=== PATIENT | male | born 1960 | race Caucasian/White ===

== ENCOUNTER → 2017-07-19 | Day surgery (SDC) | payer MEDICARE ==
--- NOTE | 2017-07-19 16:19 | RADIOLOGY REPORT (SQ) ---
EXAM DESCRIPTION: ARTHRO SHOULDER; FLUORO/NEEDLE PLACEMENT COMPLETED DATE/TIME: 07/19/2017 2:23 pm REASON FOR STUDY: SUPERIOR GLENOID LABRUM LESION OF RIGHT SHOULDER, S43.431A SUPERIOR GLENOID LABRU M LESION OF RIGHT SHOULDER, I COMPARISON: None. FLUOROSCOPY TIME: 6 seconds 1 digital radiographic image saved to PACS. LIMITATIONS: None. PROCEDURE: Procedure, risks, benefits and alternatives explained to patient who then gave written co nsent. The posterior right shoulder was marked and a time out was called for correct procedure verifi cation. Posterior entry site marked using fluoroscopic guidance. Shoulder prepped and draped using sterile technique. Local anesthesia achieved using 6 mL 1% lidocaine injection. 22 gauge spinal nee dle introduced into the joint space under direct fluoroscopic visualization. Non-ionic contrast insti lled to confirm intra-articular position. Dilute gadolinium solution then injected. Needle removed a nd entry site covered with sterile bandage. No immediate complications noted. TECHNIQUE: Digital images acquired during fluoroscopy and stored on PACS. Patient immediately take n to the MR suite for additional imaging. INJECTION LOCATION: Posterior right shoulder. CONTRAST TYPE AND AMOUNT: 0.5 mL of Isovue 300 injected to confirm intra-articular needle placement, followed by 15 mL of Prohance/Saline mixture for MR arthrogram. IMPRESSION: SUCCESSFUL NEEDLE PLACEMENT AND INJECTION FOR RIGHT SHOULDER MR ARTHROGRAM USING POSTERI OR APPROACH. COMMENT: Quality ID 145: Final reports for procedures using fluoroscopy that document radiation exp osure indices, or exposure time and number of fluorographic images (if radiation exposure indices are not available) TECHNICAL DOCUMENTATION: JOB ID: [id number] [employer]- All Rights Reserved Reading location - IP/workstation name: [facility]
--- NOTE | 2017-07-19 16:27 | RADIOLOGY REPORT (SQ) ---
EXAM DESCRIPTION: MRI RT UPPER JOINT WITH COMPLETED DATE/TIME: 07/19/2017 2:53 pm REASON FOR STUDY: SUPERIOR GLENOID LABRUM LESION OF RIGHT SHOULDER, S43.431A SUPERIOR GLENOID LABRU M LESION OF RIGHT SHOULDER, I COMPARISON: None. TECHNIQUE: Right shoulder images acquired and stored on PACS. Oblique coronal, oblique sagittal, and axial imaging to include fat sensitive sequences as T1, water sensitive sequences as FST2/STIR, and contrast sensitive sequences as FST1. LIMITATIONS: None. FINDINGS: JOINT DISTENTION: Intra-articular gadolinium. No extension into the subacromial/ subdelto id bursa. There is some extravasation along the subcoracoid recess. BONE MARROW AND CORTEX: Small subcortical cysts along the posterior aspect right humeral head greater tuberosity. There is bone marrow edema just deep to the superior labrum, along the bony glenoid AC JOINT: Type 1 acromion. Moderate AC hypertrophy with bony spurring and synovial thickening best sh own on sagittal image 9 GLENOHUMERAL JOINT: No subluxation or dislocation. No focal chondral defects or reactive bone changes . ROTATOR CUFF: Intact without significant tendinopathy, partial or full-thickness tears. No peritendin itis. LABRUM AND BICEPS LABRAL COMPLEX: Intra-articular long head biceps tendon is high in signal from tend inopathy. There is a superior labral tear at its attachment extending anteriorly and posteriorly wit hout paralabral cyst. This best shown on axial images 7-10 and sagittal images 6 through 9. INFERIOR LABRAL COMPLEX: Bony glenoid and labrum intact. IGHL intact without thickening or tear. No p aralabral cysts. ADJACENT SOFT TISSUES: No masses or nodes. OTHER: Trace fluid without gadolinium in the subacromial/subdeltoid bursa indicating mild bursitis. IMPRESSION: Intra-articular long head biceps tendinopathy with superior labral tear. Reactive bony glenoid marrow edema TECHNICAL DOCUMENTATION: JOB ID: [id number] [employer]- All Rights Reserved Reading location - IP/workstation name: [email or web address]
== END ==
LOC: RAD 13:30
PROVIDERS: ATTEND Orthopaedic Surgery
PROC: BP09ZZZ Plain Radiography of Left Shoulder (ICD-10-PCS; principal; 2017-07-19)
DX: S43.431A Superior glenoid labrum lesion of right shoulder, initial encounter (principal); X58.XXXA Exposure to other specified factors, initial encounter
CPT/HCPCS: 73222; 73040; 77002; A9576

== ENCOUNTER → 2017-07-20 | Day surgery (SDC) | payer MEDICARE ==
[~2017-07-20] MED LIST: LIDOCAINE 1% INJ-PF (10 MG/ML) 30 ML SDV ONE
--- NOTE | 2017-07-20 15:04 | RADIOLOGY REPORT (SQ) ---
EXAM DESCRIPTION: ARTHRO SHOULDER; FLUORO/NEEDLE PLACEMENT COMPLETED DATE/TIME: 07/20/2017 1:13 pm REASON FOR STUDY: UNSPECIFIED INJURY OF LEFT SHOULDER S49.92XA UNSP INJURY OF LEFT SHOULDER AND UPP ER ARM, INIT EN COMPARISON: None. FLUOROSCOPY TIME: 9 seconds 2 digital radiographic images saved to PACS. LIMITATIONS: None. PROCEDURE: Procedure, risks, benefits and alternatives explained to patient who then gave written co nsent. The posterior left shoulder was marked and a time out was called for correct procedure verific ation. Posterior entry site marked using fluoroscopic guidance. Shoulder prepped and draped using s terile technique. Local anesthesia achieved using 8 mL of 1% lidocaine injection. 22 gauge spinal n eedle introduced into the joint space under direct fluoroscopic visualization. Non-ionic contrast ins tilled to confirm intra-articular position. Dilute gadolinium solution then injected. Needle removed and entry site covered with sterile bandage. No immediate complications noted. TECHNIQUE: Digital images acquired during fluoroscopy and stored on PACS. Patient immediately take n to the MR suite for additional imaging. INJECTION LOCATION: Posterior left shoulder. CONTRAST TYPE AND AMOUNT: 1 mL of Isovue-300 was injected to confirm intra-articular needle placement followed by 10 mL of dilute ProHance saline mixture for MR arthrogram IMPRESSION: SUCCESSFUL NEEDLE PLACEMENT AND INJECTION FOR LEFT SHOULDER MR ARTHROGRAM USING POSTERIO R APPROACH. COMMENT: Quality ID 145: Final reports for procedures using fluoroscopy that document radiation exp osure indices, or exposure time and number of fluorographic images (if radiation exposure indices are not available) TECHNICAL DOCUMENTATION: JOB ID: [id number] [employer]- All Rights Reserved Reading location - IP/workstation name: [email or web address]
--- NOTE | 2017-07-20 15:04 | RADIOLOGY REPORT (SQ) ---
EXAM DESCRIPTION: ARTHRO SHOULDER; FLUORO/NEEDLE PLACEMENT COMPLETED DATE/TIME: 07/20/2017 1:13 pm REASON FOR STUDY: UNSPECIFIED INJURY OF LEFT SHOULDER S49.92XA UNSP INJURY OF LEFT SHOULDER AND UPP ER ARM, INIT EN COMPARISON: None. FLUOROSCOPY TIME: 9 seconds 2 digital radiographic images saved to PACS. LIMITATIONS: None. PROCEDURE: Procedure, risks, benefits and alternatives explained to patient who then gave written co nsent. The posterior left shoulder was marked and a time out was called for correct procedure verific ation. Posterior entry site marked using fluoroscopic guidance. Shoulder prepped and draped using s terile technique. Local anesthesia achieved using 8 mL of 1% lidocaine injection. 22 gauge spinal n eedle introduced into the joint space under direct fluoroscopic visualization. Non-ionic contrast ins tilled to confirm intra-articular position. Dilute gadolinium solution then injected. Needle removed and entry site covered with sterile bandage. No immediate complications noted. TECHNIQUE: Digital images acquired during fluoroscopy and stored on PACS. Patient immediately take n to the MR suite for additional imaging. INJECTION LOCATION: Posterior left shoulder. CONTRAST TYPE AND AMOUNT: 1 mL of Isovue-300 was injected to confirm intra-articular needle placement followed by 10 mL of dilute ProHance saline mixture for MR arthrogram IMPRESSION: SUCCESSFUL NEEDLE PLACEMENT AND INJECTION FOR LEFT SHOULDER MR ARTHROGRAM USING POSTERIO R APPROACH. COMMENT: Quality ID 145: Final reports for procedures using fluoroscopy that document radiation exp osure indices, or exposure time and number of fluorographic images (if radiation exposure indices are not available) TECHNICAL DOCUMENTATION: JOB ID: [id number] [employer]- All Rights Reserved Reading location - IP/workstation name: [facility]-[email or web address]
--- NOTE | 2017-07-20 15:17 | RADIOLOGY REPORT (SQ) ---
EXAM DESCRIPTION: MRI LT UPPER JOINT WITH COMPLETED DATE/TIME: 07/20/2017 1:45 pm REASON FOR STUDY: UNSPECIFIED INJURY OF LEFT SHOULDER S49.92XA UNSP INJURY OF LEFT SHOULDER AND UPP ER ARM, INIT EN COMPARISON: None. TECHNIQUE: Left shoulder images acquired and stored on PACS. Oblique coronal, oblique sagittal, and axial imaging to include fat sensitive sequences as T1, water sensitive sequences as FST2/STIR, and c ontrast sensitive sequences as FST1. LIMITATIONS: None. FINDINGS: JOINT DISTENTION: Adequate distention for interpretation. No leakage of intra-articular c ontrast into the subacromial/subdeltoid bursa. BONE MARROW AND CORTEX: No aggressive marrow replacement process worrisome for metastatic disease. S mall subcortical cyst posterior left humeral head at the greater tuberosity. AC JOINT: Type 1 acromion. Moderate AC joint hypertrophy with bony spurring and edema in the distal c lavicle/acromion. This best shown on coronal image 8, with mild narrowing of the subacromial space GLENOHUMERAL JOINT: No subluxation or dislocation. No focal chondral defects or reactive bone changes . ROTATOR CUFF: Intact without significant tendinopathy, partial or full-thickness tears. No peritendin itis. LABRUM AND BICEPS LABRAL COMPLEX: Intra-articular long head biceps tendon is high signal from tendino priya. There is a small superior labral tear on axial images 5-7. INFERIOR LABRAL COMPLEX: Bony glenoid and labrum intact. IGHL intact without thickening or tear. No p aralabral cysts. ADJACENT SOFT TISSUES: No masses or nodes. OTHER: No other significant finding. IMPRESSION: Small superior labral tear at the long head biceps tendon attachment. Long head biceps tendinopathy Acromioclavicular joint bony spurring with narrowing of the subacromial space. No rotator cuff tendon tear identified TECHNICAL DOCUMENTATION: JOB ID: [id number] [employer]- All Rights Reserved Reading location - IP/workstation name: [email or web address]
== END ==
LOC: RAD 12:38
PROVIDERS: ATTEND Orthopaedic Surgery
PROC: BP09ZZZ Plain Radiography of Left Shoulder (ICD-10-PCS; principal; 2017-07-20)
DX: S49.92XA Unspecified injury of left shoulder and upper arm, initial encounter (principal); S43.431A Superior glenoid labrum lesion of right shoulder, initial encounter; X58.XXXA Exposure to other specified factors, initial encounter
CPT/HCPCS: 73222; 73040; 77002; A9576; J3490

== ENCOUNTER 2017-11-12 15:13 | Inpatient (IN) | payer MEDICARE ==
[2017-11-12] MEDS ORDERED: PROMETHAZINE HCL INJ 25 MG/1 ML VIAL IM ONE (15:38)
[2017-11-12] MEDS ORDERED: MORPHINE SULFATE 10 MG/ML INJ IV ONE (15:48)
--- NOTE | 2017-11-12 15:53 | ER Document Report ---
ED General - General TRAVEL OUTSIDE OF THE [place] IN LAST 30 DAYS: No <DELL BRISCOE - Last Filed: 11/12/17 19:14> <VALERIE QUIGLEY - Last Filed: 11/12/17 22:42> - General Chief Complaint: Abdominal Pain Stated Complaint: ABDOMINAL PAIN Time Seen by Provider: 11/12/17 15:37 - HPI Notes: Patient is a 56-year-old male with a history of peptic ulcer disease, chronic back pain, and hypertension who presents to the ED complaining of severe epigastric pain with associated nausea and vomiting over the last 2 days. Patient states that he has not had a bowel movement in 2 days and has not urinated in 2 days as well. Patient states that his last bowel movement he believed was dark colored stool. Patient states that he does have a history of bleeding ulcers. Patient states that he has been having nausea and vomiting with just a scant amount of red blood noted. Patient states that he has vomited relatively nonstop over the last 2 days. He has not been able to eat or drink anything. Patient states that he feels like he has to urinate, but cannot. Patient states that he is on morphine tablets, but that has not helped with his pain at all. He otherwise has not had any other recent illness. Denies any surgical history to his abdomen. Denies any IV drug use or alcohol intake. His last endoscopy was about 5 years ago. Denies any headache, fever, neck pain, URI, sore throat, chest pain, palpitations, syncope, cough, shortness of breath, wheeze, dyspnea, diarrhea, acute back pain, numbness/ tingling, saddle anesthesia, muscle paralysis/weakness, or rash. Surgical hx of cholecystectomy. (DELL BRISCOE) - Related Data Allergies/Adverse Reactions: No Known Allergies Allergy (Verified 11/12/17 17:28) Past Medical History - Social History Smoking Status: Current Every Day Smoker Family History: Reviewed & Not Pertinent <DELL BRISCOE - Last Filed: 11/12/17 19:14> Review of Systems - Review of Systems -: Yes All other systems reviewed and negative <DELL BRISCOE - Last Filed: 11/12/17 19:14> Physical Exam <DELL BRISCOE - Last Filed: 08/05/18 19:14> <VALERIE QUIGLEY - Last Filed: 11/12/17 22:42> - Vital signs Vitals: Temp Pulse Resp BP Pulse Ox 98.9 F 77 18 166/101 H 99 11/12/17 15:13 11/12/17 15:13 11/12/17 15:13 11/12/17 15:13 11/12/17 15:13 - Notes Notes: PHYSICAL EXAMINATION: GENERAL: Well-appearing, well-nourished and in no acute distress. HEAD: Atraumatic, normocephalic. EYES: Pupils equal round and reactive to light, extraocular movements intact, sclera anicteric, conjunctiva are normal. ENT: Nares patent and without discharge. oropharynx clear without exudates. No tonsilar hypertrophy or erythema. Moist mucous membranes. NECK: Normal range of motion, supple without lymphadenopathy LUNGS: Breath sounds clear to auscultation bilaterally and equal. No wheezes rales or rhonchi. HEART: Regular rate and rhythm without murmurs, rubs, gallops. ABDOMEN: Soft abdomen. No guarding, no rebound. No masses appreciated. hypoactive bowel sounds present. No CVA tenderness bilaterally. + tenderness to the epigastrum and mid abdomen. Pt heard dry-heaving in his room. Rectal: stool was light brown and soft. No evidence of melena or hematochezia. No impaction. Musculoskeletal: FROM to passive/active. Strength 5+/5. Extremities: No cyanosis, clubbing, or edema b/l. Peripheral pulses 2+. Capillary refill less than 3 seconds. NEUROLOGICAL: Cranial nerves grossly intact. Normal speech, normal gait. PSYCH: Normal mood, normal affect. SKIN: Warm, Dry, normal turgor, no rashes or lesions noted. (DELL BRISCOE) Course - Laboratory Result Diagrams: 11/12/17 16:48 11/12/17 16:48 <DELL BRISCOE - Last Filed: 11/12/17 19:14> - Laboratory Result Diagrams: 11/12/17 16:48 11/12/17 16:48 <VALERIE QUIGLEY - Last Filed: 11/12/17 22:42> - Re-evaluation Re-evalutation: 11/12/17 19:14 CBC shows a 19.1 white blood cell count with a left shift, no bands. Venous blood gas shows slightly alkalotic blood. CMP shows slightly elevated carbon dioxide, potassium 3.4, CMP otherwise acceptable CK was unremarkable for acute pathology Lactic acid was elevated at 3.2 Stool occult negative. Lipase unremarkable. Rectal temp of 100.3 --toradol ordered Urinalysis was unremarkable and was obtained by Carrillo catheterization. Patient was unable to void and when a Carrillo was placed 300 cc was immediately obtained. Carrillo will remain in place at this time. Reviewed with Dr. Laughlin. Awaiting CT scan of abd/pelv with oral and IV. Plan is to admit planning CT result. Transfer of care to Valerie Pro NP. (DELL BRISCOE) 11/12/17 20:41 Spoke with hospitalist, Dr. Chapo Hurtado who would like a repeat lactic acid drawn. Will hold off on excepting patient for admission until this is resulted. 11/12/17 21:42 Dr. Hurtado requesting EKG and cardiac enzymes to be ran. If negative then he will admit the patient, orders placed. Patient updated on plan of care. 11/12/17 22:40 Cardiac enzymes negative, EKG sinus rhythm no ST elevations or depressions. Will replace KCL IV as patient cannot tolerate PO. Mag normal. Patient admitted to hospitalist. (VALERIE QUIGLEY) - Vital Signs Vital signs: Temp Pulse Resp BP Pulse Ox 100.3 F 78 16 166/79 H 98 11/12/17 19:09 11/12/17 18:43 11/12/17 18:43 11/12/17 18:43 11/12/17 18:43 - Laboratory Laboratory results interpreted by me: 11/12/17 11/12/17 11/12/17 16:48 16:48 16:48 WBC 19.1 H RDW 14.1 H Seg Neuts % (Manual) 96 H Lymphocytes % (Manual) 3 L Monocytes % (Manual) 1 L Abs Neuts (Manual) 18.3 H VBG pH VBG HCO3 Sodium 145.3 H Potassium 3.4 L Chloride 94 L Carbon Dioxide 33 H Glucose 118 H Lactic Acid 3.2 H Calcium 10.4 H Magnesium Direct Bilirubin 0.5 H Creatine Kinase Total Protein 8.3 H Urine Protein Urine Ketones Urine Urobilinogen 11/12/17 11/12/17 11/12/17 16:48 16:48 17:12 WBC RDW Seg Neuts % (Manual) Lymphocytes % (Manual) Monocytes % (Manual) Abs Neuts (Manual) VBG pH 7.47 H VBG HCO3 33.2 H Sodium Potassium Chloride Carbon Dioxide Glucose Lactic Acid Calcium Magnesium Direct Bilirubin Creatine Kinase 49 L Total Protein Urine Protein 30 H Urine Ketones TRACE H Urine Urobilinogen 2.0 H 11/12/17 21:25 WBC RDW Seg Neuts % (Manual) Lymphocytes % (Manual) Monocytes % (Manual) Abs Neuts (Manual) VBG pH VBG HCO3 Sodium Potassium Chloride Carbon Dioxide Glucose Lactic Acid Calcium Magnesium 2.5 H Direct Bilirubin Creatine Kinase Total Protein Urine Protein Urine Ketones Urine Urobilinogen Discharge <DELL BRISCOE - Last Filed: 11/12/17 19:14> - Discharge Admitting Provider: Hospitalist <VALERIE QUIGLEY - Last Filed: 11/12/17 22:42> - Discharge Clinical Impression: Abdominal pain Qualifiers: Abdominal location: epigastric Qualified Code(s): R10.13 - Epigastric pain Vomiting Qualifiers: Vomiting Intractability: unspecified Nausea presence: with nausea Condition: Stable Disposition: ADMITTED OBSERVATION Referrals: TRUDY DAIGLE [Primary Care Provider] - Follow up as needed
[2017-11-12] MEDS: NORMAL SALINE 1000 ML 1,000 ML IV PRN ×3 (16:22→23:04)
[2017-11-12 17:07] LABS: VENOUS BLOOD BASE EXCESS 8.1 mmol/L; VENOUS BLOOD HCO3 33.2 mmol/L (20-32); VENOUS BLOOD PCO2 47.2 mmHg (35-63); VENOUS BLOOD PH 7.47 (7.30-7.42)
[2017-11-12 17:24] LABS: ALANINE AMINOTRANSFERASE 35 U/L (21-72); ALBUMIN 4.8 g/dL (3.5-5.0); ALKALINE PHOSPHATASE 110 U/L (38-126); ANION GAP 18 (5-19); ASPARTATE AMINO TRANSFERASE 29 U/L (17-59); BILIRUBIN,DIRECT 0.5 mg/dL (0.0-0.4); BILIRUBIN,TOTAL 0.9 mg/dL (0.2-1.3); BLOOD UREA NITROGEN 15 mg/dL (7-20); CALCIUM 10.4 mg/dL (8.4-10.2); CARBON DIOXIDE 33 mmol/L (22-30); CHLORIDE 94 mmol/L (98-107); GLUCOSE 118 mg/dL (75-110); LIPASE 44.2 U/L (23-300); POTASSIUM 3.4 mmol/L (3.6-5.0); SODIUM 145.3 mmol/L (137-145); TOTAL PROTEIN 8.3 g/dL (6.3-8.2)
[2017-11-12 17:25] LABS: ALCOHOL < 10 mg/dL (NONE DETECTED)
[2017-11-12 17:26] LABS: HEMATOCRIT 45.1 % (37.9-51.0); HEMOGLOBIN 15.8 g/dL (13.5-17.0); MEAN CORPUSCULAR HEMOGLOBIN 31.2 pg (27.0-33.4); MEAN CORPUSCULAR VOLUME 89 fl (80-97); PLATELET COUNT 367 10^3/uL (150-450); RED BLOOD COUNT 5.06 10^6/uL (4.35-5.55); RED CELL DISTRIBUTION WIDTH 14.1 % (11.5-14.0); WHITE BLOOD COUNT 19.1 10^3/uL (4.0-10.5)
[2017-11-12] MEDS ORDERED: HYDROMORPHONE HCL INJ/PF 2 MG/ML AMPULE IV ONE ×3 (17:27→21:17)
[2017-11-12 17:29] LABS: APPEARANCE,URINE SLIGHTLY-CLOUDY; BILIRUBIN,URINE NEGATIVE (NEGATIVE); COLOR,URINE YELLOW; GLUCOSE, URINE NEGATIVE (NEGATIVE); KETONES,URINE TRACE mg/dL (NEGATIVE); LEUKOCYTE ESTERASE,URINE NEGATIVE (NEGATIVE); NITRITE,URINE NEGATIVE (NEGATIVE); PROTEIN,URINE 30 mg/dL (NEGATIVE); URINE SPECIFIC GRAVITY 1.021
[2017-11-12 17:45] LABS: URINE AMPHETAMINES SCREEN NEGATIVE; URINE BARBITURATES SCREEN NEGATIVE; URINE BENZODIAZEPINES SCREEN NEGATIVE; URINE COCAINE SCREEN NEGATIVE; URINE MARIJUANA (THC) SCREEN UNCONFIRMED POSITIVE; URINE METHADONE SCREEN NEGATIVE; URINE PHENCYCLIDINE SCREEN NEGATIVE
[2017-11-12 17:46] LABS: ABSOLUTE LYMPHOCYTES# (MANUAL) 0.6 10^3/uL (0.5-4.7); ABSOLUTE MONOCYTES # (MANUAL) 0.2 10^3/uL (0.1-1.4); ABSOLUTE NEUTROPHILS# (MANUAL) 18.3 10^3/uL (1.7-8.2); BASOPHILS % (MANUAL) 0 % (0-2); EOSINOPHILS % (MANUAL) 0 % (0-6); LYMPHOCYTES % (MANUAL) 3 % (13-45); MONOCYTES % (MANUAL) 1 % (3-13); SEGMENTED NEUTROPHILS % (MAN) 96 % (42-78); TOTAL CELLS COUNTED 100
[2017-11-12 17:47] LABS: PLATELET COMMENT ADEQUATE; POIKILOCYTOSIS SLIGHT; STOMATOCYTES SLIGHT
[2017-11-12 17:49] LABS: ANISOCYTOSIS SLIGHT; CREATINE KINASE 49 U/L (55-170)
--- NOTE | 2017-11-12 18:19 | RADIOLOGY REPORT (SQ) ---
EXAM DESCRIPTION: CHEST SINGLE VIEW COMPLETED DATE/TIME: 11/12/2017 6:03 pm REASON FOR STUDY: epigastric pain COMPARISON: None. EXAM PARAMETERS: NUMBER OF VIEWS: One view. TECHNIQUE: Single frontal radiographic view of the chest acquired. RADIATION DOSE: NA LIMITATIONS: None. FINDINGS: LUNGS AND PLEURA: No opacities, masses or pneumothorax. No pleural effusion. MEDIASTINUM AND HILAR STRUCTURES: No masses. Contour normal. HEART AND VASCULAR STRUCTURES: Heart normal in size. Normal vasculature. BONES: No acute findings. HARDWARE: None in the chest. OTHER: No other significant finding. IMPRESSION: NO ACUTE RADIOGRAPHIC FINDING IN THE CHEST. TECHNICAL DOCUMENTATION: JOB ID: [id number] [employer]- All Rights Reserved Reading location - IP/workstation name: [email or web address]
[2017-11-12] MEDS ORDERED: NORMAL SALINE 1000 ML 1,000 ML IV ONE (18:54)
[2017-11-12] MEDS ORDERED: KETOROLAC TROMETHAMINE INJ/PF 30 MG/1 ML SDV IV ONE (19:13)
--- NOTE | 2017-11-12 19:59 | RADIOLOGY REPORT (SQ) ---
EXAM DESCRIPTION: CT ABD/PELVIS WITH IV ORAL COMPLETED DATE/TIME: 11/12/2017 7:43 pm REASON FOR STUDY: abd pain, n/v COMPARISON: 12/08/2011 TECHNIQUE: CT scan of the abdomen and pelvis performed using helical scanning technique with dynamic intravenous contrast injection. No oral contrast. Images reviewed with lung, soft tissue, and bone windows. Reconstructed coronal and sagittal MPR images reviewed. Delayed images for evaluation of the urinary system also acquired. All images stored on PACS. All CT scanners at this facility use dose modulation, iterative reconstruction, and/or weight based d osing when appropriate to reduce radiation dose to as low as reasonably achievable (ALARA). [facility]: Dose Right [facility]: CareDose [facility]: Dose Right [facility]: Teradose 4D [facility]: [employer] CONTRAST TYPE AND DOSE: contrast/concentration: Isovue 350.00 mg/ml; Total Contrast Delivered: 79.0 ml; Total Saline Delivered: 68.0 ml RENAL FUNCTION: GFR > 60. RADIATION DOSE: CT Rad equipment meets quality standard of care and radiation dose reduction techniq ues were employed. CTDIvol: 9.9 - 14.3 mGy. DLP: 1283 mGy-cm.. LIMITATIONS: None. FINDINGS: LOWER CHEST: No significant findings. No nodules or infiltrates. LIVER: Normal size. No masses. No dilated ducts. SPLEEN: Normal size. No focal lesions. PANCREAS: No masses. No significant calcifications. No adjacent inflammation or peripancreatic fluid collections. Pancreatic duct not dilated. GALLBLADDER: Surgically absent. ADRENAL GLANDS: No significant masses or asymmetry. RIGHT KIDNEY AND URETER: No solid masses. Lower pole scarring and calcifications. No hydronephros is or hydroureter. LEFT KIDNEY AND URETER: No solid masses. No significant calcifications. No hydronephrosis or hydr oureter. AORTA AND VESSELS: 3.5 cm infrarenal abdominal aortic aneurysm. No dissection. Renal arteries, SMA, c eliac without stenosis. RETROPERITONEUM: No retroperitoneal adenopathy, hemorrhage or masses. BOWEL AND PERITONEAL CAVITY: No masses or inflammatory changes. No obstruction. No free fluid or pe ritoneal masses. APPENDIX: Normal. PELVIS: No free fluid. Carrillo catheter decompresses the bladder. ABDOMINAL WALL: No masses. No hernias. BONES: No acute findings. OTHER: No other significant finding. IMPRESSION: No acute inflammatory changes or evidence for obstruction. TECHNICAL DOCUMENTATION: JOB ID: [id number] Quality ID # [id number]: Final reports with documentation of one or more dose reduction techniques (e.g., Au tomated exposure control, adjustment of the mA and/or kV according to patient size, use of iterative reconstruction technique) 2010 [employer]- All Rights Reserved Reading location - IP/workstation name: [facility]
[2017-11-12] MEDS ORDERED: ONDANSETRON HCL INJ/PF 4 MG/2 ML SDV IV ONE (22:19)
[2017-11-12 22:34] LABS: CREATINE KINASE MB 0.8 ng/mL (<4.55); TROPONIN I 0.015 ng/mL
[2017-11-12] MEDS ORDERED: ONDANSETRON 4 MG TAB.RAPDIS PO PRN (22:39)
[2017-11-12] MEDS ORDERED: ZOLPIDEM TARTRATE 5 MG TABLET PO PRN (22:39)
[2017-11-12] MEDS ORDERED: ACETAMINOPHEN 325 MG TABLET PO PRN (22:39)
[2017-11-12] MEDS ORDERED: MAGNESIUM HYDROXIDE SUSP 30 ML UDCUP PO PRN (22:39)
[2017-11-12] MEDS ORDERED: ONDANSETRON HCL INJ/PF 4 MG/2 ML SDV IV PRN (22:39)
[2017-11-12] MEDS: POTASSI CL 20 MEQ/50 ML RIDER 20 MEQ/50 ML RTUPB IV SCH (23:03)
[2017-11-12] MEDS: OXYCODONE-ACETAMINOPHEN 5-325 MG TABLET PO PRN (23:18)
--- NOTE | 2017-11-12 23:39 | EKG REPORT ---
SEVERITY:- NORMAL ECG - SINUS RHYTHM : Confirmed by: Stevenson Lewis 12-Nov-2017 23:38:54
[2017-11-13] MEDS ORDERED: CEFTRIAXONE INJ 1000 MG VIAL IV ONE (00:18)
--- NOTE | 2017-11-13 00:25 | PDOC H&P ---
History of Present Illness Admission Date/PCP: 11/12/17 23:01 TRUDY DAIGLE MD Patient complains of: Abdominal pain History of Present Illness: LIZ PAGE JR is a 56 year old male with history of multiple medical problems that will be mentioned below who presented to the emergency room with acute onset of epigastric abdominal pain over the last couple of days with associated intractable nausea and vomiting today. He has been having low- grade fever and stated that at home he has been feeling cold and hot. He has noted occasional bright red blood in his stools but denies any melena. He has a history of peptic ulcer disease. He denied any hematuria or other bleeding diathesis. He admits to occasional dysuria with slightly diminished urine output. No chest pain or palpitations. No cough or wheezing or hemoptysis. When he came to the emergency room, his blood pressure was elevated 166/101 with a pulse of 77 respiratory rate of 18 temperature 98.9 and pulse oximetry 99 % on room air. His labs revealed significant leukocytosis of 19.1 with neutrophilia with hemoglobin of 15.8 hematocrit 45.1 and platelets 367. His sodium was 145.3 and potassium 3.4, chloride 94, CO2 33, BUN 15, creatinine 0.81 glucose 118. Initial lactic acid was 3.2 and later on came down to 1.3. Initial set of cardi. Stool Hemoccult came back negative. Cardiac enzymes came back negative with troponin I of 0.015 and CK of 49. The urinalysis came back with 30 protein and trace bacteria was 2 WBCs. The patient was given hydration with IV normal saline as well as 25 mg of IM Phenergan, 4 mg of IV morphine sulfate and 1 mg of IV Dilaudid and later on a total of 1-1/2 mg in addition to 30 mg of IV Toradol and 4 mg of IV Zofran. His abdominal pelvic CT scan revealed no acute abnormalities except for 3.2 cm abdominal aortic aneurysm. The patient believes that he could have been told that he had such aneurysm in the past. He will be admitted to a telemetry bed for further evaluation and management. Past Medical History Past Medical History: Positive for ongoing tobacco abuse, peptic ulcer disease, hypertension, chronic back pain and right rotator cuff tear. Cardiac Medical History: Reports: Hypertension Past Surgical History Past Surgical History: Positive for cholecystectomy, back surgery and right ankle reconstruction. Social History Smoking Status: Current Every Day Smoker - He smokes 1-1-1/2 pack of cigarettes per day. Family History Family History: CAD, DM Parental Family History Reviewed: Yes Children Family History Reviewed: Yes Sibling(s) Family History Reviewed.: Yes Medication/Allergy Allergies/Adverse Reactions: No Known Allergies Allergy (Verified 11/12/17 17:28) Physical Exam Vital Signs: Temp Pulse Resp BP Pulse Ox 98 F 78 15 164/93 H 96 11/12/17 23:14 11/12/17 18:43 11/12/17 23:15 11/12/17 23:14 11/12/17 23:15 Results Impressions: Abdomen/Pelvis CT 11/12/17 00:00 IMPRESSION: No acute inflammatory changes or evidence for obstruction. Chest X-Ray 11/12/17 15:39 IMPRESSION: NO ACUTE RADIOGRAPHIC FINDING IN THE CHEST. Assessment & Plan - Diagnosis (1) Acute gastroenteritis Is this a current diagnosis for this admission?: Yes Plan: The patient will be admitted to an observation medically monitored bed. Will place him on hydration with IV normal saline and keep him n.p.o. overnight. We will obtain stool studies. Given initially elevated lactic acid level will place him on IV Rocephin especially given his low-grade fever. He may need outpatient GI evaluation given his bright red bleeding per rectum. We will follow his hemoglobin and hematocrit with CBC in a.m. His stool Hemoccult came back negative and he will be placed on IV PPI therapy. (2) Epigastric pain Plan: We will place the patient on IV PPI therapy for the possibility of underlying acute gastritis. (3) Intractable nausea and vomiting Is this a current diagnosis for this admission?: Yes Plan: We will place the patient on as needed antiemetics. Will obtain serial cardiac enzymes. Initial set came back negative. (4) Hypertension Qualifiers: Hypertension type: essential hypertension Qualified Code(s): I10 - Essential (primary) hypertension Is this a current diagnosis for this admission?: Yes Plan: The patient will be placed on as needed IV labetalol (5) Tobacco abuse Plan: I counseled the patient for smoking cessation and the patient will receive further counseling here. (6) Chronic back pain Is this a current diagnosis for this admission?: Yes Plan: Pain management will be provided (7) DVT prophylaxis Plan: Subcutaneous Lovenox - Plan Summary Plan Summary: The plan of care was discussed in details with the patient. I answered all questions. The patient agreed to proceed with the above-mentioned plan. The patient is presumably full code. This note was created by [employer] software and may contain typo errors that may have not been proofread.
[2017-11-13] MEDS ORDERED: LABETALOL HCL INJ 20 MG/4 ML DISP.SYRIN IV PRN ×2 (00:39→01:30)
[2017-11-13] MEDS: POTASSI CL 20 MEQ/50 ML RIDER 20 MEQ/50 ML RTUPB IV SCH (01:01)
[2017-11-13] MEDS: OXYCODONE-ACETAMINOPHEN 5-325 MG TABLET PO PRN (04:01)
[2017-11-13] MEDS ORDERED: LIDOCAINE 0.5% INJ-PF (5 MG/ML) 50 ML SDV ONE (06:42)
--- NOTE | 2017-11-13 06:53 | EKG REPORT ---
SEVERITY:- BORDERLINE ECG - SINUS RHYTHM VENTRICULAR PREMATURE COMPLEX BORDERLINE PROLONGED QT INTERVAL : Confirmed by: Stevenson Lewis 13-Nov-2017 06:52:53
[2017-11-13] MEDS ORDERED: HYDROMORPHONE HCL INJ/PF 2 MG/ML AMPULE ONE (06:59)
--- NOTE | 2017-11-13 07:42 | RADIOLOGY REPORT (SQ) ---
EXAM DESCRIPTION: CHEST SINGLE VIEW COMPLETED DATE/TIME: 11/13/2017 7:25 am REASON FOR STUDY: verification of central line placement. COMPARISON: AP chest 11/12/2017 EXAM PARAMETERS: NUMBER OF VIEWS: One view. TECHNIQUE: Single frontal radiographic view of the chest acquired. RADIATION DOSE: NA LIMITATIONS: None. FINDINGS: Left subclavian central venous catheter tip in the superior vena cava. No pneumothorax. LUNGS AND PLEURA: No opacities, masses or pneumothorax. No pleural effusion. MEDIASTINUM AND HILAR STRUCTURES: No masses. Contour normal. HEART AND VASCULAR STRUCTURES: Heart normal in size. Normal vasculature. BONES: No acute findings. HARDWARE: Left subclavian central line tip superior vena cava. No pneumothorax OTHER: No other significant finding. IMPRESSION: Left subclavian central line tip superior vena cava. No pneumothorax TECHNICAL DOCUMENTATION: JOB ID: [id number] [employer]- All Rights Reserved Reading location - IP/workstation name: [email or web address]
[2017-11-13] MEDS ORDERED: ONDANSETRON 4 MG TAB.RAPDIS PO PRN (08:00)
[2017-11-13] MEDS ORDERED: CEFTRIAXONE 1 GM/D5W RTU 1 GM/50 ML RTUPB IV SCH (10:00)
[2017-11-13] MEDS ORDERED: METOCLOPRAMIDE HCL ORAL SOLN 10 MG/10 ML UDCUP PO ONE (10:37)
[2017-11-13] MEDS ORDERED: LIDOCAINE 2% VISCOUS SOLN 20 ML UDCUP PO ONE (10:37)
[2017-11-13] MEDS ORDERED: LORAZEPAM INJ 2 MG/1 ML VIAL IV ONE ×2 (10:37→16:30)
[2017-11-13] MEDS ORDERED: MAG HYDROX/AL HYDROX/SIMETH SUSP 30 ML UDCUP PO ONE (10:37)
[2017-11-13] MEDS: ENOXAPARIN SODIUM INJ 40 MG/0.4 ML DISP.SYRIN SUBCUT SCH (11:06)
[2017-11-13] MEDS: PANTOPRAZOLE SODIUM 40 MG VIAL IV SCH ×2 (11:14→23:37)
[2017-11-13] MEDS: CEFTRIAXONE SODIUM 1,000 MG in NORMAL SALINE 50 ML IV SCH (11:25)
[2017-11-13] MEDS: MORPHINE SULFATE 10 MG/ML INJ IV PRN ×2 (11:32→15:54)
[2017-11-13 11:50] LABS: ABSOLUTE BASOPHILS # (AUTO) 0.1 10^3/uL (0.0-0.2); ABSOLUTE LYMPHOCYTES (AUTO) 1.5 10^3/uL (0.5-4.7); ABSOLUTE MONOCYTES (AUTO) 1.2 10^3/uL (0.1-1.4); BASOPHILS % (AUTO) 0.6 % (0-2); HEMATOCRIT 42.3 % (37.9-51.0); HEMOGLOBIN 14.2 g/dL (13.5-17.0); LYMPHOCYTES % (AUTO) 8.1 % (13-45); MEAN CORPUSCULAR HEMOGLOBIN 30.5 pg (27.0-33.4); MEAN CORPUSCULAR HGB CONC 33.6 g/dL (32.0-36.0); MEAN CORPUSCULAR VOLUME 91 fl (80-97); MONOCYTES % (AUTO) 6.1 % (3-13); PLATELET COUNT 307 10^3/uL (150-450); RED BLOOD COUNT 4.66 10^6/uL (4.35-5.55); RED CELL DISTRIBUTION WIDTH 14.1 % (11.5-14.0); SEGMENTED NEUTROPHILS % (AUTO) 85.2 % (42-78); TOTAL CELLS COUNTED % (AUTO) 100 %; WHITE BLOOD COUNT 18.8 10^3/uL (4.0-10.5)
[2017-11-13 12:20] LABS: ALANINE AMINOTRANSFERASE 37 U/L (21-72); ALBUMIN 4.1 g/dL (3.5-5.0); ALKALINE PHOSPHATASE 93 U/L (38-126); ANION GAP 15 (5-19); ASPARTATE AMINO TRANSFERASE 27 U/L (17-59); BILIRUBIN,DIRECT 0.4 mg/dL (0.0-0.4); BLOOD UREA NITROGEN 8 mg/dL (7-20); CALCIUM 8.7 mg/dL (8.4-10.2); CARBON DIOXIDE 26 mmol/L (22-30); CHLORIDE 99 mmol/L (98-107); CREATINE KINASE 123 U/L (55-170); GLUCOSE 82 mg/dL (75-110); POTASSIUM 3.4 mmol/L (3.6-5.0); SODIUM 139.9 mmol/L (137-145); TOTAL PROTEIN 6.5 g/dL (6.3-8.2)
--- NOTE | 2017-11-13 12:45 | OPERATIVE REPORT E ---
Operative Report NAME: LIZ PAGE : 1960 AGE: 56Y DATE OF SURGERY: 11/13/2017 ROOM: 407 PREOPERATIVE DIAGNOSIS: Poor veins for IV access. POSTOPERATIVE DIAGNOSIS: Poor veins for IV access. OPERATION: Placement of left subclavian triple lumen catheter. SURGEON: RICK KIRKLAND M.D. ANESTHESIA: Local. INDICATIONS: This 56-year-old male was admitted for gastritis. Patient's IV in the veins unable to be obtained by the nurse after attempted several times. DESCRIPTION OF PROCEDURE: Patient was placed in Trendelenburg position. The left clavicular area and neck were then prepped and draped in the usual sterile fashion. Local anesthesia was infiltrated at the left infraclavicular area and the left subclavian vein punctured and guidewire passed through the needle towards the area of the superior vena cava. The needle was removed, the puncture site dilated, and a triple-lumen catheter inserted through the guidewire to a distance of about 18 cm. All the 3 ports of the catheter then aspirated blood easily and instilled saline easily. The catheter was then anchored to the skin with 3-0 silk and a Biopatch placed at the insertion site. A sterile dressing was placed over the catheter. A chest x-ray will be placed for placement. The patient tolerated the procedure well. DICTATING PHYSICIAN: RICK KRIKLAND M.D. [id number] PHY#: [id number] ID: [id number] JOB#: [id number] ACCT: [id number] cc:RICK KIRKLAND M.D. >
[2017-11-13] MEDS: MORPHINE SULFATE 10 MG/ML INJ IV SCH ×3 (14:47→23:38)
[2017-11-13] MEDS: NORMAL SALINE 1000 ML 1,000 ML IV PRN (14:50)
[2017-11-13] MEDS: HYDRALAZINE HCL INJ/PF 20 MG/1 ML SDV IV PRN (15:45)
[2017-11-13] MEDS: PROMETHAZINE HCL INJ 25 MG/1 ML VIAL IV PRN (15:58)
[2017-11-13] MEDS ORDERED: MORPHINE SULFATE 10 MG/ML INJ IV PRN (16:27)
[2017-11-13] MEDS ORDERED: MORPHINE SULFATE 10 MG/ML INJ IV ONE (17:00)
[2017-11-13] MEDS ORDERED: NICOTINE 21 MG/24 HR PATCH.TD24 TD PRN (18:57)
--- NOTE | 2017-11-13 19:22 | PDOC PROGRESS REPORT ---
Subjective Progress Note for:: 11/13/17 Subjective:: The patient is a 56-year-old male with a past medical history significant for hypertension, chronic pain, PUD, tobacco and opiate dependence who was admitted on 11/12/17 for gastritis with intractable nausea and vomiting. The patient was seen on morning rounds with his daughter present. He was found resting in bed comfortably on room air. He reports continued epigastric pain radiating to his left chest, not especially worsened by position changes or p.o. intake, described as burning. The patient reports continued episodes of nausea and vomiting. He denies further episodes of diarrhea and reports that the diarrhea last night was related to the oral contrast. He states that he did not have any loose bowel movements prior to coming to the emergency department. He denies fever, chills, headache, dizziness, palpitations, dyspnea, orthopnea. He has no other questions or concerns. Nursing called later in the day to report that the patient is experiencing severe pain not relieved by his currently dosed morphine. Home medications were reviewed, schedule IV morphine was initiated in lieu of the patient's home MS Contin 30 mg twice daily dose with as needed dosing available. Reason For Visit: ACUTE GASTROENTERITIS, INTRACTABLE NAUSEA AND Physical Exam Vital Signs: Temp Pulse Resp BP Pulse Ox 99.0 F 86 18 172/112 H 98 11/13/17 15:36 11/13/17 15:36 11/13/17 15:36 11/13/17 15:36 11/13/17 15:36 Intake & Output 11/12/17 11/13/17 11/14/17 06:59 06:59 06:59 Intake Total 479 751 Output Total 1175 825 Balance -696 -74 Weight 67.5 kg General appearance: PRESENT: no acute distress, cooperative, well-developed, well-nourished Head exam: PRESENT: atraumatic, normocephalic Eye exam: PRESENT: conjunctiva pink, EOMI, PERRLA. ABSENT: scleral icterus Ear exam: PRESENT: normal external ear exam Mouth exam: PRESENT: moist, tongue midline Neck exam: ABSENT: carotid bruit, JVD, lymphadenopathy, thyromegaly Respiratory exam: PRESENT: clear to auscultation pedro, symmetrical, unlabored. ABSENT: rales, rhonchi, wheezes Cardiovascular exam: PRESENT: RRR, tachycardia. ABSENT: diastolic murmur, rubs , systolic murmur Pulses: PRESENT: normal dorsalis pedis pul Vascular exam: PRESENT: normal capillary refill GI/Abdominal exam: PRESENT: hyperactive bowel sounds, soft, tenderness. ABSENT : distended, guarding, mass, organolmegaly, rebound Rectal exam: PRESENT: deferred Extremities exam: PRESENT: full ROM. ABSENT: calf tenderness, clubbing, pedal edema Neurological exam: PRESENT: alert, awake, oriented to person, oriented to place , oriented to time, oriented to situation, CN II-XII grossly intact. ABSENT: motor sensory deficit Psychiatric exam: PRESENT: appropriate affect, normal mood. ABSENT: homicidal ideation, suicidal ideation Skin exam: PRESENT: dry, intact, warm. ABSENT: cyanosis, rash Results Laboratory Results: 11/13/17 10:42 11/13/17 10:42 11/13/17 11/13/17 10:42 10:42 WBC 18.8 H RBC 4.66 Hgb 14.2 Hct 42.3 MCV 91 MCH 30.5 MCHC 33.6 RDW 14.1 H Plt Count 307 Seg Neutrophils % 85.2 H Lymphocytes % 8.1 L Monocytes % 6.1 Eosinophils % 0.0 Basophils % 0.6 Absolute Neutrophils 16.0 H Absolute Lymphocytes 1.5 Absolute Monocytes 1.2 Absolute Eosinophils 0.0 Absolute Basophils 0.1 Sodium 139.9 Potassium 3.4 L Chloride 99 Carbon Dioxide 26 Anion Gap 15 BUN 8 Creatinine 0.71 Est GFR ( Amer) > 60 Est GFR (Non-Af Amer) > 60 Glucose 82 Calcium 8.7 Total Bilirubin 1.0 AST 27 ALT 37 Alkaline Phosphatase 93 Total Protein 6.5 Albumin 4.1 11/13/17 10:42 Creatine Kinase 123 Impressions: Abdomen/Pelvis CT 11/12/17 00:00 IMPRESSION: No acute inflammatory changes or evidence for obstruction. Chest X-Ray 11/13/17 06:51 IMPRESSION: Left subclavian central line tip superior vena cava. No pneumothorax Assessment & Plan - Diagnosis (1) Acute gastroenteritis Is this a current diagnosis for this admission?: Yes Plan: The patient was admitted for abdominal pain with intractable nausea and vomiting. Chest x-ray and contrasted CT of the abdomen and pelvis were benign. Lipase is normal. He is noted to have leukocytosis. The patient is admitted to the medical floor on continuous cardiac telemetry. He is provided IV fluids and placed in n.p.o. status with the exception of ice chips. Antiemetics and analgesics as needed. (2) Epigastric pain Is this a current diagnosis for this admission?: Yes Plan: Likely gastritis/esophagitis related to nausea and vomiting. CT of the abdomen and pelvis is benign. CTA of the chest is pending. He is placed on Protonix 40 mg IV twice daily. There was no relief with GI cocktail today. IV morphine as outlined elsewhere. (3) Hypertension Qualifiers: Hypertension type: essential hypertension Qualified Code(s): I10 - Essential (primary) hypertension Is this a current diagnosis for this admission?: Yes Plan: The patient is unable to tolerate p.o. antihypertensives at this time; continues to have nausea and vomiting. Unfortunately, the hospital is on back order for IV labetalol. He is placed on a clonidine patch with IV hydralazine as needed for blood pressure control. (4) Intractable nausea and vomiting Is this a current diagnosis for this admission?: Yes Plan: Secondary to gastroenteritis and likely opiate withdrawal secondary to inability to tolerate p.o. medications for the last 3-4 days. He is placed on scheduled and as needed IV morphine. Antiemetics as needed. (5) Leukocytosis Is this a current diagnosis for this admission?: Yes Plan: Elevated to 19.1; slight downward trend today to 18.8. T-max in last 24 hours 100.3. Urinalysis is negative for UTI. Chest x-ray is benign. Blood and urine cultures are pending. Stool studies pending. He was empirically placed on Rocephin, will adjust as cultures result or more definitive evidence of infection presents itself. (6) Chronic back pain Is this a current diagnosis for this admission?: Yes Plan: The patient has chronic pain treated as an outpatient with MS Contin 30 mg twice daily with morphine IR 15 mg daily as needed. While n.p.o. and actively vomiting, the patient is provided scheduled morphine 4 mg IV q6 hours to prevent opiate withdrawal with 2 mg every 2 hours as needed for breakthrough pain. (7) Opiate dependence, continuous Is this a current diagnosis for this admission?: Yes Plan: As above. (8) Tobacco abuse Is this a current diagnosis for this admission?: Yes Plan: Smoking cessation is encouraged, nicotine replacement therapies are provided. (9) DVT prophylaxis Is this a current diagnosis for this admission?: Yes Plan: Lovenox. - Time Time Spent with patient: 15-24 minutes Medications reviewed and adjusted accordingly: Yes Anticipated discharge: Home
--- NOTE | 2017-11-14 02:01 | RADIOLOGY REPORT (SQ) ---
EXAM DESCRIPTION: CT CHEST ANGIOGRAPHY WITHOUT THEN WITH IV CONTRAST COMPLETED DATE/TME: 11/14/2017 00:00 CLINICAL HISTORY: 56 years, Male, Chest pain COMPARISON: None. TECHNIQUE: 636 Images stored on PACS. All CT scanners at this facility use dose modulation, iterative reconstruction, and/or weight based dosing when appropriate to reduce radiation dose to as low as reasonably achievable (ALARA). [facility]: Dose Right [facility]: CareDose [facility]: Dose Right [facility]: Teradose 4D [facility]: [employer] LIMITATIONS: None. FINDINGS: Aorta is normal in caliber without dissection or rupture. Scattered foci of calcification in aorta and in the coronary arteries. There is no evidence of filling defect in the main pulmonary arteries or the proximal branches to suggest embolus. There is an area of diminished attenuation in a segmental right upper lobe. I suspect that this is related to volume averaging as there is no evidence to suggest embolus on the reformatted images. This is seen on the axial sequence three image 43. The possibility of embolus is thought less likely although not entirely excluded. No additional evidence of embolus is noted. No acute infiltrate or consolidation. IMPRESSION: No convincing evidence for pulmonary embolus . Diminished attenuation in a proximal segmental right upper lobe branch on the axial sequences only which appears to represent volume averaging. The possibility of pulmonary embolus is thought less likely. TECHNICAL DOCUMENTATION: Quality ID # 436: Final reports with documentation of one or more dose reduction techniques (e.g., Automated exposure control, adjustment of the mA and/or kV according to patient size, use of iterative reconstruction technique) 2010 [employer]- All Rights Reserved
[2017-11-14] MEDS: HYDRALAZINE HCL INJ/PF 20 MG/1 ML SDV IV PRN ×2 (02:02→20:36)
[2017-11-14] MEDS: PROMETHAZINE HCL INJ 25 MG/1 ML VIAL IV PRN ×3 (02:02→16:47)
[2017-11-14] MEDS: MORPHINE SULFATE 10 MG/ML INJ IV SCH ×6 (02:03→23:21)
[2017-11-14] MEDS: NORMAL SALINE 1000 ML 1,000 ML IV PRN ×2 (02:04→11:20)
[2017-11-14] MEDS ORDERED: DILTIAZEM HCL INJ 25 MG/5 ML VIAL IV ONE (03:15)
[2017-11-14] MEDS ORDERED: NITROGLYCERIN 2% OINTMENT 1 GM PACKET TP ONE (04:45)
[2017-11-14] MEDS: MORPHINE SULFATE 10 MG/ML INJ IV PRN ×3 (04:56→20:29)
[2017-11-14 06:49] LABS: HEMATOCRIT 42.7 % (37.9-51.0); HEMOGLOBIN 14.9 g/dL (13.5-17.0); MEAN CORPUSCULAR HEMOGLOBIN 31.3 pg (27.0-33.4); MEAN CORPUSCULAR HGB CONC 34.9 g/dL (32.0-36.0); MEAN CORPUSCULAR VOLUME 90 fl (80-97); PLATELET COUNT 304 10^3/uL (150-450); RED BLOOD COUNT 4.75 10^6/uL (4.35-5.55); RED CELL DISTRIBUTION WIDTH 13.9 % (11.5-14.0); WHITE BLOOD COUNT 20.5 10^3/uL (4.0-10.5)
[2017-11-14 07:13] LABS: ANION GAP 17 (5-19); BLOOD UREA NITROGEN 7 mg/dL (7-20); CARBON DIOXIDE 23 mmol/L (22-30); CHLORIDE 99 mmol/L (98-107); GLUCOSE 91 mg/dL (75-110); SODIUM 138.6 mmol/L (137-145)
[2017-11-14] MEDS ORDERED: CLONIDINE 0.1 MG/24 HR PATCH.TDWK TD SCH (10:00)
[2017-11-14] MEDS: ENOXAPARIN SODIUM INJ 40 MG/0.4 ML DISP.SYRIN SUBCUT SCH (11:08)
[2017-11-14] MEDS: CEFTRIAXONE SODIUM 1,000 MG in NORMAL SALINE 50 ML IV SCH (11:22)
[2017-11-14] MEDS: PANTOPRAZOLE SODIUM 40 MG VIAL IV SCH ×2 (11:25→23:22)
[2017-11-14] MEDS: POTASSI CL 20 MEQ/50 ML RIDER 20 MEQ/50 ML RTUPB IV SCH ×3 (12:50→16:50)
[2017-11-14] MEDS: ONDANSETRON HCL INJ/PF 4 MG/2 ML SDV IV PRN (14:01)
[2017-11-14] MEDS: MAG HYDROX/AL HYDROX/SIMETH SUSP 30 ML UDCUP PO PRN (16:46)
[2017-11-14] MEDS: LIDOCAINE 2% VISCOUS SOLN 20 ML UDCUP PO PRN (16:49)
[2017-11-15] MEDS: MORPHINE SULFATE 10 MG/ML INJ IV SCH ×3 (03:30→10:18)
[2017-11-15] MEDS: MAG HYDROX/AL HYDROX/SIMETH SUSP 30 ML UDCUP PO PRN ×4 (03:31→20:36)
[2017-11-15 07:57] LABS: HEMATOCRIT 44.5 % (37.9-51.0); HEMOGLOBIN 15.3 g/dL (13.5-17.0); MEAN CORPUSCULAR HEMOGLOBIN 30.9 pg (27.0-33.4); MEAN CORPUSCULAR HGB CONC 34.4 g/dL (32.0-36.0); MEAN CORPUSCULAR VOLUME 90 fl (80-97); PLATELET COUNT 265 10^3/uL (150-450); RED BLOOD COUNT 4.95 10^6/uL (4.35-5.55); RED CELL DISTRIBUTION WIDTH 13.4 % (11.5-14.0); WHITE BLOOD COUNT 14.4 10^3/uL (4.0-10.5)
--- NOTE | 2017-11-15 07:58 | PDOC PROGRESS REPORT ---
Subjective Progress Note for:: 11/14/17 Subjective:: The patient is a 56-year-old male with a past medical history significant for hypertension, chronic pain, PUD, tobacco and opiate dependence who was admitted on 11/12/17 for gastritis with intractable nausea and vomiting. The patient was seen this morning on rounds. He is resting comfortably in bed on room air. He endorses a headache but denies chest pain at the time of assessment. Nursing staff reports the patient c/o epigastric pain radiating to the L chest earlier that morning and he was treated with IV morphine. CTA Chest results normal. No evidence of esophageal pathology. Plan to advance diet to clear liquids today. Reason For Visit: GASTROENTERITIS,CHEST PAIN,INTRACTABLE NAUSEA Physical Exam Vital Signs: Temp Pulse Resp BP Pulse Ox 98.5 F 115 H 18 155/111 H 97 11/15/17 03:17 11/15/17 03:17 11/15/17 03:17 11/15/17 03:17 11/15/17 03:17 Intake & Output 11/13/17 11/14/17 11/15/17 06:59 06:59 06:59 Intake Total 1000 1477 Output Total 1400 1600 Balance -400 -123 Weight 67.2 kg 66.4 kg General appearance: PRESENT: no acute distress, well-developed, well-nourished Head exam: PRESENT: atraumatic, normocephalic Eye exam: PRESENT: conjunctiva pink, EOMI, PERRLA. ABSENT: scleral icterus Ear exam: PRESENT: normal external ear exam Mouth exam: PRESENT: moist, tongue midline Neck exam: ABSENT: carotid bruit, JVD, lymphadenopathy, thyromegaly Respiratory exam: PRESENT: clear to auscultation pedro. ABSENT: rales, rhonchi, wheezes Cardiovascular exam: PRESENT: RRR. ABSENT: diastolic murmur, rubs, systolic murmur Pulses: PRESENT: normal dorsalis pedis pul Vascular exam: PRESENT: normal capillary refill GI/Abdominal exam: PRESENT: normal bowel sounds, soft. ABSENT: distended, guarding, mass, organolmegaly, rebound, tenderness Rectal exam: PRESENT: deferred Extremities exam: PRESENT: full ROM. ABSENT: calf tenderness, clubbing, pedal edema Neurological exam: PRESENT: alert, awake, oriented to person, oriented to place , oriented to time, oriented to situation Psychiatric exam: PRESENT: appropriate affect, normal mood Skin exam: PRESENT: dry, intact, warm. ABSENT: cyanosis, rash Results Laboratory Results: 11/14/17 06:30 11/14/17 06:30 11/14/17 11/14/17 06:30 06:30 WBC 20.5 H RBC 4.75 Hgb 14.9 Hct 42.7 MCV 90 MCH 31.3 MCHC 34.9 RDW 13.9 Plt Count 304 Sodium 138.6 Potassium 3.0 L* Chloride 99 Carbon Dioxide 23 Anion Gap 17 BUN 7 Creatinine 0.64 Est GFR ( Amer) > 60 Est GFR (Non-Af Amer) > 60 Glucose 91 Calcium 9.0 11/14/17 11/14/17 11/14/17 07:00 13:05 19:48 Troponin I 0.026 0.016 0.015 Impressions: Abdomen/Pelvis CT 11/12/17 00:00 IMPRESSION: No acute inflammatory changes or evidence for obstruction. Chest X-Ray 11/13/17 06:51 IMPRESSION: Left subclavian central line tip superior vena cava. No pneumothorax Chest/Abdomen CTA 11/14/17 00:00 IMPRESSION: No convincing evidence for pulmonary embolus . Diminished attenuation in a proximal segmental right upper lobe branch on the axial sequences only which appears to represent volume averaging. The possibility of pulmonary embolus is thought less likely. TECHNICAL DOCUMENTATION: Quality ID # 436: Final reports with documentation of one or more dose reduction techniques (e.g., Automated exposure control, adjustment of the mA and/or kV according to patient size, use of iterative reconstruction technique) 2010 [employer]- All Rights Reserved Status: Imported from PACS Assessment & Plan - Diagnosis (1) Acute gastroenteritis Is this a current diagnosis for this admission?: Yes Plan: The patient was admitted for abdominal pain with intractable nausea and vomiting. Chest x-ray and contrasted CT of the abdomen and pelvis were benign. Lipase is normal. He is noted to have leukocytosis. The patient is admitted to the medical floor on continuous cardiac telemetry. He is provided IV fluids. Plan to advance to clear liquid diet today Antiemetics and analgesics as needed. (2) Epigastric pain Is this a current diagnosis for this admission?: Yes Plan: Likely gastritis/esophagitis related to nausea and vomiting. CT of the abdomen and pelvis is benign. CTA of the chest also benign He is placed on Protonix 40 mg IV twice daily. PRN GI cocktail (3) Hypertension Qualifiers: Hypertension type: essential hypertension Qualified Code(s): I10 - Essential (primary) hypertension Is this a current diagnosis for this admission?: Yes Plan: The patient is unable to tolerate p.o. antihypertensives at this time; continues to have nausea and vomiting. Unfortunately, the hospital is on back order for IV labetalol. He is placed on a clonidine patch with IV hydralazine as needed for blood pressure control. (4) Intractable nausea and vomiting Is this a current diagnosis for this admission?: Yes Plan: Secondary to gastroenteritis and likely opiate withdrawal secondary to inability to tolerate p.o. medications for the last 3-4 days. He is placed on scheduled and as needed IV morphine. Antiemetics as needed. (5) DVT prophylaxis Is this a current diagnosis for this admission?: Yes Plan: SC Lovenox. (6) Leukocytosis Is this a current diagnosis for this admission?: Yes Plan: Elevated to 20. Afebrile Urinalysis is negative for UTI. Chest x-ray is benign. Blood cultures are pending. Stool studies pending. He was empirically placed on Rocephin, will adjust as cultures result or more definitive evidence of infection presents itself. (7) Chronic back pain Is this a current diagnosis for this admission?: Yes Plan: The patient has chronic pain treated as an outpatient with MS Contin 30 mg twice daily with morphine IR 15 mg daily as needed. While n.p.o. and actively vomiting, the patient is provided scheduled morphine 4 mg IV q6 hours to prevent opiate withdrawal with 2 mg every 2 hours as needed for breakthrough pain. - Time Time Spent with patient: 15-24 minutes Medications reviewed and adjusted accordingly: Yes Anticipated discharge: Home Within: within 48 hours - Inpatient Certification Based on my medical assessment, after consideration of the patient's comorbidities, presenting symptoms, or acuity I expect that the services needed warrant INPATIENT care.: Yes I certify that my determination is in accordance with my understanding of Medicare's requirements for reasonable and necessary INPATIENT services [42 CFR 412.3e].: Yes Medical Necessity: Risk of Complication if Not Cared For in Hospital - Plan Summary Plan Summary: INITIATE CLEAR LIQUID DIET
[2017-11-15] MEDS: MORPHINE SULFATE 10 MG/ML INJ IV PRN (08:08)
[2017-11-15] MEDS: ONDANSETRON HCL INJ/PF 4 MG/2 ML SDV IV PRN (08:09)
[2017-11-15 08:20] LABS: ANION GAP 16 (5-19); BLOOD UREA NITROGEN 9 mg/dL (7-20); CALCIUM 9.1 mg/dL (8.4-10.2); CARBON DIOXIDE 22 mmol/L (22-30); CHLORIDE 99 mmol/L (98-107); GLUCOSE 81 mg/dL (75-110); PHOSPHORUS 2.4 mg/dL (2.5-4.5); POTASSIUM 3.3 mmol/L (3.6-5.0); SODIUM 136.8 mmol/L (137-145)
[2017-11-15] MEDS: ENOXAPARIN SODIUM INJ 40 MG/0.4 ML DISP.SYRIN SUBCUT SCH (10:18)
[2017-11-15] MEDS: PANTOPRAZOLE SODIUM 40 MG VIAL IV SCH (10:18)
[2017-11-15] MEDS: HYDRALAZINE HCL INJ/PF 20 MG/1 ML SDV IV PRN ×2 (10:18→15:54)
[2017-11-15] MEDS: CEFTRIAXONE SODIUM 1,000 MG in NORMAL SALINE 50 ML IV SCH (10:19)
[2017-11-15] MEDS: POTASSI CL 20 MEQ/50 ML RIDER 20 MEQ/50 ML RTUPB IV SCH ×2 (11:17→13:19)
[2017-11-15] MEDS: LIDOCAINE 2% VISCOUS SOLN 20 ML UDCUP PO PRN (13:59)
[2017-11-15] MEDS: PROMETHAZINE HCL INJ 25 MG/1 ML VIAL IV PRN ×2 (13:59→20:19)
[2017-11-15] MEDS: NORMAL SALINE 1000 ML 1,000 ML IV PRN (14:32)
[2017-11-15] MEDS ORDERED: PROMETHAZINE HCL INJ 25 MG/1 ML VIAL IV ONE (15:30)
[2017-11-15] MEDS ORDERED: MORPHINE SULFATE 10 MG/ML INJ IV PRN (16:16)
--- NOTE | 2017-11-15 16:37 | PDOC PROGRESS REPORT ---
Subjective Progress Note for:: 11/15/17 Subjective:: The patient is a 56-year-old male with a past medical history significant for hypertension, chronic pain, PUD, tobacco and opiate dependence who was admitted on 11/12/17 for gastritis with intractable nausea and vomiting. The patient was seen this morning on rounds. He is resting comfortably in bed on room air. Nursing staff reports the patient c/o epigastric pain that morning and he was treated with IV morphine. The patient was able to tolerate his clear liquid diet, he was advanced to a regular diet today but unfortunately, he vomited shortly after eating lunch. Additionally, the patient complained of burning epigastric pain. Plan to scale back diet to clear liquids, continue PPI. May need to consider EGD. Reason For Visit: GASTROENTERITIS,CHEST PAIN,INTRACTABLE NAUSEA Physical Exam Vital Signs: Temp Pulse Resp BP Pulse Ox 99.0 F 116 H 21 H 183/105 H 98 11/15/17 15:27 11/15/17 15:27 11/15/17 15:27 11/15/17 15:27 11/15/17 15:27 Intake & Output 11/14/17 11/15/17 11/16/17 06:59 06:59 06:59 Intake Total 1000 2477 100 Output Total 1400 1600 Balance -400 877 100 Weight 67.2 kg 66.4 kg General appearance: PRESENT: no acute distress, well-developed, well-nourished Head exam: PRESENT: atraumatic, normocephalic Eye exam: PRESENT: conjunctiva pink, EOMI, PERRLA. ABSENT: scleral icterus Ear exam: PRESENT: normal external ear exam Mouth exam: PRESENT: moist, tongue midline Neck exam: ABSENT: carotid bruit, JVD, lymphadenopathy, thyromegaly Respiratory exam: PRESENT: clear to auscultation pedro. ABSENT: rales, rhonchi, wheezes Cardiovascular exam: PRESENT: RRR, +S1, +S2. ABSENT: diastolic murmur, rubs, systolic murmur Pulses: PRESENT: normal dorsalis pedis pul Vascular exam: PRESENT: normal capillary refill GI/Abdominal exam: PRESENT: normal bowel sounds, soft, tenderness - EPIGASTRIC. ABSENT: distended, guarding, mass, organolmegaly, rebound Rectal exam: PRESENT: deferred Extremities exam: PRESENT: full ROM. ABSENT: calf tenderness, clubbing, pedal edema Neurological exam: PRESENT: alert, awake, oriented to person, oriented to place , oriented to time, oriented to situation Psychiatric exam: PRESENT: appropriate affect, normal mood Skin exam: PRESENT: dry, intact, warm. ABSENT: cyanosis, rash Results Laboratory Results: 11/15/17 07:30 11/15/17 07:30 11/15/17 11/15/17 07:30 07:30 WBC 14.4 H RBC 4.95 Hgb 15.3 Hct 44.5 MCV 90 MCH 30.9 MCHC 34.4 RDW 13.4 Plt Count 265 Sodium 136.8 L Potassium 3.3 L Chloride 99 Carbon Dioxide 22 Anion Gap 16 BUN 9 Creatinine 0.64 Est GFR ( Amer) > 60 Est GFR (Non-Af Amer) > 60 Glucose 81 Calcium 9.1 Phosphorus 2.4 L Magnesium 2.2 11/14/17 11/14/17 11/14/17 07:00 13:05 19:48 Troponin I 0.026 0.016 0.015 Impressions: Abdomen/Pelvis CT 11/12/17 00:00 IMPRESSION: No acute inflammatory changes or evidence for obstruction. Chest X-Ray 11/13/17 06:51 IMPRESSION: Left subclavian central line tip superior vena cava. No pneumothorax Chest/Abdomen CTA 11/14/17 00:00 IMPRESSION: No convincing evidence for pulmonary embolus . Diminished attenuation in a proximal segmental right upper lobe branch on the axial sequences only which appears to represent volume averaging. The possibility of pulmonary embolus is thought less likely. TECHNICAL DOCUMENTATION: Quality ID # 436: Final reports with documentation of one or more dose reduction techniques (e.g., Automated exposure control, adjustment of the mA and/or kV according to patient size, use of iterative reconstruction technique) 2010 [employer]- All Rights Reserved Status: Imported from PACS Assessment & Plan - Diagnosis (1) Acute gastroenteritis Is this a current diagnosis for this admission?: Yes Plan: The patient was admitted for abdominal pain with intractable nausea and vomiting. Chest x-ray and contrasted CT of the abdomen and pelvis were benign. Lipase is normal. He is noted to have leukocytosis. The patient is admitted to the medical floor on continuous cardiac telemetry. He is provided IV fluids. Clear liquid diet Antiemetics and analgesics as needed. (2) Epigastric pain Is this a current diagnosis for this admission?: Yes Plan: Likely gastritis/esophagitis related to nausea and vomiting. CT of the abdomen and pelvis is benign. CTA of the chest also benign He is placed on Protonix 40 mg IV twice daily. PRN GI cocktail Zofran and phenergan PRN for nausea Plan to consult surgery for EGD (3) Hypertension Qualifiers: Hypertension type: essential hypertension Qualified Code(s): I10 - Essential (primary) hypertension Is this a current diagnosis for this admission?: Yes Plan: Resumed home PO anti-hypertensives (4) Intractable nausea and vomiting Is this a current diagnosis for this admission?: Yes Plan: Secondary to gastroenteritis and possibly opiate withdrawal due to inability to tolerate PO diet for 3-4 days He is placed on scheduled PO morphine and as needed IV morphine. Antiemetics as needed. (5) DVT prophylaxis Is this a current diagnosis for this admission?: Yes Plan: SC Lovenox. (6) Leukocytosis Is this a current diagnosis for this admission?: Yes Plan: Improving from 20->14.4. Afebrile Urinalysis is negative for UTI. Chest x-ray is benign. Blood cultures are no growth at 48 hrs. Stool studies pending. He was empirically placed on Rocephin, will adjust as cultures result or more definitive evidence of infection presents itself. (7) Chronic back pain Is this a current diagnosis for this admission?: Yes Plan: The patient has chronic pain treated as an outpatient with MS Contin 30 mg twice daily with morphine IR 15 mg daily as needed. Patient placed back on MS Contin 30mg BID. Morphine 4mg IV ordered PRN for breakthrough pain - Time Time Spent with patient: 15-24 minutes Medications reviewed and adjusted accordingly: Yes Anticipated discharge: Home - Inpatient Certification Based on my medical assessment, after consideration of the patient's comorbidities, presenting symptoms, or acuity I expect that the services needed warrant INPATIENT care.: Yes I certify that my determination is in accordance with my understanding of Medicare's requirements for reasonable and necessary INPATIENT services [42 CFR 412.3e].: Yes Medical Necessity: Risk of Complication if Not Cared For in Hospital - Plan Summary Plan Summary: D/C REGULAR DIET, PLACE BACK ON CLEAR LIQUID DIET. CONSULT SURGERY FOR EGD
[2017-11-15] MEDS: MORPHINE SULFATE SR 30 MG TABLET PO SCH (17:54)
[2017-11-15] MEDS: LANSOPRAZOLE 30 MG TAB.RAP.DR PO SCH (17:54)
[2017-11-15] MEDS ORDERED: PROCHLORPERAZINE EDISYLATE INJ 10 MG/2 ML VIAL IV ONE (18:00)
[2017-11-15] MEDS ORDERED: DILTIAZEM HCL INJ 25 MG/5 ML VIAL ONE (21:13)
[2017-11-15] MEDS ORDERED: ATORVASTATIN CALCIUM 10 MG TABLET PO SCH (22:00)
[2017-11-15] MEDS ORDERED: (PENDING PHARMACY ID) (Clonidine Hcl [Catapres 0.3 Mg Tablet] 0.3 MG) PO SCH (22:00)
[2017-11-15] MEDS ORDERED: HYDROMORPHONE HCL INJ/PF 2 MG/ML AMPULE IV ONE (22:45)
[2017-11-15] MEDS: CLONIDINE HCL 0.2 MG TABLET PO SCH (22:50)
[2017-11-16] MEDS: LANSOPRAZOLE 30 MG TAB.RAP.DR PO SCH (05:32)
[2017-11-16] MEDS: MORPHINE SULFATE SR 30 MG TABLET PO SCH (05:32)
[2017-11-16 08:43] LABS: HEMATOCRIT 39.1 % (37.9-51.0); HEMOGLOBIN 13.6 g/dL (13.5-17.0); MEAN CORPUSCULAR HEMOGLOBIN 31.3 pg (27.0-33.4); MEAN CORPUSCULAR HGB CONC 34.7 g/dL (32.0-36.0); MEAN CORPUSCULAR VOLUME 90 fl (80-97); PLATELET COUNT 215 10^3/uL (150-450); RED BLOOD COUNT 4.33 10^6/uL (4.35-5.55); RED CELL DISTRIBUTION WIDTH 14.1 % (11.5-14.0); WHITE BLOOD COUNT 9.9 10^3/uL (4.0-10.5)
[2017-11-16 09:01] LABS: ALANINE AMINOTRANSFERASE 47 U/L (21-72); ALBUMIN 2.9 g/dL (3.5-5.0); ALKALINE PHOSPHATASE 67 U/L (38-126); ANION GAP 8 (5-19); ASPARTATE AMINO TRANSFERASE 27 U/L (17-59); BILIRUBIN,DIRECT 0.3 mg/dL (0.0-0.4); BILIRUBIN,TOTAL 1.1 mg/dL (0.2-1.3); BLOOD UREA NITROGEN 9 mg/dL (7-20); CARBON DIOXIDE 25 mmol/L (22-30); CHLORIDE 104 mmol/L (98-107); GLUCOSE 85 mg/dL (75-110); POTASSIUM 3.2 mmol/L (3.6-5.0); SODIUM 136.9 mmol/L (137-145); TOTAL PROTEIN 5.5 g/dL (6.3-8.2)
[2017-11-16] MEDS ORDERED: MAGNESIUM SULFATE/D5W 1 GM/100 ML RTUPB IV ONE (10:00)
[2017-11-16] MEDS ORDERED: (PENDING PHARMACY ID) (Lisinopril/Hydrochlorothiazide [Lisinopril-Hctz 20-25 Mg Tab] 1 EAC PO SCH (10:00)
[2017-11-16] MEDS ORDERED: HYDROCHLOROTHIAZIDE 25 MG TABLET PO SCH (10:00)
[2017-11-16] MEDS ORDERED: LISINOPRIL 10 MG TABLET PO SCH (10:00)
[2017-11-16] MEDS: CLONIDINE HCL 0.2 MG TABLET PO SCH (10:13)
[2017-11-16] MEDS: ENOXAPARIN SODIUM INJ 40 MG/0.4 ML DISP.SYRIN SUBCUT SCH (10:19)
[2017-11-16] MEDS ORDERED: POTASSI CL 20 MEQ/50 ML RIDER 20 MEQ/50 ML RTUPB IV SCH (10:30)
[2017-11-16] MEDS: CEFTRIAXONE SODIUM 1,000 MG in NORMAL SALINE 50 ML IV SCH (11:40)
[2017-11-16] MEDS ORDERED: POTASSIUM CHLORIDE 10 MEQ CAPSULE.ER PO ONE (12:00)
[2017-11-16 12:08] VITALS: BP 115/89
--- NOTE | 2017-11-20 08:27 | PDOC DISCHARGE SUMMARY ---
General - Admit/Disc Date/PCP Admission Date/Primary Care Provider: 11/13/17 18:52 TRUDY DAIGLE MD Discharge Date: 11/16/17 - Discharge Diagnosis (1) Acute gastroenteritis Is this a current diagnosis for this admission?: Yes Summary: The patient was admitted for abdominal pain with intractable nausea and vomiting. Patient states he has been experiencing these symptoms on and off for the last 3 months. He states that he had a similar constellation of symptoms approximately 10 years ago (APR 2017) and was evaluated by Dr. Pedro as an outpatient. At that time, he had an EGD which only revealed gastritis. Laboratory testing confirmed the diagnosis of H pylori and the patient was treated with antibiotics for approximately 1 month. Follow-up breath test was negative. The patient has not been seen by Dr. Pedro since then. Chest x-ray and contrasted CT of the abdomen and pelvis were negative for any abnormal pathology. Lipase was normal. The patient was admitted to the medical floor on continuous cardiac telemetry. He was initially n.p.o. but was able to advance to a full liquid diet. He was given a daily PPI, which was continued post-discharge (2) Epigastric pain Is this a current diagnosis for this admission?: Yes Summary: Treated with IV narcotic pain medication and PRN maalox/viscous lidocaine (3) Hypertension Is this a current diagnosis for this admission?: Yes Summary: The patient reported a history of hypertension, which was treated with his home dose medication. The patient remained normotensive while at [facility]. (4) Intractable nausea and vomiting Is this a current diagnosis for this admission?: Yes Summary: The patient initially presented with intractable nausea and vomiting. He was treated with IV Phenergan, as needed Zofran and IV Protonix. His symptoms subsided while in the emergency department. Attempted to advance to regular diet on day 2 of admission, but the patient experienced nausea and vomiting within 1 hour of eating. He reports that he likely consumed his food too quickly because he was so hungry. By day 3 of admission, the patient was able to tolerate a full liquid diet and bland solid food (toast and crackers) (5) DVT prophylaxis Is this a current diagnosis for this admission?: Yes (6) Leukocytosis Is this a current diagnosis for this admission?: Yes (7) Chronic back pain Is this a current diagnosis for this admission?: Yes (8) Tobacco abuse Is this a current diagnosis for this admission?: Yes Summary: Daily smoking cessation counseling Patient offered nicotine patch, states he is ready to quit smoking Sent home with prescription for nicotine patch - Additional Information Discharge Diet: Other (Comments) - LOW FAT. NO SPICY FOODS. Discharge Activity: Activity As Tolerated Prescriptions: Nicotine [Nicoderm 21 mg/24 Hr Transderm Patch] 1 each TD DAILYP PRN #30 patch.td24 PRN Reason: Ondansetron [Zofran Odt 4 mg Tablet] 4 mg PO Q4HP PRN #20 tab.rapdis PRN Reason: Pantoprazole Sodium [Protonix] 40 mg PO BID 14 Days #28 tablet. Home Medications: Atorvastatin Calcium [Lipitor 10 mg Tablet] 10 mg PO QHS 11/13/17 Clonidine HCl [Catapres 0.3 mg Tablet] 0.3 mg PO Q12 11/13/17 Cyclobenzaprine HCl [Flexeril 10 mg Tablet] 10 mg PO QHS 11/13/17 Gabapentin [Neurontin] 800 mg PO BID 11/13/17 Lisinopril/Hydrochlorothiazide [Lisinopril-Hctz 20-25 mg Tab] 1 each PO DAILY Morphine Sulfate [Morphine Ir 15 mg Tablet] 15 mg PO DAILYP PRN 11/13/17 Morphine Sulfate [Morphine Sulfate ER] 30 mg PO Q12A 11/13/17 Nicotine [Nicoderm 21 mg/24 Hr Transderm Patch] 1 each TD DAILYP PRN #30 patch.td24 11/16/17 Ondansetron [Zofran Odt 4 mg Tablet] 4 mg PO Q4HP PRN #20 tab.rapdis 11/16/17 Pantoprazole Sodium [Protonix] 40 mg PO BID 14 Days #28 tablet. 11/16/17 History of Present Illness History of Present Illness: LIZ PAGE JR is a 56 year old male with history of multiple medical problems that will be mentioned below who presented to the emergency room with acute onset of epigastric abdominal pain over the last couple of days with associated intractable nausea and vomiting today. He has been having low- grade fever and stated that at home he has been feeling cold and hot. He has noted occasional bright red blood in his stools but denies any melena. He has a history of peptic ulcer disease. He denied any hematuria or other bleeding diathesis. He admits to occasional dysuria with slightly diminished urine output. No chest pain or palpitations. No cough or wheezing or hemoptysis. When he came to the emergency room, his blood pressure was elevated 166/101 with a pulse of 77 respiratory rate of 18 temperature 98.9 and pulse oximetry 99 % on room air. His labs revealed significant leukocytosis of 19.1 with neutrophilia with hemoglobin of 15.8 hematocrit 45.1 and platelets 367. His sodium was 145.3 and potassium 3.4, chloride 94, CO2 33, BUN 15, creatinine 0.81 glucose 118. Initial lactic acid was 3.2 and later on came down to 1.3. Initial set of cardi. Stool Hemoccult came back negative. Cardiac enzymes came back negative with troponin I of 0.015 and CK of 49. The urinalysis came back with 30 protein and trace bacteria was 2 WBCs. The patient was given hydration with IV normal saline as well as 25 mg of IM Phenergan, 4 mg of IV morphine sulfate and 1 mg of IV Dilaudid and later on a total of 1-1/2 mg in addition to 30 mg of IV Toradol and 4 mg of IV Zofran. His abdominal pelvic CT scan revealed no acute abnormalities except for 3.2 cm abdominal aortic aneurysm. The patient believes that he could have been told that he had such aneurysm in the past. He will be admitted to a telemetry bed for further evaluation and management. Hospital Course Hospital Course: 56 y.o. M admitted to [facility] for chest pain and gastroenteritis. Detailed account listed above. On hospital day #3 the patient reported feeling much better. He was able to tolerate solid food the patient requested to be discharged home. He was deemed safe for discharge, instructed to follow-up closely with Dr. Pedro. The patient was sent home with prescriptions for Zofran, Protonix, and a nicotine patch. Extensive smoking cessation counseling was given to the patient each day while he was at [facility] and again during discharge teaching. Patient stated full understanding of his discharge instructions. For further information regarding the patient's hospitalization, please refer to the EMR. Physical Exam Vital Signs: Temp Pulse Resp BP Pulse Ox 98.3 F 82 16 186/109 H 95 11/16/17 11:52 11/16/17 11:52 11/16/17 11:52 11/16/17 11:52 11/16/17 11:52 Results Laboratory Results: 11/16/17 08:32 11/16/17 08:32 11/14/17 11/14/17 11/14/17 07:00 13:05 19:48 Troponin I 0.026 0.016 0.015 Impressions: Abdomen/Pelvis CT 11/12/17 00:00 IMPRESSION: No acute inflammatory changes or evidence for obstruction. Chest X-Ray 11/13/17 06:51 IMPRESSION: Left subclavian central line tip superior vena cava. No pneumothorax Chest/Abdomen CTA 11/14/17 00:00 IMPRESSION: No convincing evidence for pulmonary embolus . Diminished attenuation in a proximal segmental right upper lobe branch on the axial sequences only which appears to represent volume averaging. The possibility of pulmonary embolus is thought less likely. TECHNICAL DOCUMENTATION: Quality ID # 436: Final reports with documentation of one or more dose reduction techniques (e.g., Automated exposure control, adjustment of the mA and/or kV according to patient size, use of iterative reconstruction technique) 2010 [employer]- All Rights Reserved Qualifiers - * PATIENT BEING DISCHARGED WITH ANY OF THE FOLLOWING DIAGNOSIS: No Plan Time Spent: Greater than 30 Minutes
== END 2017-11-16 13:00 | disposition home or self-care (01) | DRG 392 ==
LOC: ER 15:13 → EH 23:01 → 4N 11-13 00:25 → OBSVTOIN 11-13 18:52
PROVIDERS: ADMIT Family Medicine; ATTEND Family Medicine
PROC: 02HV33Z Insertion of Infusion Device into Superior Vena Cava, Percutaneous Approach (ICD-10-PCS; principal; 2017-11-13)
DX: K52.9 Noninfective gastroenteritis and colitis, unspecified (principal); F11.20 Opioid dependence, uncomplicated; I10 Essential (primary) hypertension; G89.29 Other chronic pain; M54.9 Dorsalgia, unspecified; I71.4 Abdominal aortic aneurysm, without rupture; F17.210 Nicotine dependence, cigarettes, uncomplicated; Z79.899 Other long term (current) drug therapy; Z87.11 Personal history of peptic ulcer disease; Z90.49 Acquired absence of other specified parts of digestive tract; Z83.3 Family history of diabetes mellitus; Z82.49 Family history of ischemic heart disease and other diseases of the circulatory system
CPT/HCPCS: 36415; 51702; 71045; 71275; 74177; 80048; 80053; 80307; 81001; 82272; 82550; 82553; 82803; 83605; 83690; 83735; 84100; 84484; 85025; 85027; 86850; 86900; 86901; 87040; 87045; 87205; 87493; 89055; 93005; 93010; 96361; 96372; 96374; 96375; 96376; 99285; C1751; G0378; J0360; J0696; J0780; J1170; J1650; J1885; J2060; J2270; J2405; J2550; J3475; J3480; J3490; J7030; S0119; S0164

== ENCOUNTER → 2018-11-01 | Outpatient (CLI) | payer MEDICARE | LOC: OD 07:31 | PROVIDERS: ATTEND Physician Assistant | DX: Z79.891 Long term (current) use of opiate analgesic (principal) | CPT/HCPCS: 36415; G0480; 80361 ==

== ENCOUNTER → 2019-02-13 | Outpatient (CLI) | payer MEDICARE ==
[2019-02-13 08:29] LABS: URINE AMPHETAMINES SCREEN NEGATIVE; URINE BARBITURATES SCREEN NEGATIVE; URINE BENZODIAZEPINES SCREEN NEGATIVE; URINE COCAINE SCREEN NEGATIVE; URINE MARIJUANA (THC) SCREEN NEGATIVE; URINE METHADONE SCREEN NEGATIVE; URINE PHENCYCLIDINE SCREEN NEGATIVE
== END ==
LOC: OD 07:29
PROVIDERS: ATTEND Physician Assistant
DX: Z79.891 Long term (current) use of opiate analgesic (principal)
CPT/HCPCS: 36415; 80307; G0480; 80361

== ENCOUNTER 2019-05-26 19:52 | Inpatient (IN) | payer MEDICARE ==
[2019-05-26] MEDS ORDERED: FENTANYL CITRATE INJ/PF 100 MCG/2 ML AMPUL IV ONE ×2 (20:38→22:14)
[2019-05-26] MEDS ORDERED: ONDANSETRON HCL INJ/PF 4 MG/2 ML SDV IV ONE (20:38)
[2019-05-26] MEDS ORDERED: FAMOTIDINE INJ/PF 20 MG/2 ML SDV IV ONE (20:39)
--- NOTE | 2019-05-26 20:45 | ER Document Report ---
ED General - General Chief Complaint: Abdominal Pain Stated Complaint: ABDOMINAL PAIN Time Seen by Provider: 05/26/19 20:14 TRAVEL OUTSIDE OF THE [place] IN LAST 30 DAYS: No - HPI Notes: Mr. Mora is a 58-year-old male with a chief complaint of epigastric pain and vomiting. This gentleman is followed with Dr. Aba Montague. He has a past history of peptic ulcer disease but is not currently on any treatment for this. He denies hematemesis, melena or hematochezia. His weight is stable. He smokes 1-1/2 packs of cigarettes per day. He denies alcohol consumption. He also notes that he has a prior history of a 3.5 cm abdominal aortic aneurysm which they have been "following". He has had a previous cholecystectomy. Patient says he has had multiple prior episodes of epigastric burning and vomiting and usually takes oral antacids at home with relief but this was more severe tonight. - Related Data Allergies/Adverse Reactions: No Known Allergies Allergy (Verified 11/13/17 09:21) Home Medications: Clonidine 0.3mg x2 Daily Past Medical History - General Information source: Patient, Relative - Social History Smoking Status: Current Every Day Smoker Frequency of alcohol use: None Drug Abuse: None Family History: CAD, DM Patient has suicidal ideation: No Patient has homicidal ideation: No - Past Medical History Cardiac Medical History: Reports: Hx Hypertension Renal/ Medical History: Denies: Hx Peritoneal Dialysis Psychiatric Medical History: Denies: Hx Depression Past Surgical History: Reports: Hx Cholecystectomy Review of Systems - Review of Systems Notes: Constitutional: Negative for fever. HENT: Negative for sore throat. Eyes: Negative for visual changes. Cardiovascular: Negative for chest pain. Respiratory: Negative for shortness of breath. Gastrointestinal: As per HPI. Genitourinary: Negative for dysuria. Musculoskeletal: Negative for back pain. Skin: Negative for rash. Neurological: Negative for headaches, weakness or numbness. 10 point ROS negative except as marked above and in HPI. Physical Exam - Vital signs Vitals: Resp Pulse Ox 18 94 05/26/19 19:59 05/26/19 19:59 - Notes Notes: GENERAL: Well-developed well-nourished appearing in moderate pain. SKIN: Good turgor no rashes. HEAD: Normocephalic atraumatic. EYES: PERRLA. EOMI. Conjunctivae and sclerae clear. EARS: CANALS AND TMS CLEAR. NOSE: CLEAR. MOUTH: Moist mucosa. Very poor dentition. No stridor or edema. No drooling. NECK: Supple. No masses or thyromegaly. No adenopathy. Carotids 2+ without bruits. No JVD. BACK: Symmetrical without tenderness. CHEST: Respirations unlabored. Scattered rhonchi and faint wheezes bilaterally. HEART: Regular rhythm. No murmur gallop or rub. ABDOMEN: Mild epigastric tenderness. No palpable masses or abnormal pulsations. Soft without masses, organomegaly or rebound. Bowel sounds normally active. No bruits. GENITALIA: Deferred. EXTREMITIES: No edema. No calf tenderness. Cap refill less than 1.5 seconds. Dorsalis pedis and posterior tibial pulses 3+ and symmetrical. NEUROLOGICAL: GCS 15. Alert and oriented x3. Fluent speech. Cranial nerves II through XII intact. Sensorimotor and cerebellar normal. Normal tone. PSYCHIATRIC: Appropriate affect. Course - Re-evaluation Re-evalutation: 05/26/19 20:45 Patient will remain n.p.o. and receive normal saline and IV medications to include fentanyl, Zofran and Pepcid. CT abdomen/pelvis with IV and oral contrast requested. Pending labs include blood alcohol, urine drug screen, urinalysis, comprehensive metabolic profile, CBC and serum lipase. I have also requested EKG and troponin. We are going to x-ray the chest because the wheezes and given nebulizer treatment. 05/26/19 20:45 05/27/19 03:01 This man had relatively intractable nausea and vomiting and was given multiple antiemetics. He was initially given some IV Pepcid and subsequently some IV Protonix. His EKG did not show any acute ST changes and his discomfort was all burning epigastric area with associated tenderness. Initially patient had denied taking narcotic medications at home but subsequently informed me that he had been on Percocet long-term for low back pain but because of his vomiting and gastritis symptoms have not been able to take this for several days. We note that his symptoms really did not get much better when he received IV fentanyl. We did subsequently give him 1 dose of Dilaudid and this relieved his discomfort. His blood pressure spiked several times while he was in the department. We gave him 1 dose of hydralazine. He had a CT of abdomen and pelvis with IV contrast. We were not able to get him to keep oral contrast down. We placed an NG tube for him to try to give contrast through the NG. He had return of bile from the tube. He immediately jerked this out however and said he could not tolerate this. Went back and read his records from a prior hospitalization here about 3 years ago and a clinical presentation is almost identical. He apparently was seen by GI at that time and underwent an EGD with findings positive for a gastritis and studies indicating the presence of Helicobacter pylori. The patient had done the same thing several years prior to this as well. Each time after he was treated for H. pylori his symptoms improved for an extended period of time. Case was discussed with on-call hospitalist, Dr. Fran Norman who has agreed to admit to telemetry at this time. We do not have GI circulation worker but the surgical is here can be consulted for EGD and I think this will be planned for this gentleman. - Vital Signs Vital signs: Temp Pulse Resp BP Pulse Ox 98.7 F 19 167/85 H 97 05/27/19 00:31 05/27/19 02:46 05/27/19 02:46 05/27/19 01:46 - Laboratory Result Diagrams: 05/26/19 20:12 05/26/19 21:10 Laboratory results interpreted by me: 05/26/19 05/26/19 05/27/19 20:12 21:10 00:34 WBC 15.8 H RDW 14.2 H Seg Neuts % (Manual) 92 H Band Neutrophils % 1 L Lymphocytes % (Manual) 4 L Abs Neuts (Manual) 14.7 H Chloride 97 L Carbon Dioxide 31 H Glucose 128 H Calcium 10.6 H Total Protein 8.4 H Urine Protein 30 H Urine Ketones 20 H - EKG Interpretation by Me Additional EKG results interpreted by me: 05/26/19 20:47 Twelve-lead EKG from 2013 hrs. is reviewed contemporaneously by me demonstrating sinus tachycardia rate 106 left atrial abnormality normal QRS axis of 47 degrees [address] no acute ST or T wave changes. Discharge - Discharge Clinical Impression: Abdominal pain Qualifiers: Abdominal location: epigastric Qualified Code(s): R10.13 - Epigastric pain Vomiting Qualifiers: Vomiting type: unspecified Vomiting Intractability: intractable Nausea presence: with nausea Qualified Code(s): R11.2 - Nausea with vomiting, unspecified Condition: Fair Disposition: ADMITTED INPATIENT Admitting Provider: Emerson (Hospitalist) Unit Admitted: Telemetry
[2019-05-26 20:59] LABS: HEMATOCRIT 48.6 % (37.9-51.0); HEMOGLOBIN 16.5 g/dL (13.5-17.0); MEAN CORPUSCULAR HEMOGLOBIN 30.2 pg (27.0-33.4); MEAN CORPUSCULAR VOLUME 89 fl (80-97); PLATELET COUNT 343 10^3/uL (150-450); RED BLOOD COUNT 5.48 10^6/uL (4.35-5.55); RED CELL DISTRIBUTION WIDTH 14.2 % (11.5-14.0); WHITE BLOOD COUNT 15.8 10^3/uL (4.0-10.5)
--- NOTE | 2019-05-26 21:12 | RADIOLOGY REPORT (SQ) ---
EXAM DESCRIPTION: [facility]: XR CHEST 1 VIEW CLINICAL HISTORY: 58 years Male; epigastric pain; COMPARISON: 11/13/2017 FINDINGS: Lungs are clear, with no focal infiltrate, pneumothorax, or pleural effusion. Mediastinum is within normal limits for this positioning. Bony structures are unremarkable. IMPRESSION: 1. No acute pulmonary findings.
--- NOTE | 2019-05-26 21:15 | EKG REPORT ---
SEVERITY:- BORDERLINE ECG - SINUS TACHYCARDIA PROBABLE LEFT ATRIAL ABNORMALITY : Confirmed by: Fausto Guerra MD 26-May-2019 21:14:21
[2019-05-26 21:21] LABS: ABSOLUTE LYMPHOCYTES# (MANUAL) 0.6 10^3/uL (0.5-4.7); ABSOLUTE MONOCYTES # (MANUAL) 0.5 10^3/uL (0.1-1.4); BAND NEUTROPHILS % (MANUAL) 1 % (3-5); BASOPHILS % (MANUAL) 0 % (0-2); EOSINOPHILS % (MANUAL) 0 % (0-6); LYMPHOCYTES % (MANUAL) 4 % (13-45); MONOCYTES % (MANUAL) 3 % (3-13); SEGMENTED NEUTROPHILS % (MAN) 92 % (42-78); TOTAL CELLS COUNTED 100
[2019-05-26 21:22] LABS: ANISOCYTOSIS SLIGHT; PLATELET COMMENT ADEQUATE
[2019-05-26 21:42] LABS: ALBUMIN 4.8 g/dL (3.5-5.0); ALKALINE PHOSPHATASE 118 U/L (38-126); ANION GAP 12 (5-19); ASPARTATE AMINO TRANSFERASE 24 U/L (17-59); BILIRUBIN,DIRECT 0.3 mg/dL (0.0-0.4); BILIRUBIN,TOTAL 0.9 mg/dL (0.2-1.3); BLOOD UREA NITROGEN 10 mg/dL (7-20); CALCIUM 10.6 mg/dL (8.4-10.2); CARBON DIOXIDE 31 mmol/L (22-30); CHLORIDE 97 mmol/L (98-107); GLUCOSE 128 mg/dL (75-110); POTASSIUM 3.7 mmol/L (3.6-5.0); TOTAL PROTEIN 8.4 g/dL (6.3-8.2)
[2019-05-26 21:43] LABS: ALCOHOL < 10 mg/dL (NONE DETECTED)
[2019-05-26] MEDS ORDERED: NORMAL SALINE 1000 ML 1,000 ML IV ONE (22:16)
[2019-05-26] MEDS ORDERED: METOCLOPRAMIDE HCL INJ/PF 10 MG/2 ML SDV ONE (22:24)
[2019-05-26] MEDS ORDERED: METOCLOPRAMIDE HCL INJ/PF 10 MG/2 ML SDV IV ONE (22:25)
[2019-05-26] MEDS ORDERED: PROCHLORPERAZINE EDISYLATE INJ 10 MG/2 ML VIAL IV ONE (22:53)
[2019-05-26] MEDS ORDERED: LIDOCAINE 2% JELLY 5 ML TUBE NASL ONE (23:07)
--- NOTE | 2019-05-27 00:19 | RADIOLOGY REPORT (SQ) ---
CT ABDOMEN PELVIS WITH IV CONTRAST EXAM DATE: 05/26/2019 12:00 AM [employer] HISTORY: Epigastric pain. COMPARISON: 11/12/2017 TECHNIQUE: CT scan of the abdomen and pelvis was performed with IV contrast. This exam was performed according to our departmental dose-optimization program, which includes automated exposure control, adjustment of the mA and/or kV according to patient size and/or use of iterative reconstruction technique. FINDINGS: The lung bases are clear. No pleural or pericardial effusions. There has been a prior cholecystectomy. Liver, spleen, pancreas, adrenal glands, left kidney, and pelvic organs are unremarkable. There is nonspecific calcification in the lower pole right kidney. No hydronephrosis. Mild wall thickening of the descending and sigmoid colon. The appendix is normal. There are a few terminal ileal bowel loops with mild wall thickening. No free fluid, free air, or abscess is seen. The aorta contains diffuse atherosclerotic calcifications and intraluminal fibrofatty plaque with a maximum diameter of 3.2 cm. The IVC is grossly unremarkable. No acute bony findings are seen. No abnormal body wall hernia. IMPRESSION: Findings which may represent enterocolitis.
[2019-05-27] MEDS ORDERED: HYDRALAZINE HCL INJ/PF 20 MG/1 ML SDV IV ONE (01:06)
[2019-05-27] MEDS ORDERED: HYDROMORPHONE HCL INJ/PF 2 MG/ML AMPULE IV ONE (01:06)
[2019-05-27 01:18] LABS: APPEARANCE,URINE SLIGHTLY-CLOUDY; BILIRUBIN,URINE NEGATIVE (NEGATIVE); COLOR,URINE YELLOW; GLUCOSE, URINE NEGATIVE (NEGATIVE); KETONES,URINE 20 mg/dL (NEGATIVE); PROTEIN,URINE 30 mg/dL (NEGATIVE); URINE SPECIFIC GRAVITY 1.033; UROBILINOGEN,URINE NEGATIVE mg/dL (<2.0)
[2019-05-27 01:33] LABS: URINE AMPHETAMINES SCREEN NEGATIVE; URINE BARBITURATES SCREEN NEGATIVE; URINE BENZODIAZEPINES SCREEN NEGATIVE; URINE COCAINE SCREEN NEGATIVE; URINE METHADONE SCREEN NEGATIVE; URINE PHENCYCLIDINE SCREEN NEGATIVE
[2019-05-27 01:34] LABS: URINE MARIJUANA (THC) SCREEN UNCONFIRMED POSITIVE
[2019-05-27] MEDS ORDERED: PANTOPRAZOLE SODIUM 40 MG VIAL IV ONE (01:39)
[2019-05-27] MEDS ORDERED: HYDROMORPHONE HCL INJ/PF 2 MG/ML AMPULE SUBCUT PRN (02:21)
[2019-05-27] MEDS ORDERED: MAG HYDROX/AL HYDROX/SIMETH SUSP 30 ML UDCUP PO PRN (02:22)
[2019-05-27] MEDS ORDERED: IPRATROPIUM/ALBUTEROL 0.5-2.5 MG/3 ML AMPUL NEB PRN (02:22)
[2019-05-27] MEDS ORDERED: HYDRALAZINE HCL INJ/PF 20 MG/1 ML SDV IV PRN (02:22)
[2019-05-27] MEDS ORDERED: NORMAL SALINE 1000 ML 1,000 ML IV PRN (02:30)
[2019-05-27] MEDS: ACETAMINOPHEN 325 MG TABLET PO PRN (04:17)
[2019-05-27] MEDS ORDERED: PROMETHAZINE HCL 25 MG SUPP.RECT PR PRN (04:33)
[2019-05-27] MEDS ORDERED: LORAZEPAM INJ 2 MG/1 ML VIAL IV ONE (04:34)
--- NOTE | 2019-05-27 04:57 | PDOC H&P ---
History of Present Illness Admission Date/PCP: 05/27/19 02:45 KASEY ANDRES PA-C Patient complains of: Nausea vomiting History of Present Illness: LIZ PAGE JR is a 58 year old male with a past medical history of opiate dependent chronic pain, H. pylori gastritis, chronic bronchitis, tobacco and cannabis abuse. He presents with 4 days of intractable abdominal pain, nausea and vomiting. He denies running out of his narcotics he denies excessive canna bis. Denying blood, fever, suspect meal or infectious contacts. In the emergency department he is found to have leukocytosis intractable abdominal pain nausea and vomiting of gastric content with a CT showing enteritis. He is referred to the hospitalist for admission he requires IV Dilaudid for symptom control. He admits previous episode but was unclear of the final diagnosis. He has not provided a current prescription list or bottles for evaluation. Past Medical History Cardiac Medical History: Reports: Hypertension Psychiatric Medical History: Denies: Depression Past Surgical History Past Surgical History: Reports: Cholecystectomy Social History Information Source: Patient Smoking Status: Current Every Day Smoker Frequency of Alcohol Use: None Hx Recreational Drug Use: No - denies Drugs: Marijuana - Advance Directive Resuscitation Status: Full Code Family History Family History: CAD, DM Parental Family History Reviewed: Yes Children Family History Reviewed: Yes Sibling(s) Family History Reviewed.: Yes Medication/Allergy Home Medications: Atorvastatin Calcium [Lipitor 10 mg Tablet] 10 mg PO QHS 11/13/17 Clonidine HCl [Catapres 0.3 mg Tablet] 0.3 mg PO Q12 11/13/17 Cyclobenzaprine HCl [Flexeril 10 mg Tablet] 10 mg PO QHS 11/13/17 Gabapentin [Neurontin] 800 mg PO BID 11/13/17 Lisinopril/Hydrochlorothiazide [Lisinopril-Hctz 20-25 mg Tab] 1 each PO DAILY 11/13/17 Morphine Sulfate [Morphine Ir 15 mg Tablet] 15 mg PO DAILYP PRN 11/13/17 Morphine Sulfate [Morphine Sulfate ER] 30 mg PO Q12A 11/13/17 Nicotine [Nicoderm 21 mg/24 Hr Transderm Patch] 1 each TD DAILYP PRN #30 patch.td24 11/16/17 Ondansetron [Zofran Odt 4 mg Tablet] 4 mg PO Q4HP PRN #20 tab.rapdis 11/16/17 Pantoprazole Sodium [Protonix] 40 mg PO BID 14 Days #28 tablet. 11/16/17 Allergies/Adverse Reactions: No Known Allergies Allergy (Verified 11/13/17 09:21) Review of Systems Constitutional: PRESENT: as per HPI. ABSENT: fatigue, fever(s), weakness Eyes: ABSENT: visual disturbances Ears: ABSENT: hearing changes Cardiovascular: ABSENT: chest pain, dyspnea on exertion, edema, orthropnea, palpitations Respiratory: PRESENT: as per HPI, cough, dyspnea. ABSENT: hemoptysis Gastrointestinal: PRESENT: as per HPI, abdominal pain, bloating, nausea, vomitin g. ABSENT: coffee ground emesis, diarrhea, dysphagia, heartburn, hematemesis, melena Genitourinary: ABSENT: dysuria, hematuria Musculoskeletal: ABSENT: joint swelling Integumentary: ABSENT: rash, wounds Neurological: ABSENT: abnormal gait, abnormal speech, confusion, dizziness, focal weakness, syncope Psychiatric: ABSENT: depression, homidical ideation, suicidal ideation Endocrine: ABSENT: cold intolerance, heat intolerance, polydipsia, polyuria Hematologic/Lymphatic: ABSENT: easy bleeding, easy bruising Physical Exam Vital Signs: Temp Pulse Resp BP Pulse Ox 98.1 F 11 L 186/89 H 98 05/27/19 04:16 05/27/19 04:16 05/27/19 04:16 05/27/19 04:16 Intake & Output 05/25/19 05/26/19 05/27/19 11:59 11:59 11:59 Intake Total 1000 Balance 1000 Weight 84.368 kg General appearance: PRESENT: cooperative, disheveled, mild distress, well- developed, well-nourished Head exam: PRESENT: atraumatic, normocephalic Eye exam: PRESENT: conjunctiva pink, EOMI, PERRLA. ABSENT: scleral icterus Ear exam: PRESENT: normal external ear exam Mouth exam: PRESENT: moist, tongue midline Neck exam: ABSENT: carotid bruit, JVD, lymphadenopathy, thyromegaly Respiratory exam: PRESENT: clear to auscultation pedro, prolonged expiratory phas, tachypnea. ABSENT: rales, rhonchi, wheezes Cardiovascular exam: PRESENT: +S1, +S2, tachycardia Pulses: PRESENT: normal dorsalis pedis pul Vascular exam: PRESENT: normal capillary refill GI/Abdominal exam: PRESENT: hyperactive bowel sounds, normal bowel sounds, soft, tenderness. ABSENT: distended, guarding, mass, organolmegaly, rebound Rectal exam: PRESENT: deferred Extremities exam: PRESENT: full ROM. ABSENT: calf tenderness, clubbing, pedal edema Neurological exam: PRESENT: alert, awake, oriented to person, oriented to place, oriented to time, oriented to situation, CN II-XII grossly intact. ABSENT: motor sensory deficit Psychiatric exam: PRESENT: appropriate affect, normal mood. ABSENT: homicidal ideation, suicidal ideation Skin exam: PRESENT: dry, intact, warm. ABSENT: cyanosis, rash Results Laboratory Results: 05/26/19 20:12 05/26/19 21:10 05/26/19 05/26/19 05/26/19 20:12 20:12 21:10 WBC 15.8 H RBC 5.48 Hgb 16.5 Hct 48.6 MCV 89 MCH 30.2 MCHC 34.0 RDW 14.2 H Plt Count 343 Seg Neutrophils % Not Reportable Sodium Cancelled 140.0 Potassium Cancelled 3.7 Chloride Cancelled 97 L Carbon Dioxide Cancelled 31 H Anion Gap Cancelled 12 BUN Cancelled 10 Creatinine Cancelled 0.66 Est GFR ( Amer) Cancelled > 60 Est GFR (Non-Af Amer) Cancelled Glucose Cancelled 128 H Calcium Cancelled 10.6 H Magnesium Cancelled 2.3 Total Bilirubin Cancelled 0.9 AST Cancelled 24 Alkaline Phosphatase Cancelled 118 Total Protein Cancelled 8.4 H Albumin Cancelled 4.8 Lipase Cancelled 39.7 Urine Color Urine Appearance Urine pH Ur Specific [place] Urine Protein Urine Glucose (UA) Urine Ketones Urine Blood 05/27/19 00:34 WBC RBC Hgb Hct MCV MCH MCHC RDW Plt Count Seg Neutrophils % Sodium Potassium Chloride Carbon Dioxide Anion Gap BUN Creatinine Est GFR ( Amer) Est GFR (Non-Af Amer) Glucose Calcium Magnesium Total Bilirubin AST Alkaline Phosphatase Total Protein Albumin Lipase Urine Color YELLOW Urine Appearance SLIGHTLY-CLOUDY Urine pH 9.0 Ur Specific [place] 1.033 Urine Protein 30 H Urine Glucose (UA) NEGATIVE Urine Ketones 20 H Urine Blood NEGATIVE 05/27/19 02:10 Troponin I 0.019 Impressions: Abdomen/Pelvis CT 05/26/19 00:00 IMPRESSION: Findings which may represent enterocolitis. Chest X-Ray 05/26/19 20:36 IMPRESSION: 1. No acute pulmonary findings. Assessment and Plan - Diagnosis (1) Enteritis Is this a current diagnosis for this admission?: Yes Plan: Afebrile, symptomatic management, clear liquid diet (2) Chronic back pain Is this a current diagnosis for this admission?: Yes Plan: Verify outpatient regiment given concerning primary complaint may be related (3) Hypertension Qualifiers: Hypertension type: essential hypertension Qualified Code(s): I10 - Essenti al (primary) hypertension Is this a current diagnosis for this admission?: Yes Plan: Clonidine, hydralazine as needed (4) Intractable nausea and vomiting Is this a current diagnosis for this admission?: Yes Plan: History of H. pylori, follow-up stool antigen assay, empiric Protonix ordered,, Phenergan p.o. and RI - Time Time Spent with patient: 25-34 minutes - Inpatient Certification Medical Necessity: Need Close Monitoring Due to Risk of Patient Decompensation
[2019-05-27] MEDS ORDERED: SUCRALFATE 1 GM TABLET PO ONE (05:15)
[2019-05-27] MEDS: PROMETHAZINE HCL 25 MG TABLET PO PRN ×2 (05:28→21:09)
[2019-05-27] MEDS: KETOROLAC TROMETHAMINE INJ/PF 30 MG/1 ML SDV IV PRN ×2 (05:28→21:09)
[2019-05-27] MEDS: HEPARIN SOD (PORCINE) 5,000 UNIT/ML 1 ML VIAL SUBCUT SCH ×3 (05:31→21:06)
[2019-05-27 06:40] LABS: HEMATOCRIT 45.4 % (37.9-51.0); HEMOGLOBIN 15.8 g/dL (13.5-17.0); MEAN CORPUSCULAR HEMOGLOBIN 30.4 pg (27.0-33.4); MEAN CORPUSCULAR HGB CONC 34.8 g/dL (32.0-36.0); MEAN CORPUSCULAR VOLUME 87 fl (80-97); PLATELET COUNT 304 10^3/uL (150-450); WHITE BLOOD COUNT 20.8 10^3/uL (4.0-10.5)
[2019-05-27 06:49] LABS: ALBUMIN 4.2 g/dL (3.5-5.0); ALKALINE PHOSPHATASE 101 U/L (38-126); ANION GAP 10 (5-19); ASPARTATE AMINO TRANSFERASE 22 U/L (17-59); BILIRUBIN,DIRECT 0.1 mg/dL (0.0-0.4); BILIRUBIN,TOTAL 0.9 mg/dL (0.2-1.3); BLOOD UREA NITROGEN 9 mg/dL (7-20); CALCIUM 9.4 mg/dL (8.4-10.2); CARBON DIOXIDE 26 mmol/L (22-30); CHLORIDE 100 mmol/L (98-107); GLUCOSE 120 mg/dL (75-110); POTASSIUM 3.4 mmol/L (3.6-5.0); TOTAL PROTEIN 7.2 g/dL (6.3-8.2)
[2019-05-27 07:04] LABS: ABSOLUTE LYMPHOCYTES# (MANUAL) 1.2 10^3/uL (0.5-4.7); ABSOLUTE MONOCYTES # (MANUAL) 1.5 10^3/uL (0.1-1.4); BASOPHILS % (MANUAL) 0 % (0-2); EOSINOPHILS % (MANUAL) 0 % (0-6); LYMPHOCYTES % (MANUAL) 6 % (13-45); MONOCYTES % (MANUAL) 7 % (3-13); SEGMENTED NEUTROPHILS % (MAN) 87 % (42-78); TOTAL CELLS COUNTED 100
[2019-05-27 07:05] LABS: ANISOCYTOSIS SLIGHT; PLATELET COMMENT ADEQUATE
[2019-05-27] MEDS: IPRATROPIUM/ALBUTEROL 0.5-2.5 MG/3 ML AMPUL NEB SCH ×2 (09:00→16:42)
[2019-05-27] MEDS: PANTOPRAZOLE SODIUM 40 MG VIAL IV SCH ×2 (09:48→21:06)
[2019-05-27] MEDS: HYDROMORPHONE HCL INJ/PF 2 MG/ML AMPULE SUBCUT SCH ×2 (14:19→21:05)
[2019-05-27] MEDS: SUCRALFATE 1 GM TABLET PO SCH ×2 (14:20→17:57)
[2019-05-27] MEDS: HYDROMORPHONE HCL INJ/PF 2 MG/ML AMPULE SUBCUT PRN (17:57)
--- NOTE | 2019-05-27 18:10 | Progress Note ---
Provider Note Provider Note: LIZ PAGE JR is a 58 year old male with a past medical history of opiate dependent chronic pain, H. pylori gastritis, chronic bronchitis, tobacco and cannabis abuse who was admitted early this morning by the food counter worker for enteritis with intractable nausea and vomiting. Overnight events, vital signs, laboratory results, imaging reports, and orders reviewed; agree with plan of care as established by the previous provider. The patient continues on clear liquid diet with maintenance IV fluids. He has antiemetics and analgesics ordered. He has been placed on twice daily Protonix and Carafate. Of note, the [place] controlled substance database report was reviewed. The patient is prescribed morphine ER 30 mg #60 monthly and morphine IR 15 mg #40 monthly. He has been on this regiment for the last several months. The patient subcutaneous Dilaudid was adjusted to closely resemble his home opiate usage. The patient was briefly seen this afternoon. I did discuss with him his current pain management orders; patient was advised that once he was tolerating clear liquids, we would resume his home medication regiment but that additional narcotics would not be recommended as they are typically not effective in treatment of gastritis/enteritis and may exacerbate his cyclic nausea vomiting. The patient did adamantly decline regular alcohol use. He reports that his last marijuana use was greater than a week ago; denies daily use.
[2019-05-27] MEDS: HYDRALAZINE HCL INJ/PF 20 MG/1 ML SDV IV PRN (22:06)
[2019-05-28] MEDS: CLONIDINE HCL 0.2 MG TABLET PO SCH ×4 (00:40→17:09)
[2019-05-28] MEDS: IPRATROPIUM/ALBUTEROL 0.5-2.5 MG/3 ML AMPUL NEB SCH ×3 (00:45→16:36)
[2019-05-28] MEDS: HYDRALAZINE HCL INJ/PF 20 MG/1 ML SDV IV PRN (04:35)
[2019-05-28] MEDS: ACETAMINOPHEN 325 MG TABLET PO PRN ×2 (04:42→21:26)
[2019-05-28] MEDS: KETOROLAC TROMETHAMINE INJ/PF 30 MG/1 ML SDV IV PRN ×2 (04:46→21:27)
[2019-05-28] MEDS: HYDROMORPHONE HCL INJ/PF 2 MG/ML AMPULE SUBCUT SCH (05:16)
[2019-05-28] MEDS: HEPARIN SOD (PORCINE) 5,000 UNIT/ML 1 ML VIAL SUBCUT SCH ×3 (05:17→23:00)
[2019-05-28 05:48] LABS: ABSOLUTE BASOPHILS # (AUTO) 0.1 10^3/uL (0.0-0.2); ABSOLUTE LYMPHOCYTES (AUTO) 0.8 10^3/uL (0.5-4.7); ABSOLUTE MONOCYTES (AUTO) 0.6 10^3/uL (0.1-1.4); ABSOLUTE NEUT (AUTO) 12.6 10^3/uL (1.7-8.2); BASOPHILS % (AUTO) 0.9 % (0-2); HEMATOCRIT 50.6 % (37.9-51.0); HEMOGLOBIN 17.3 g/dL (13.5-17.0); LYMPHOCYTES % (AUTO) 5.7 % (13-45); MEAN CORPUSCULAR HGB CONC 34.2 g/dL (32.0-36.0); MEAN CORPUSCULAR VOLUME 88 fl (80-97); MONOCYTES % (AUTO) 4.3 % (3-13); PLATELET COUNT 255 10^3/uL (150-450); RED BLOOD COUNT 5.78 10^6/uL (4.35-5.55); SEGMENTED NEUTROPHILS % (AUTO) 89.1 % (42-78); TOTAL CELLS COUNTED % (AUTO) 100 %; WHITE BLOOD COUNT 14.1 10^3/uL (4.0-10.5)
[2019-05-28 07:24] LABS: ALBUMIN 3.8 g/dL (3.5-5.0); ALKALINE PHOSPHATASE 83 U/L (38-126); ANION GAP 12 (5-19); ASPARTATE AMINO TRANSFERASE 20 U/L (17-59); BILIRUBIN,DIRECT 0.2 mg/dL (0.0-0.4); BILIRUBIN,TOTAL 1.6 mg/dL (0.2-1.3); BLOOD UREA NITROGEN 12 mg/dL (7-20); CALCIUM 8.7 mg/dL (8.4-10.2); CARBON DIOXIDE 23 mmol/L (22-30); CHLORIDE 100 mmol/L (98-107); GLUCOSE 101 mg/dL (75-110); POTASSIUM 3.5 mmol/L (3.6-5.0); TOTAL PROTEIN 6.5 g/dL (6.3-8.2)
[2019-05-28] MEDS: SUCRALFATE 1 GM TABLET PO SCH ×3 (09:04→17:09)
[2019-05-28] MEDS: PANTOPRAZOLE SODIUM 40 MG VIAL IV SCH ×2 (09:04→21:26)
[2019-05-28] MEDS: HYDROMORPHONE HCL INJ/PF 2 MG/ML AMPULE SUBCUT PRN (12:26)
[2019-05-28] MEDS ORDERED: MORPHINE SULFATE IR 15 MG TABLET PO PRN (14:46)
--- NOTE | 2019-05-28 14:46 | PDOC PROGRESS REPORT ---
Subjective Progress Note for:: 05/28/19 Reason For Visit: OPIATE WITHDRAW GASTRITIS 05/28/2019 Patient admitted with abdominal pain x4 days nausea vomiting. Patient comes in with narcotic abuse, enteritis, hypertension, intractable nausea vomiting Physical Exam Vital Signs: Temp Pulse Resp BP Pulse Ox 97.6 F 100 16 127/76 H 94 05/28/19 11:02 05/28/19 13:53 05/28/19 11:02 05/28/19 11:02 05/28/19 11:02 Intake & Output 05/27/19 05/28/19 05/29/19 06:59 06:59 06:59 Intake Total 1000 832 120 Output Total 425 Balance 1000 407 120 Weight 84.3 kg 72.2 kg General appearance: PRESENT: no acute distress, other - Asking to advance his diet to go home Respiratory exam: PRESENT: clear to auscultation pedro. ABSENT: rales, rhonchi, wheezes Cardiovascular exam: PRESENT: RRR. ABSENT: diastolic murmur, rubs, systolic murmur Neurological exam: PRESENT: alert, awake, oriented to person, oriented to place, oriented to time, oriented to situation, CN II-XII grossly intact. ABSENT: motor sensory deficit Psychiatric exam: PRESENT: appropriate affect, normal mood, other - No expression of suicidal or homicidal thoughts. ABSENT: homicidal ideation, suicidal ideation Results Laboratory Results: 05/28/19 05:05 05/28/19 06:43 05/28/19 05/28/19 05/28/19 05:05 05:05 06:43 WBC 14.1 H RBC 5.78 H Hgb 17.3 H Hct 50.6 MCV 88 MCH 30.0 MCHC 34.2 RDW 14.0 Plt Count 255 Seg Neutrophils % 89.1 H Sodium Cancelled 134.6 L Potassium Cancelled 3.5 L Chloride Cancelled 100 Carbon Dioxide Cancelled 23 Anion Gap Cancelled 12 BUN Cancelled 12 Creatinine Cancelled 0.56 Est GFR ( Amer) Cancelled > 60 Est GFR (Non-Af Amer) Cancelled Glucose Cancelled 101 Calcium Cancelled 8.7 Total Bilirubin Cancelled 1.6 H AST Cancelled 20 Alkaline Phosphatase Cancelled 83 Total Protein Cancelled 6.5 Albumin Cancelled 3.8 05/26/19 21:02 Throat Throat Culture - Final NORMAL LUIS 05/27/19 02:10 Troponin I 0.019 Impressions: Abdomen/Pelvis CT 05/26/19 00:00 IMPRESSION: Findings which may represent enterocolitis. Chest X-Ray 05/26/19 20:36 IMPRESSION: 1. No acute pulmonary findings. Assessment and Plan - Diagnosis (1) Abdominal pain Qualifiers: Abdominal location: epigastric Qualified Code(s): R10.13 - Epigastric pain Is this a current diagnosis for this admission?: Yes (2) Enteritis Is this a current diagnosis for this admission?: Yes (3) Vomiting Qualifiers: Vomiting type: unspecified Vomiting Intractability: intractable Nausea presence: with nausea Qualified Code(s): R11.2 - Nausea with vomiting, unspecified Is this a current diagnosis for this admission?: Yes (4) Chronic back pain Is this a current diagnosis for this admission?: Yes (5) Hypertension Qualifiers: Hypertension type: essential hypertension Qualified Code(s): I10 - Essential (primary) hypertension Is this a current diagnosis for this admission?: Yes (6) Opiate dependence, continuous Is this a current diagnosis for this admission?: Yes (7) Tobacco abuse Is this a current diagnosis for this admission?: Yes - Plan Summary Summary: 05/28/2019 Patient's diet will be advanced today and if he tolerates it well discharge to home tomorrow. Once patient is tolerating a clear liquid I will DC his IV Dilaudid, today. Patient 98 6 pulse between 110 and 140 blood pressure elevated 178/108, 193/105, O2 sat 97% on room air. White count is normal - Time Time Spent with patient: 25-34 minutes
[2019-05-28] MEDS: MORPHINE SULFATE SR 30 MG TABLET PO SCH ×2 (17:09→21:28)
[2019-05-28] MEDS: PROMETHAZINE HCL 25 MG TABLET PO PRN (21:28)
[2019-05-29] MEDS: IPRATROPIUM/ALBUTEROL 0.5-2.5 MG/3 ML AMPUL NEB SCH ×2 (00:04→08:18)
[2019-05-29] MEDS: CLONIDINE HCL 0.2 MG TABLET PO SCH ×2 (01:30→06:31)
[2019-05-29 04:24] VITALS: BP 119/73
[2019-05-29] MEDS: HEPARIN SOD (PORCINE) 5,000 UNIT/ML 1 ML VIAL SUBCUT SCH (06:32)
[2019-05-29] MEDS: ACETAMINOPHEN 325 MG TABLET PO PRN (06:32)
[2019-05-29] MEDS: KETOROLAC TROMETHAMINE INJ/PF 30 MG/1 ML SDV IV PRN (06:32)
--- NOTE | 2019-05-29 11:29 | PDOC DISCHARGE SUMMARY ---
Impression - Admit/DC Date/PCP Admission Date/Primary Care Provider: 05/27/19 02:45 KASEY ANDRES PA-C Discharge Date: 05/29/19 - Discharge Diagnosis (1) Abdominal pain Is this a current diagnosis for this admission?: Yes (2) Enteritis Is this a current diagnosis for this admission?: Yes (3) Vomiting Is this a current diagnosis for this admission?: Yes (4) Chronic back pain Is this a current diagnosis for this admission?: Yes (5) Hypertension Is this a current diagnosis for this admission?: Yes (6) Opiate dependence, continuous Is this a current diagnosis for this admission?: Yes (7) Tobacco abuse Is this a current diagnosis for this admission?: Yes - Assessment Summary: 05/28/2019 Patient's diet will be advanced today and if he tolerates it well discharge to home tomorrow. Once patient is tolerating a clear liquid I will DC his IV Dilaudid, today. Patient 98 6 pulse between 110 and 140 blood pressure elevated 178/108, 193/105, O2 sat 97% on room air. 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 No sign of infection. White blood cell count is trending down. Patient was not placed on any antibiotics. Patient was given IV Dilaudid while he was dealing with his abdominal pain. Patient is used to normally taking opiates on a daily basis for his chronic pain She has done well at home on Catapres 0.3 mg every 8 hours for his hypertension he was on twice daily dosing prior to admission Protonix daily and Carafate daily Patient was told to follow-up with his GI doctor as well as his primary care provider - Additional Information Resuscitation Status: Full Code Discharge Diet: As Tolerated, Cardiac Discharge Activity: Activity As Tolerated, Balance Activity w/Rest Referrals: KASEY ANDRES PA-C [Primary Care Provider] - 07/01/19 9:15 am Prescriptions: Sucralfate [Carafate 1 gm Tablet] 1 gm PO ACHS 30 Days #120 tablet Clonidine HCl [Catapres 0.2 mg Tablet] 0.3 mg PO Q8 30 Days #90 tab Clonidine HCl [Catapres 0.2 mg Tablet] 0.3 mg PO Q6 30 Days #90 tablet Pantoprazole Sodium [Protonix [address] Tablet] 20 mg PO BID 30 Days #60 tablet.dr Home Medications: Morphine Sulfate [Morphine Ir 15 mg Tablet] 15 mg PO DAILYP PRN 11/13/17 Morphine Sulfate [Morphine Sulfate ER] 30 mg PO Q12 11/13/17 Clonidine HCl [Catapres 0.2 mg Tablet] 0.3 mg PO Q6 30 Days #90 tablet 05/29/19 Clonidine HCl [Catapres 0.2 mg Tablet] 0.3 mg PO Q8 30 Days #90 tab 05/29/19 Pantoprazole Sodium [Protonix [address] Tablet] 20 mg PO BID 30 Days #60 tablet.dr 05/29/19 Sucralfate [Carafate 1 gm Tablet] 1 gm PO ACHS 30 Days #120 tablet 05/29/19 History of Present Illiness History of Present Illness: LIZ PAGE JR is a 58 year old male Physical Exam Vital Signs: Temp Pulse Resp BP Pulse Ox 98.1 F 87 17 119/73 95 05/29/19 08:50 05/29/19 08:50 05/29/19 08:50 05/29/19 08:50 05/29/19 08:50 Intake & Output 05/28/19 05/29/19 05/30/19 06:59 06:59 06:59 Intake Total 1832 1048 Output Total 425 Balance 1407 1048 Weight 72.2 kg 73 kg Results Laboratory Results: WBC 14.1 10^3/uL (4.0-10.5) H 05/28/19 05:05 RBC 5.78 10^6/uL (4.35-5.55) H 05/28/19 05:05 Hgb 17.3 g/dL (13.5-17.0) H 05/28/19 05:05 Hct 50.6 % (37.9-51.0) 05/28/19 05:05 MCV 88 fl (80-97) 05/28/19 05:05 MCH 30.0 pg (27.0-33.4) 05/28/19 05:05 MCHC 34.2 g/dL (32.0-36.0) 05/28/19 05:05 RDW 14.0 % (11.5-14.0) 05/28/19 05:05 Plt Count 255 10^3/uL (150-450) 05/28/19 05:05 Lymph % (Auto) 5.7 % (13-45) L 05/28/19 05:05 [place] % (Auto) 4.3 % (3-13) 05/28/19 05:05 Eos % (Auto) 0.0 % (0-6) 05/28/19 05:05 Baso % (Auto) 0.9 % (0-2) 05/28/19 05:05 Absolute Neuts (auto) 12.6 10^3/uL (1.7-8.2) H 05/28/19 05:05 Absolute Lymphs (auto) 0.8 10^3/uL (0.5-4.7) 05/28/19 05:05 Absolute Monos (auto) 0.6 10^3/uL (0.1-1.4) 05/28/19 05:05 Absolute Eos (auto) 0.0 10^3/uL (0.0-0.6) 05/28/19 05:05 Absolute Basos (auto) 0.1 10^3/uL (0.0-0.2) 05/28/19 05:05 Total Counted 100 05/27/19 05:59 Seg Neutrophils % 89.1 % (42-78) H 05/28/19 05:05 Seg Neuts % (Manual) 87 % (42-78) H 05/27/19 05:59 Band Neutrophils % 1 % (3-5) L 05/26/19 20:12 Lymphocytes % (Manual) 6 % (13-45) L 05/27/19 05:59 Monocytes % (Manual) 7 % (3-13) 05/27/19 05:59 Eosinophils % (Manual) 0 % (0-6) 05/27/19 05:59 Basophils % (Manual) 0 % (0-2) 05/27/19 05:59 Abs Neuts (Manual) 18.1 10^3/uL (1.7-8.2) H 05/27/19 05:59 Abs Lymphs (Manual) 1.2 10^3/uL (0.5-4.7) 05/27/19 05:59 Abs Monocytes (Manual) 1.5 10^3/uL (0.1-1.4) H 05/27/19 05:59 Absolute Eos (Manual) 0.0 10^3/uL (0.0-0.6) 05/27/19 05:59 Abs Basophils (Manual) 0.0 10^3/uL (0.0-0.2) 05/27/19 05:59 Platelet Comment ADEQUATE 05/27/19 05:59 Anisocytosis SLIGHT 05/27/19 05:59 Sodium 134.6 mmol/L (137-145) L 05/28/19 06:43 Potassium 3.5 mmol/L (3.6-5.0) L 05/28/19 06:43 Chloride 100 mmol/L (98-107) 05/28/19 06:43 Carbon Dioxide 23 mmol/L (22-30) 05/28/19 06:43 Anion Gap 12 (5-19) 05/28/19 06:43 BUN 12 mg/dL (7-20) 05/28/19 06:43 Creatinine 0.56 mg/dL (0.52-1.25) 05/28/19 06:43 Est GFR ( Amer) > 60 (>60) 05/28/19 06:43 Est GFR (Non-Af Amer) Cancelled 05/28/19 05:05 Est GFR (MDRD) Non-Af > 60 (>60) 05/28/19 06:43 Glucose 101 mg/dL (75-110) 05/28/19 06:43 Calcium 8.7 mg/dL (8.4-10.2) 05/28/19 06:43 Magnesium 2.3 mg/dL (1.6-2.3) 05/26/19 21:10 Total Bilirubin 1.6 mg/dL (0.2-1.3) H 05/28/19 06:43 Direct Bilirubin 0.2 mg/dL (0.0-0.4) 05/28/19 06:43 Neonat Total Bilirubin Not Reportable 05/28/19 06:43 Neonat Direct Bilirubin Not Reportable 05/28/19 06:43 Neonat Indirect Bili Not Reportable 05/28/19 06:43 AST 20 U/L (17-59) 05/28/19 06:43 ALT 19 U/L (<50) 05/28/19 06:43 Alkaline Phosphatase 83 U/L (38-126) 05/28/19 06:43 Troponin I 0.019 ng/mL 05/27/19 02:10 Total Protein 6.5 g/dL (6.3-8.2) 05/28/19 06:43 Albumin 3.8 g/dL (3.5-5.0) 05/28/19 06:43 Lipase 39.7 U/L (23-300) 05/26/19 21:10 EGFR Cancelled 05/28/19 05:05 Urine Color YELLOW 05/27/19 00:34 Urine Appearance SLIGHTLY-CLOUDY 05/27/19 00:34 Urine pH 9.0 (5.0-9.0) 05/27/19 00:34 Ur Specific [place] 1.033 05/27/19 00:34 Urine Protein 30 mg/dL (NEGATIVE) H 05/27/19 00:34 Urine Glucose (UA) NEGATIVE mg/dL (NEGATIVE) 05/27/19 00:34 Urine Ketones 20 mg/dL (NEGATIVE) H 05/27/19 00:34 Urine Blood NEGATIVE (NEGATIVE) 05/27/19 00:34 Urine Nitrite (Reflex) NEGATIVE (NEGATIVE) 05/27/19 00:34 Urine Bilirubin NEGATIVE (NEGATIVE) 05/27/19 00:34 Urine Urobilinogen NEGATIVE mg/dL (<2.0) 05/27/19 00:34 Leukocyte Esterase Rfl NEGATIVE (NEGATIVE) 05/27/19 00:34 Urine Mucus (Auto) RARE /LPF 05/27/19 00:34 Urine Ascorbic Acid NEGATIVE (NEGATIVE) 05/27/19 00:34 Urine Opiates Screen UNCONFIRMED POSITIVE 05/27/19 00:34 Urine Methadone Screen NEGATIVE 05/27/19 00:34 Ur Barbiturates Screen NEGATIVE 05/27/19 00:34 Ur Phencyclidine Scrn NEGATIVE 05/27/19 00:34 Ur Amphetamines Screen NEGATIVE 05/27/19 00:34 U Benzodiazepines Scrn NEGATIVE 05/27/19 00:34 Urine Cocaine Screen NEGATIVE 05/27/19 00:34 U Marijuana (THC) Screen UNCONFIRMED POSITIVE 05/27/19 00:34 Serum Alcohol < 10 mg/dL (NONE DETECTED) 05/26/19 21:10 05/27/19 02:10 Troponin I 0.019 Impressions: Abdomen/Pelvis CT 05/26/19 00:00 IMPRESSION: Findings which may represent enterocolitis. Chest X-Ray 05/26/19 20:36 IMPRESSION: 1. No acute pulmonary findings. Stroke Is this a Stroke Patient?: No Acute Heart Failure - Is this a Heart Failure Patient?: No
== END 2019-05-29 09:18 | disposition home or self-care (01) | DRG 392 ==
LOC: ER 19:52 → EH 05-27 02:45 → 3S 05-27 04:42
PROVIDERS: ADMIT Internal Medicine; ATTEND Internal Medicine
DX: K52.9 Noninfective gastroenteritis and colitis, unspecified (principal); I10 Essential (primary) hypertension; G89.29 Other chronic pain; F17.210 Nicotine dependence, cigarettes, uncomplicated; F12.10 Cannabis abuse, uncomplicated; M54.9 Dorsalgia, unspecified; Z79.891 Long term (current) use of opiate analgesic; Z90.49 Acquired absence of other specified parts of digestive tract; Z83.3 Family history of diabetes mellitus; Z82.49 Family history of ischemic heart disease and other diseases of the circulatory system; Z87.11 Personal history of peptic ulcer disease
CPT/HCPCS: 36415; 71045; 74177; 80053; 80307; 81001; 83690; 83735; 84484; 85025; 87070; 93005; 93010; 96361; 96374; 96375; 96376; 99285; C9113; J0360; J0780; J1170; J1644; J1885; J2060; J2405; J2765; J3010; J7030; J7620; S0028

== ENCOUNTER 2019-10-14 06:01 | Inpatient (IN) | payer MEDICARE ==
[2019-10-14 06:36] LABS: HEMATOCRIT 54.8 % (37.9-51.0); HEMOGLOBIN 18.9 g/dL (13.5-17.0); MEAN CORPUSCULAR HEMOGLOBIN 30.8 pg (27.0-33.4); MEAN CORPUSCULAR HGB CONC 34.5 g/dL (32.0-36.0); MEAN CORPUSCULAR VOLUME 89 fl (80-97); PLATELET COUNT 353 10^3/uL (150-450); RED BLOOD COUNT 6.15 10^6/uL (4.35-5.55); RED CELL DISTRIBUTION WIDTH 13.9 % (11.5-14.0)
[2019-10-14 06:55] LABS: ABSOLUTE LYMPHOCYTES# (MANUAL) 0.5 10^3/uL (0.5-4.7); ABSOLUTE MONOCYTES # (MANUAL) 0.8 10^3/uL (0.1-1.4); BAND NEUTROPHILS % (MANUAL) 1 % (3-5); BASOPHILS % (MANUAL) 0 % (0-2); EOSINOPHILS % (MANUAL) 0 % (0-6); LYMPHOCYTES % (MANUAL) 2 % (13-45); MONOCYTES % (MANUAL) 3 % (3-13); SEGMENTED NEUTROPHILS % (MAN) 94 % (42-78); TOTAL CELLS COUNTED 100
[2019-10-14 06:56] LABS: PLATELET COMMENT ADEQUATE; RBC MORPHOLOGY COMMENT NORMO-CYTIC/CHROMIC
[2019-10-14] MEDS ORDERED: ONDANSETRON HCL INJ/PF 4 MG/2 ML SDV IV ONE (07:17)
[2019-10-14] MEDS ORDERED: MORPHINE SULFATE 10 MG/ML INJ IV ONE (07:17)
[2019-10-14] MEDS ORDERED: NORMAL SALINE 1000 ML 1,000 ML IV ONE ×2 (07:17→12:53)
[2019-10-14 07:19] LABS: ALBUMIN 4.9 g/dL (3.5-5.0); ALKALINE PHOSPHATASE 132 U/L (38-126); ANION GAP 14 (5-19); ASPARTATE AMINO TRANSFERASE 39 U/L (17-59); BILIRUBIN,DIRECT 0.4 mg/dL (0.0-0.4); BILIRUBIN,TOTAL 1.4 mg/dL (0.2-1.3); BLOOD UREA NITROGEN 10 mg/dL (7-20); CALCIUM 11.1 mg/dL (8.4-10.2); CARBON DIOXIDE 27 mmol/L (22-30); CHLORIDE 98 mmol/L (98-107); GLUCOSE 190 mg/dL (75-110); POTASSIUM 3.5 mmol/L (3.6-5.0); TOTAL PROTEIN 9.2 g/dL (6.3-8.2)
--- NOTE | 2019-10-14 07:19 | ER Document Report ---
ED Medical Screen (RME) - General Chief Complaint: Abdominal Pain Stated Complaint: ABDOMINAL PAIN Time Seen by Provider: 10/14/19 07:13 Primary Care Provider: KASEY ANDRES PA-C [Primary Care Provider] - Follow up as needed Notes: Patient is a 58-year-old male with chief complaint of upper abdominal pain that is severe with multiple episodes of vomiting. He states pain goes up into his chest. He denies hematochezia or hematemesis. He states he is on morphine for chronic back pain, denies any recent alcohol but does report previous drinking, denies history of pancreatitis, he has had a cholecystectomy. He is also on Carafate and pantoprazole. He is unsure of PUD. He denies medical history otherwise. TRAVEL OUTSIDE OF THE [place] IN LAST 30 DAYS: No - Related Data Allergies/Adverse Reactions: No Known Allergies Allergy (Verified 10/14/19 06:11) Past Medical History - Social History Frequency of alcohol use: None Drug Abuse: None - Past Medical History Cardiac Medical History: Reports: Hx Hypertension Renal/ Medical History: Denies: Hx Peritoneal Dialysis Psychiatric Medical History: Denies: Hx Depression Past Surgical History: Reports: Hx Cholecystectomy Physical Exam - Vital signs Vitals: Temp 98.1 F 10/14/19 06:04 - General General appearance: Other - Patient appears uncomfortable but is cooperative and not in severe distress - Abdominal Tenderness: Tender - There is tenderness in the general mid to upper abdomen, nonspecific, no rigidity or obvious distention Course - Re-evaluation Re-evalutation: I have greeted and performed a rapid initial assessment of this patient. A comp rehensive ED assessment and evaluation of the patient, analysis of test results and completion of the medical decision making process will be conducted by additional ED providers. - Vital Signs Vital signs: Temp Pulse Resp BP Pulse Ox 98.1 F 13 192/124 H 99 10/14/19 06:14 10/14/19 06:14 10/14/19 06:14 10/14/19 06:14 - Laboratory Result Diagrams: 10/14/19 06:10 10/14/19 06:10 Laboratory results interpreted by me: 10/14/19 06:10 WBC 25.0 H RBC 6.15 H Hgb 18.9 H Hct 54.8 H Seg Neuts % (Manual) 94 H Band Neutrophils % 1 L Lymphocytes % (Manual) 2 L Abs Neuts (Manual) 23.8 H Doctor's Discharge - Discharge Referrals: KASEY ANDRES PA-C [Primary Care Provider] - Follow up as needed
[2019-10-14] MEDS ORDERED: HYDROMORPHONE HCL INJ/PF 2 MG/ML AMPULE IV ONE ×5 (08:23→15:30)
[2019-10-14] MEDS ORDERED: HYDRALAZINE HCL INJ/PF 20 MG/1 ML SDV IV ONE ×2 (08:23→09:32)
--- NOTE | 2019-10-14 08:23 | RADIOLOGY REPORT (SQ) ---
EXAM DESCRIPTION: CHEST SINGLE VIEW IMAGES COMPLETED DATE/TIME: 10/14/2019 7:43 am REASON FOR STUDY: chest pain COMPARISON: 05/26/2019 EXAM PARAMETERS: NUMBER OF VIEWS: One view. TECHNIQUE: Single frontal radiographic view of the chest acquired. RADIATION DOSE: NA LIMITATIONS: None. FINDINGS: LUNGS AND PLEURA: No opacities, masses or pneumothorax. No pleural effusion. MEDIASTINUM AND HILAR STRUCTURES: No masses. Contour normal. HEART AND VASCULAR STRUCTURES: Heart normal in size. Normal vasculature. BONES: No acute findings. HARDWARE: None in the chest. OTHER: No other significant finding. IMPRESSION: NO ACUTE RADIOGRAPHIC FINDING IN THE CHEST. TECHNICAL DOCUMENTATION: JOB ID: [id number] [employer]- All Rights Reserved Reading location - IP/workstation name: [email or web address]
[2019-10-14] MEDS ORDERED: PROCHLORPERAZINE EDISYLATE INJ 10 MG/2 ML VIAL IV ONE ×2 (08:24→11:46)
[2019-10-14] MEDS ORDERED: IPRATROPIUM/ALBUTEROL 0.5-2.5 MG/3 ML AMPUL NEB ONE (08:26)
--- NOTE | 2019-10-14 08:28 | ER Document Report ---
ED GI/ - General Chief Complaint: Abdominal Pain Stated Complaint: ABDOMINAL PAIN Time Seen by Provider: 10/14/19 08:13 Mode of Arrival: Ambulatory Information source: Patient Notes: Complaint of upper abdominal pain for the past 3 days with nausea and vomiting. Patient states he is vomited about 3 times today without any diarrhea. Patient reports subjective fever and chills. Patient reports cough that developed today. Patient denies any urinary symptoms. Patient states that during his stay here he has had abdominal pain that is radiating up into the chest. Patient reports a history of gastritis in the past with hypertension and chronic back pain. Patient has had a previous cholecystectomy. Patient is hypertensive today and states that he has had vomiting and unable to keep his medications down. TRAVEL OUTSIDE OF THE [place] IN LAST 30 DAYS: No - HPI Patient complains to provider of: Abdominal pain, Vomiting. No: Diarrhea Onset: Other - 3 days Timing/Duration: Persistent Quality of pain: Burning Pain Level: 5 Location: Epigastric Associated symptoms: Chest pain, Chills, Nausea, Vomiting. 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 denies: Short of breath Gastrointestinal: Abdominal pain, Nausea, Vomiting. denies: Diarrhea Genitourinary: No symptoms reported. denies: Dysuria Male Genitourinary: No symptoms reported Musculoskeletal: Back pain - Chronic back pain Skin: No symptoms reported Hematologic/Lymphatic: No symptoms reported Neurological/Psychological: No symptoms reported Physical Exam - Vital signs Vitals: Temp 98.1 F 10/14/19 06:04 - General General appearance: Alert In distress: Mild - HEENT Head: Normocephalic, Atraumatic Eyes: Normal Conjunctiva: Normal Nasal: Normal Mouth/Lips: Normal Neck: Normal, Supple - Respiratory Respiratory status: No respiratory distress Chest status: Tender Breath sounds: Nonproductive cough, Rhonchi Chest palpation: Normal - Cardiovascular Rhythm: Regular Heart sounds: S1 appreciated, S2 appreciated - Abdominal Inspection: Normal Distension: No distension Bowel sounds: Normal Tenderness: Tender - Diffuse abdominal tenderness Organomegaly: No organomegaly - Back Back: Normal - Extremities General upper extremity: Normal inspection, Normal strength General lower extremity: Normal inspection, Normal strength - Neurological Neuro grossly intact: Yes Cognition: Normal Helen Coma Scale Eye Opening: Spontaneous [place] Coma Scale Verbal: Oriented [place] Coma Scale Motor: Obeys Commands [place] Coma Scale Total: 15 - Psychological Associated symptoms: Normal affect, Normal mood - Skin Skin Temperature: Warm Skin Moisture: Dry Skin Color: Normal Course - Re-evaluation Re-evalutation: 10/14/19 09:33 Patient with no acute findings noted on CT scan, patient complains of continued abdominal pain worse to the epigastrium. Will add GI cocktail as well as additional blood pressure medicine at this time. Patient continues hypertensive. 10/14/19 10:[address] Webb regarding patient's persistent hypertension despite use of hydralazine, patient is tachycardic as well now. Patient continues to complain of epigastric tenderness. No acute findings noted on patient's CT scan. Dr. Webb advises giving IV Lopressor 5 mg every 5 minutes as needed for his hypertension at this time. 10/14/19 11:[address] Webb who advises giving a second GI cocktail at this time for patient's symptoms patient has a known history of gastritis. Also advises giving dose of IV Protonix. 10/14/19 11:46 Patient with additional vomiting episode, will order additional medication at this time. 10/14/19 12:54 Patient is requesting something to drink although reports nausea and is retching at bedside. Patient states that his last endoscopy procedure was about 5 years ago but is uncertain of the results. 10/14/19 13:15 Consulted with hospitalist Stephanie Johnston who had concerns that patient has required multiple doses of IV antihypertensive and is concerned that patient may need a drip which would require an ICU admission at this time recommends consultation with the sales attendant. Consulted with sales attendant Dr. Machado who agrees to evaluate patient although does not at this time suspect that patient requires an ICU admission. 10/14/19 13:36 Spoke with Stephanie Johnston who agrees to accept patient to IMCU under the service of Dr. Lindsey - Vital Signs Vital signs: Temp Pulse Resp BP Pulse Ox 98.1 F 91 16 170/104 H 98 10/14/19 06:14 10/14/19 17:04 10/14/19 17:04 10/14/19 15:30 10/14/19 17:04 - Laboratory Result Diagrams: 10/14/19 06:10 10/14/19 06:10 Laboratory results interpreted by me: 10/14/19 10/14/19 06:10 06:10 WBC 25.0 H RBC 6.15 H Hgb 18.9 H Hct 54.8 H Seg Neuts % (Manual) 94 H Band Neutrophils % 1 L Lymphocytes % (Manual) 2 L Abs Neuts (Manual) 23.8 H Potassium 3.5 L Glucose 190 H Calcium 11.1 H Total Bilirubin 1.4 H Alkaline Phosphatase 132 H Total Protein 9.2 H 10/14/19 18:13 Labs- All tests 24 hr 10/14/19 10/14/19 10/14/19 06:10 06:10 07:34 WBC 25.0 H RBC 6.15 H Hgb 18.9 H Hct 54.8 H MCV 89 MCH 30.8 MCHC 34.5 RDW 13.9 Plt Count 353 Lymph % (Auto) Not Reportable [place] % (Auto) Not Reportable Eos % (Auto) Not Reportable Baso % (Auto) Not Reportable Absolute Neuts (auto) Not Reportable Absolute Lymphs (auto) Not Reportable Absolute Monos (auto) Not Reportable Absolute Eos (auto) Not Reportable Absolute Basos (auto) Not Reportable Total Counted 100 Seg Neutrophils % Not Reportable Seg Neuts % (Manual) 94 H Band Neutrophils % 1 L Lymphocytes % (Manual) 2 L Monocytes % (Manual) 3 Eosinophils % (Manual) 0 Basophils % (Manual) 0 Abs Neuts (Manual) 23.8 H Abs Lymphs (Manual) 0.5 Abs Monocytes (Manual) 0.8 Absolute Eos (Manual) 0.0 Abs Basophils (Manual) 0.0 Platelet Comment ADEQUATE RBC Morph Comment NORMO-CYTIC/CHROMIC Sodium 139.3 Potassium 3.5 L Chloride 98 Carbon Dioxide 27 Anion Gap 14 BUN 10 Creatinine 0.80 Est GFR ( Amer) > 60 Est GFR (MDRD) Non-Af > 60 Glucose 190 H Calcium 11.1 H Total Bilirubin 1.4 H Direct Bilirubin 0.4 Neonat Total Bilirubin Not Reportable Neonat Direct Bilirubin Not Reportable Neonat Indirect Bili Not Reportable AST 39 ALT 22 Alkaline Phosphatase 132 H Troponin I 0.013 Total Protein 9.2 H Albumin 4.9 Lipase 37.9 Urine Color Urine Appearance Urine pH Ur Specific [place] Urine Protein Urine Glucose (UA) Urine Ketones Urine Blood Urine Nitrite Urine Bilirubin Urine Urobilinogen Ur Leukocyte Esterase Urine WBC (Auto) Urine RBC (Auto) U Hyaline Cast (Auto) Squamous Epi Cells Auto Urine Mucus (Auto) Urine Ascorbic Acid Urine Opiates Screen Urine Methadone Screen Ur Barbiturates Screen Ur Phencyclidine Scrn Ur Amphetamines Screen U Benzodiazepines Scrn Urine Cocaine Screen U Marijuana (THC) Screen 10/14/19 10/14/19 10/14/19 09:27 09:27 11:12 WBC RBC Hgb Hct MCV MCH MCHC RDW Plt Count Lymph % (Auto) [place] % (Auto) Eos % (Auto) Baso % (Auto) Absolute Neuts (auto) Absolute Lymphs (auto) Absolute Monos (auto) Absolute Eos (auto) Absolute Basos (auto) Total Counted Seg Neutrophils % Seg Neuts % (Manual) Band Neutrophils % Lymphocytes % (Manual) Monocytes % (Manual) Eosinophils % (Manual) Basophils % (Manual) Abs Neuts (Manual) Abs Lymphs (Manual) Abs Monocytes (Manual) Absolute Eos (Manual) Abs Basophils (Manual) Platelet Comment RBC Morph Comment Sodium Potassium Chloride Carbon Dioxide Anion Gap BUN Creatinine Est GFR ( Amer) Est GFR (MDRD) Non-Af Glucose Calcium Total Bilirubin Direct Bilirubin Neonat Total Bilirubin Neonat Direct Bilirubin Neonat Indirect Bili AST ALT Alkaline Phosphatase Troponin I Cancelled Total Protein Albumin Lipase Urine Color YELLOW Urine Appearance CLEAR Urine pH 8.0 Ur Specific [place] 1.033 Urine Protein NEGATIVE Urine Glucose (UA) NEGATIVE Urine Ketones NEGATIVE Urine Blood NEGATIVE Urine Nitrite NEGATIVE Urine Bilirubin NEGATIVE Urine Urobilinogen NEGATIVE Ur Leukocyte Esterase NEGATIVE Urine WBC (Auto) 0 Urine RBC (Auto) 1 U Hyaline Cast (Auto) 1 Squamous Epi Cells Auto <1 Urine Mucus (Auto) RARE Urine Ascorbic Acid NEGATIVE Urine Opiates Screen UNCONFIRMED POSITIVE Urine Methadone Screen NEGATIVE Ur Barbiturates Screen NEGATIVE Ur Phencyclidine Scrn NEGATIVE Ur Amphetamines Screen NEGATIVE U Benzodiazepines Scrn NEGATIVE Urine Cocaine Screen NEGATIVE U Marijuana (THC) Screen NEGATIVE 10/14/19 12:23 WBC RBC Hgb Hct MCV MCH MCHC RDW Plt Count Lymph % (Auto) [place] % (Auto) Eos % (Auto) Baso % (Auto) Absolute Neuts (auto) Absolute Lymphs (auto) Absolute Monos (auto) Absolute Eos (auto) Absolute Basos (auto) Total Counted Seg Neutrophils % Seg Neuts % (Manual) Band Neutrophils % Lymphocytes % (Manual) Monocytes % (Manual) Eosinophils % (Manual) Basophils % (Manual) Abs Neuts (Manual) Abs Lymphs (Manual) Abs Monocytes (Manual) Absolute Eos (Manual) Abs Basophils (Manual) Platelet Comment RBC Morph Comment Sodium Potassium Chloride Carbon Dioxide Anion Gap BUN Creatinine Est GFR ( Amer) Est GFR (MDRD) Non-Af Glucose Calcium Total Bilirubin Direct Bilirubin Neonat Total Bilirubin Neonat Direct Bilirubin Neonat Indirect Bili AST ALT Alkaline Phosphatase Troponin I 0.025 Total Protein Albumin Lipase Urine Color Urine Appearance Urine pH Ur Specific [place] Urine Protein Urine Glucose (UA) Urine Ketones Urine Blood Urine Nitrite Urine Bilirubin Urine Urobilinogen Ur Leukocyte Esterase Urine WBC (Auto) Urine RBC (Auto) U Hyaline Cast (Auto) Squamous Epi Cells Auto Urine Mucus (Auto) Urine Ascorbic Acid Urine Opiates Screen Urine Methadone Screen Ur Barbiturates Screen Ur Phencyclidine Scrn Ur Amphetamines Screen U Benzodiazepines Scrn Urine Cocaine Screen U Marijuana (THC) Screen - Diagnostic Test Radiology reviewed: Reports reviewed - EKG Interpretation by Me EKG shows normal: Sinus rhythm Rhythm: Arrthymia When compared to previous EKG there are: No significant change Additional EKG results interpreted by me: 10/14/19 13:55 QTc 462, DC interval 148, sinus arrhythmia, no acute ischemic changes Discharge - Discharge Clinical Impression: Opiate dependence, continuous, Intractable nausea and vomiting Abdominal pain Qualifiers: Abdominal location: epigastric Qualified Code(s): R10.13 - Epigastric pain Vomiting Qualifiers: Vomiting type: unspecified Vomiting Intractability: intractable Nausea pr esence: with nausea Qualified Code(s): R11.2 - Nausea with vomiting, unspecified Condition: Fair Disposition: ADMITTED INPATIENT Admitting Provider: César (Hospitalist) Unit Admitted: [facility]
--- NOTE | 2019-10-14 09:02 | RADIOLOGY REPORT (SQ) ---
EXAM DESCRIPTION: CT ABD/PELVIS WITH IV ONLY IMAGES COMPLETED DATE/TIME: 10/14/2019 8:43 am REASON FOR STUDY: mid/upper abd pain, leukocytosis COMPARISON: 05/26/2019 TECHNIQUE: CT scan of the abdomen and pelvis performed using helical scanning technique with dynamic intravenous contrast injection. No oral contrast. Images reviewed with lung, soft tissue, and bone windows. Reconstructed coronal and sagittal MPR images reviewed. Delayed images for evaluation of the urinary system also acquired. All images stored on PACS. All CT scanners at this facility use dose modulation, iterative reconstruction, and/or weight based d osing when appropriate to reduce radiation dose to as low as reasonably achievable (ALARA). [facility]: Dose Right [facility]: CareDose [facility]: Dose Right [facility]: Teradose 4D [facility]: [employer] CONTRAST TYPE AND DOSE: contrast/concentration: Isovue 350.00 mmol/ml; Total Contrast Delivered: 93. 0 ml; Total Saline Delivered: 52.1 ml RENAL FUNCTION: Creatinine 0.8 RADIATION DOSE: CT Rad equipment meets quality standard of care and radiation dose reduction techniq ues were employed. CTDIvol: 5.6 - 7.4 mGy. DLP: 723 mGy-cm.. LIMITATIONS: None. FINDINGS: LOWER CHEST: Coronary atherosclerosis. No other significant findings. No nodules or infil trates. LIVER: Hepatic steatosis. No focal lesions. No intrahepatic ductal dilation. SPLEEN: Normal size. No focal lesions. PANCREAS: No masses. No significant calcifications. No adjacent inflammation or peripancreatic fluid collections. Pancreatic duct not dilated. GALLBLADDER: Surgically absent. ADRENAL GLANDS: No significant masses or asymmetry. RIGHT KIDNEY AND URETER: No discrete solid masses. Fatty attenuation area along the posterior interp olar region possibly cortical scar with adjacent calcifications possibly nonobstructing stones versus cortical calcifications. Findings stable from prior exam. Stable additional subcentimeter hypoden se lesion, likely cyst but difficult to completely characterize. No hydronephrosis. LEFT KIDNEY AND URETER: No solid masses. No significant calcifications. No hydronephrosis or hydr oureter. AORTA AND VESSELS: Aortoiliac atherosclerosis. There is focal aneurysmal dilation of the infrarenal abdominal aorta measuring up to 3.9 x 3.0 cm (series 3, image 41), cyst stable. There is significant mural thrombus in the left lateral wall. Celiac, SMA, bilateral renals are patent. [id number] e narrowing at the celiac axis from the median arcuate ligament. SOMMER is opacified. RETROPERITONEUM: No retroperitoneal adenopathy, hemorrhage or masses. BOWEL AND PERITONEAL CAVITY: No masses or inflammatory changes. No free fluid or peritoneal masses. APPENDIX: Normal. PELVIS: No mass. No free fluid. Normal bladder. ABDOMINAL WALL: Small fat containing left inguinal hernia. Small fat containing umbilical hernia. N o discrete solid masses. BONES: No acute bony abnormality. No suspicious osseous lesions. Lower lumbar facet arthropathy and spondylosis. OTHER: No other significant finding. IMPRESSION: 1. Hepatic steatosis. 2. No other evidence of acute intra-abdominal/pelvic process. 3. Stable infrarenal abdominal aortic aneurysm measuring up to 3.9 cm. Follow-up as below. 4. Stable additional incidental findings as above. COMMENT: AAA Size: Follow-up Recommendation 3.5-3.9 cm Every 12 months *Based upon the Society for Vascular Surgery Guidelines: J Vasc Surg. 2009 Oct;50(4 Suppl):S2-49 *For aortas of maximum diameter of 2.6-2.9 cm meeting the criteria for AAA (?1.5 x proximal normal se gment) TECHNICAL DOCUMENTATION: JOB ID: [id number] Quality ID # [id number]: Final reports with documentation of one or more dose reduction techniques (e.g., Au tomated exposure control, adjustment of the mA and/or kV according to patient size, use of iterative reconstruction technique) 2010 [employer]- All Rights Reserved Reading location - IP/workstation name: [email or web address]
[2019-10-14] MEDS ORDERED: LIDOCAINE 2% VISCOUS SOLN 15 ML UDCUP PO ONE ×2 (09:33→11:25)
[2019-10-14] MEDS ORDERED: MAG HYDROX/AL HYDROX/SIMETH SUSP 30 ML UDCUP PO ONE ×2 (09:33→11:24)
[2019-10-14 10:02] LABS: APPEARANCE,URINE CLEAR; BILIRUBIN,URINE NEGATIVE (NEGATIVE); COLOR,URINE YELLOW; GLUCOSE, URINE NEGATIVE (NEGATIVE); KETONES,URINE NEGATIVE (NEGATIVE); LEUKOCYTE ESTERASE,URINE NEGATIVE (NEGATIVE); NITRITE,URINE NEGATIVE (NEGATIVE); PROTEIN,URINE NEGATIVE (NEGATIVE); URINE SPECIFIC GRAVITY 1.033; UROBILINOGEN,URINE NEGATIVE mg/dL (<2.0)
[2019-10-14 10:15] LABS: URINE AMPHETAMINES SCREEN NEGATIVE; URINE BARBITURATES SCREEN NEGATIVE; URINE BENZODIAZEPINES SCREEN NEGATIVE; URINE COCAINE SCREEN NEGATIVE; URINE MARIJUANA (THC) SCREEN NEGATIVE; URINE METHADONE SCREEN NEGATIVE; URINE PHENCYCLIDINE SCREEN NEGATIVE
--- NOTE | 2019-10-14 10:36 | EKG REPORT ---
SEVERITY:- ABNORMAL ECG - SINUS ARRHYTHMIA, RATE 63-93 LEFT ATRIAL ABNORMALITY U WAVES NOTED R/O HYPOKALEMIA. : Confirmed by: Fausto Guerra MD 14-Oct-2019 10:36:22
[2019-10-14] MEDS ORDERED: LISINOPRIL 10 MG TABLET PO ONE (10:37)
[2019-10-14] MEDS ORDERED: METOPROLOL TARTRATE PF/INJ 5 MG/5 ML SDV IV ONE ×3 (10:37→12:48)
[2019-10-14] MEDS ORDERED: HYDROCHLOROTHIAZIDE 25 MG TABLET PO ONE (10:37)
[2019-10-14] MEDS ORDERED: PANTOPRAZOLE SODIUM 40 MG VIAL IV ONE (11:26)
--- NOTE | 2019-10-14 13:56 | PDOC CRITICAL CARE PROG REPORT ---
General Date:: 10/14/19 Resuscitation Status: Full Code Events in the past 12 to 24 Hours:: Abdominal pain likely from gastritis. HTN Review of systems relevant to events:: GI, CV Reason for ICU Addmission:: Evaluation - Medications: Medications reviewed and adjusted accordingly: Yes Vasopressors:: None Sedation:: None Physical Exam Vital Signs: Temp Pulse Resp BP Pulse Ox 98.1 F 18 215/112 H 96 10/14/19 06:14 10/14/19 13:15 10/14/19 13:15 10/14/19 13:15 Intake & Output 10/13/19 10/14/19 10/15/19 06:59 06:59 06:59 Intake Total 1000 Balance 1000 Weight 81.6 kg Weight/Height Weight 81.6 kg Height 5 ft 4 in General appearance: PRESENT: mild distress, thin Head exam: PRESENT: atraumatic, normocephalic Eye exam: PRESENT: conjunctiva pink, EOMI, PERRLA. ABSENT: scleral icterus Ear exam: PRESENT: normal external ear exam Mouth exam: PRESENT: moist, tongue midline Respiratory exam: PRESENT: clear to auscultation pedro. ABSENT: rales, rhonchi, wheezes Cardiovascular exam: PRESENT: RRR. ABSENT: diastolic murmur, rubs, systolic murmur GI/Abdominal exam: PRESENT: normal bowel sounds, soft, tenderness - Pain in upper epigastric region even on light palpation. No peritoneal signs.. ABSENT: distended, guarding, mass, organolmegaly, rebound Rectal exam: PRESENT: deferred Extremities exam: PRESENT: full ROM. ABSENT: calf tenderness, clubbing, pedal edema Neurological exam: PRESENT: alert, awake, oriented to person, oriented to place, oriented to time, oriented to situation, CN II-XII grossly intact. ABSENT: motor sensory deficit Psychiatric exam: PRESENT: appropriate affect, normal mood. ABSENT: homicidal ideation, suicidal ideation Skin exam: PRESENT: dry, intact, warm. ABSENT: cyanosis, rash Laboratory/Radiographs Laboratory Results: 10/14/19 06:10 10/14/19 06:10 10/14/19 10/14/19 10/14/19 06:10 06:10 09:27 WBC 25.0 H RBC 6.15 H Hgb 18.9 H Hct 54.8 H MCV 89 MCH 30.8 MCHC 34.5 RDW 13.9 Plt Count 353 Seg Neutrophils % Not Reportable Sodium 139.3 Potassium 3.5 L Chloride 98 Carbon Dioxide 27 Anion Gap 14 BUN 10 Creatinine 0.80 Est GFR ( Amer) > 60 Glucose 190 H Calcium 11.1 H Total Bilirubin 1.4 H AST 39 Alkaline Phosphatase 132 H Total Protein 9.2 H Albumin 4.9 Lipase 37.9 Urine Color YELLOW Urine Appearance CLEAR Urine pH 8.0 Ur Specific [place] 1.033 Urine Protein NEGATIVE Urine Glucose (UA) NEGATIVE Urine Ketones NEGATIVE Urine Blood NEGATIVE Urine Nitrite NEGATIVE Ur Leukocyte Esterase NEGATIVE Urine WBC (Auto) 0 Urine RBC (Auto) 1 10/14/19 10/14/19 10/14/19 07:34 11:12 12:23 Troponin I 0.013 Cancelled 0.025 Impressions: Chest X-Ray 10/14/19 07:17 IMPRESSION: NO ACUTE RADIOGRAPHIC FINDING IN THE CHEST. Abdomen/Pelvis CT 10/14/19 07:50 IMPRESSION: 1. Hepatic steatosis. 2. No other evidence of acute intra-abdominal/pelvic process. 3. Stable infrarenal abdominal aortic aneurysm measuring up to 3.9 cm. Follow- up as below. 4. Stable additional incidental findings as above. All labs, radiographs, diagnostic studies and EKGs were personally reviewed: Yes In addition, reports of radiographic and diagnostic studies were read: Yes Assessment and Plan - Diagnosis (1) HTN (hypertension) with goal to be determined Is this a current diagnosis for this admission?: Yes Plan: This patient's BP has been over 200. However he has been in fairly constant pain in epigastrium. He has had this before with pain. When the pain is well controlled my opinion is that his BP will be better. Currently he has no symptoms. No confusion slight headache gaone, SOB form pain no chest pain. In short nothing to suggest HTN urgency or emergency just a high BP. He does not need either a drip or ICU p[lacement. I would aim for BP under 200. This has been achieved with lopressor, labetolol may also work. Paradoxically some IV fluid may help as he appears dry and IVF may relax his vasculature. (2) Abdominal pain Qualifiers: Abdominal location: epigastric Qualified Code(s): R10.13 - Epigastric pain Is this a current diagnosis for this admission?: Yes Plan: He has had this before with severe gastritis. PPI and carafate may help. PPI give IV due to nausea. For vomiting zofran can be dosed to 32 mg every 6-8 hours. GB surgically absent. CT is benign of abd/pelvis. (3) Intractable nausea and vomiting Is this a current diagnosis for this admission?: Yes Plan: He likely needs a higher dose of zofran. This also is increasing his BP. (4) Opiate dependence, continuous Is this a current diagnosis for this admission?: Yes Plan: He takes MSO4 15mg BID and has had a lot but obviously not enough narcotics yet. Plan Summary: PPI, Carafate, IVF and liberal use of narcotics and beta blockers to blunt the catecholamine response to pain. Critical Time Critical Time (minutes): 30 Level of Care: IMCU Anticipated discharge: Home Within: Other -: 1. The care of a critical patient is a dynamic process. This note is a sales representative rural power synopsis but static in nature. The timeframe for treatments given in order is not necessarily the actual time these treatments may have been done. 2. This patient requires critical care secondary to ongoing requirements for therapy not offered or safe outside the critical care environment. Transfer to a lower level of care will result in altered life or limb morbidity and mortality. 3. Multidisciplinary rounds completed. 4. ABCDE bundle addressed.
[2019-10-14] MEDS ORDERED: MORPHINE SULFATE IR 15 MG TABLET PO PRN (14:51)
[2019-10-14] MEDS ORDERED: IPRATROPIUM/ALBUTEROL 0.5-2.5 MG/3 ML AMPUL NEB PRN (14:52)
[2019-10-14] MEDS ORDERED: METOPROLOL TARTRATE PF/INJ 5 MG/5 ML SDV IV PRN (14:56)
[2019-10-14] MEDS: PROMETHAZINE HCL INJ 25 MG/1 ML VIAL IV PRN ×2 (17:00→23:40)
[2019-10-14] MEDS ORDERED: CLONIDINE 0.3 MG/24 HR PATCH.TDWK TD SCH (17:45)
--- NOTE | 2019-10-14 18:31 | PDOC H&P ---
History of Present Illness Admission Date/PCP: 10/14/19 14:01 Patient complains of: Nausea and vomiting History of Present Illness: LIZ PAGE JR is a 58 year old male with a past medical history of opiate dependent chronic pain, hypertension, and tobacco use with continuous use who presented to the emergency department today with a complaint of 3 days of nausea and vomiting, no longer tolerating p.o. fluids, and severe abdominal pain. Patient reports that he has been unable to hold down any of his medications for the past 3 days. Evaluation in the emergency department found hypertensive urgency (BP 210/114), tachycardia (110), leukocytosis (WBCs 25), unremarkable chemistry other than a slightly elevated calcium (11.1) negative urinalysis, UDS positive for opiates, EKG showing sinus arrhythmia, benign chest x-ray, and an abdominal/pelvic CT not ed to have hepatic steatosis without evidence of acute findings. The emergency department provider provided multiple doses of IV hydralazine with minimal and brief effect on blood pressure but resulting in reflex tachycardia, IV lopressor was provided with slight improvement. Wool Sorter consultation was obtained; recommended continuing PRN IV beta-blockers and monitoring on IMC. Therefore, patient is referred to the hospitalist service for admission management of the above-stated positive findings. Past Medical History Cardiac Medical History: Reports: Hypertension Pulmonary Medical History: Reports: None EENT Medical History: Reports: None Endocrine Medical History: Reports: None Renal/ Medical History: Reports: None Malignancy Medical History: Reports: None GI Medical History: Reports: None Musculoskeltal Medical History: Reports: None Skin Medical History: Reports: None Psychiatric Medical History: Reports: Tobacco Dependency Denies: Depression Traumatic Medical History: Reports: None Hematology: Reports: None Infectious Medical History: Reports: None Past Surgical History Past Surgical History: Reports: Cholecystectomy Social History Information Source: Patient Lives with: Alone Smoking Status: Current Every Day Smoker Cigarettes Packs Per Day: 1.5 Frequency of Alcohol Use: None Hx Recreational Drug Use: No - denies Drugs: Marijuana Hx Prescription Drug Abuse: No - Advance Directive Resuscitation Status: Full Code Family History Family History: CAD, DM Parental Family History Reviewed: Yes Children Family History Reviewed: Yes Sibling(s) Family History Reviewed.: Yes Medication/Allergy Home Medications: Morphine Sulfate [Morphine Ir 15 mg Tablet] 15 mg PO DAILYP PRN MDD 2 TABS 11/13/17 Clonidine HCl [Catapres 0.2 mg Tablet] 0.3 mg PO Q8 30 Days #90 tab 05/29/19 Morphine Sulfate [Morphine Sulfate ER] 30 mg PO Q12 10/14/19 Allergies/Adverse Reactions: No Known Allergies Allergy (Verified 10/14/19 06:11) Review of Systems Constitutional: ABSENT: chills, fever(s), headache(s), weight gain, weight loss Eyes: ABSENT: visual disturbances Ears: ABSENT: hearing changes Cardiovascular: ABSENT: chest pain, dyspnea on exertion, edema, orthropnea, palpitations Respiratory: ABSENT: cough, hemoptysis Gastrointestinal: PRESENT: abdominal pain, nausea, vomiting. ABSENT: c onstipation, diarrhea, hematemesis, hematochezia Genitourinary: ABSENT: dysuria, hematuria Musculoskeletal: ABSENT: joint swelling Integumentary: ABSENT: rash, wounds Neurological: ABSENT: abnormal gait, abnormal speech, confusion, dizziness, focal weakness, syncope Psychiatric: ABSENT: anxiety, depression, homidical ideation, suicidal ideation Endocrine: ABSENT: cold intolerance, heat intolerance, polydipsia, polyuria Hematologic/Lymphatic: ABSENT: easy bleeding, easy bruising Physical Exam Vital Signs: Temp Pulse Resp BP Pulse Ox 98.1 F 17 161/104 H 96 10/14/19 06:14 10/14/19 14:15 10/14/19 14:15 10/14/19 13:15 Intake & Output 10/13/19 10/14/19 10/15/19 06:59 06:59 06:59 Intake Total 1000 Balance 1000 Weight 81.6 kg General appearance: PRESENT: no acute distress, disheveled, well-developed, well-nourished Head exam: PRESENT: atraumatic, normocephalic Eye exam: PRESENT: conjunctiva pink, EOMI, PERRLA. ABSENT: scleral icterus Mouth exam: PRESENT: moist, tongue midline Teeth exam: PRESENT: poor dentation Respiratory exam: PRESENT: clear to auscultation pedro, symmetrical, unlabored. ABSENT: rales, rhonchi, wheezes Cardiovascular exam: PRESENT: RRR, +S1, +S2, tachycardia. ABSENT: diastolic murmur, rubs, systolic murmur Vascular exam: PRESENT: normal capillary refill GI/Abdominal exam: PRESENT: normal bowel sounds, soft. ABSENT: distended, guarding, mass, organolmegaly, rebound, tenderness Rectal exam: PRESENT: deferred Extremities exam: PRESENT: full ROM. ABSENT: calf tenderness, clubbing, pedal edema Musculoskeletal exam: PRESENT: ambulatory Neurological exam: PRESENT: alert, awake, oriented to person, oriented to place, oriented to time, oriented to situation, CN II-XII grossly intact. ABSENT: motor sensory deficit Psychiatric exam: PRESENT: appropriate affect, normal mood. ABSENT: homicidal ideation, suicidal ideation Skin exam: PRESENT: dry, intact, warm. ABSENT: cyanosis, rash Results Laboratory Results: 10/14/19 06:10 10/14/19 06:10 10/14/19 10/14/19 10/14/19 06:10 06:10 09:27 WBC 25.0 H RBC 6.15 H Hgb 18.9 H Hct 54.8 H MCV 89 MCH 30.8 MCHC 34.5 RDW 13.9 Plt Count 353 Seg Neutrophils % Not Reportable Sodium 139.3 Potassium 3.5 L Chloride 98 Carbon Dioxide 27 Anion Gap 14 BUN 10 Creatinine 0.80 Est GFR ( Amer) > 60 Glucose 190 H Calcium 11.1 H Total Bilirubin 1.4 H AST 39 Alkaline Phosphatase 132 H Total Protein 9.2 H Albumin 4.9 Lipase 37.9 Urine Color YELLOW Urine Appearance CLEAR Urine pH 8.0 Ur Specific [place] 1.033 Urine Protein NEGATIVE Urine Glucose (UA) NEGATIVE Urine Ketones NEGATIVE Urine Blood NEGATIVE Urine Nitrite NEGATIVE Ur Leukocyte Esterase NEGATIVE Urine WBC (Auto) 0 Urine RBC (Auto) 1 10/14/19 10/14/19 10/14/19 07:34 11:12 12:23 Troponin I 0.013 Cancelled 0.025 Impressions: Chest X-Ray 10/14/19 07:17 IMPRESSION: NO ACUTE RADIOGRAPHIC FINDING IN THE CHEST. Abdomen/Pelvis CT 10/14/19 07:50 IMPRESSION: 1. Hepatic steatosis. 2. No other evidence of acute intra-abdominal/pelvic process. 3. Stable infrarenal abdominal aortic aneurysm measuring up to 3.9 cm. Follow- up as below. 4. Stable additional incidental findings as above. Assessment and Plan - Diagnosis (1) Hypertensive urgency Is this a current diagnosis for this admission?: Yes Plan: Patient is admitted to [facility] on continuous cardiac telemetry. As he is not tolerating p.o. medications at this time, he is placed on a transdermal clonidine patch at 0.3 mg/24-hour. Will provide IV Lopressor as needed for blood pressure control. Avoid hydralazine if possible due to reflex tachycardia. Rehydrate with IV fluids. Resume home opiate medications; judicious use of IV narcotics if continues to not tolerate p.o. (2) Abdominal pain Qualifiers: Abdominal location: epigastric Qualified Code(s): R10.13 - Epigastric pain Is this a current diagnosis for this admission?: Yes Plan: He has had this before with severe gastritis. Twice daily IV protonix. Carafate before meals and at bedtime. Clear liquids for now. (3) Intractable nausea and vomiting Is this a current diagnosis for this admission?: Yes Plan: Continue IV fluids. Antiemetics as needed. Clear liquid diet. (4) Opiate dependence, continuous Is this a current diagnosis for this admission?: Yes Plan: Patient received 10 mg of IV morphine and 5 mg of IV Dilaudid while still in the emergency department. He takes MS Contin 30 mg twice daily and morphine IR 15 mg once daily at home. His total IV Dilaudid and morphine doses so far this admission should be approaching 120 morphine equivalents. Will hold on additional scheduled/as needed narcotic doses at this time. Resume home dose Ms-Contin and Morphine IR. - Time Time Spent with patient: 35 or more minutes Medications reviewed and adjusted accordingly: Yes Anticipated discharge: Home Within: within 24 hours
[2019-10-14] MEDS: ONDANSETRON HCL INJ/PF 4 MG/2 ML SDV IV PRN (19:53)
[2019-10-14] MEDS: HYDRALAZINE HCL INJ/PF 20 MG/1 ML SDV IV PRN (20:57)
[2019-10-14] MEDS: MORPHINE SULFATE 10 MG/ML INJ IV PRN (21:59)
[2019-10-14] MEDS: HEPARIN SOD (PORCINE) 5,000 UNIT/ML 1 ML VIAL SUBCUT SCH (22:00)
[2019-10-14] MEDS ORDERED: CLONIDINE HCL 0.2 MG TABLET PO SCH (22:00)
[2019-10-14] MEDS ORDERED: (PENDING PHARMACY ID) (Morphine Sulfate [Morphine Sulfate Er] 30 MG) PO SCH (22:00)
[2019-10-14] MEDS: SUCRALFATE 1 GM TABLET PO SCH (22:01)
[2019-10-14] MEDS: PANTOPRAZOLE SODIUM 40 MG VIAL IV SCH (22:01)
[2019-10-14] MEDS: MORPHINE SULFATE SR 30 MG TABLET PO SCH (22:02)
[2019-10-14] MEDS: NORMAL SALINE 1000 ML 1,000 ML IV PRN (23:03)
[2019-10-14] MEDS: METOPROLOL TARTRATE PF/INJ 5 MG/5 ML SDV IV PRN (23:05)
[2019-10-15] MEDS: MORPHINE SULFATE 10 MG/ML INJ IV PRN ×8 (00:49→23:50)
[2019-10-15] MEDS: HYDRALAZINE HCL INJ/PF 20 MG/1 ML SDV IV PRN ×2 (01:47→11:25)
[2019-10-15] MEDS: HEPARIN SOD (PORCINE) 5,000 UNIT/ML 1 ML VIAL SUBCUT SCH (05:06)
[2019-10-15] MEDS: PROMETHAZINE HCL INJ 25 MG/1 ML VIAL IV PRN ×4 (05:07→22:07)
[2019-10-15] MEDS: NORMAL SALINE 1000 ML 1,000 ML IV PRN (06:00)
[2019-10-15 06:33] LABS: ANION GAP 8 (5-19); BLOOD UREA NITROGEN 19 mg/dL (7-20); CALCIUM 9.1 mg/dL (8.4-10.2); CARBON DIOXIDE 26 mmol/L (22-30); CHLORIDE 102 mmol/L (98-107); GLUCOSE 131 mg/dL (75-110)
[2019-10-15 06:35] LABS: POTASSIUM 3.1 mmol/L (3.6-5.0)
[2019-10-15 06:58] LABS: HEMATOCRIT 48.5 % (37.9-51.0); MEAN CORPUSCULAR HGB CONC 34.7 g/dL (32.0-36.0); MEAN CORPUSCULAR VOLUME 89 fl (80-97); PLATELET COUNT 263 10^3/uL (150-450); RED BLOOD COUNT 5.42 10^6/uL (4.35-5.55); WHITE BLOOD COUNT 24.4 10^3/uL (4.0-10.5)
[2019-10-15 07:19] LABS: HEMOGLOBIN 16.8 g/dL (13.5-17.0)
[2019-10-15] MEDS: SUCRALFATE 1 GM TABLET PO SCH ×4 (07:50→22:07)
[2019-10-15] MEDS: METOPROLOL TARTRATE PF/INJ 5 MG/5 ML SDV IV PRN (07:51)
[2019-10-15] MEDS: ONDANSETRON HCL INJ/PF 4 MG/2 ML SDV IV PRN ×2 (07:51→14:09)
[2019-10-15] MEDS: MORPHINE SULFATE SR 30 MG TABLET PO SCH ×2 (10:46→22:07)
[2019-10-15] MEDS: NICOTINE 21 MG/24 HR PATCH.TD24 TD SCH (10:47)
[2019-10-15] MEDS: PANTOPRAZOLE SODIUM 40 MG VIAL IV SCH ×2 (10:47→22:08)
--- NOTE | 2019-10-15 12:34 | PDOC PROGRESS REPORT ---
Subjective Progress Note for:: 10/15/19 Subjective:: LIZ PAGE JR is a 58 year old male with a past medical history of opiate dependent chronic pain, hypertension, and tobacco use with continuous use who presented to the emergency department today with a complaint of 3 days of nausea and vomiting, no longer tolerating p.o. fluids, and severe abdominal pain. Patient reports that he has been unable to hold down any of his medications for the past 3 days. Evaluation in the emergency department found hypertensive urgency (BP 210/114), tachycardia (110), leukocytosis (WBCs 25), unremarkable chemistry other than a slightly elevated calcium (11.1) negative urinalysis, UDS positive for opiates, EKG showing sinus arrhythmia, benign chest x-ray, and an abdominal/pelvic CT noted to have hepatic steatosis without evidence of acute findings. The emergency department provider provided multiple doses of IV hydralazine with minimal and brief effect on blood pressure but resulting in reflex tachycardia, IV lopressor was provided with slight improvement. Multiple Launch Rocket System Crewmember consultation was obtained; recommended continuing PRN IV beta-blockers and monitoring on IMC. Therefore, patient is referred to the hospitalist service for admission management of the above-stated positive findings. 10/15/2019. Patient still complaining of nausea versus abdominal pain, otherwise denies any fever, chills, chest pain, shortness of breath, diarrhea, constipation or any urinary symptoms. Reason For Visit: HYPERTENSIVE URGENCY Physical Exam Vital Signs: Temp Pulse Resp BP Pulse Ox 97.9 F 139 H 16 187/112 H 95 10/15/19 11:20 10/15/19 12:23 10/15/19 12:23 10/15/19 11:20 10/15/19 12:23 Intake & Output 10/14/19 10/15/19 10/16/19 06:59 06:59 06:59 Intake Total 3169 Output Total 350 Balance 2819 Weight 81.6 kg 68.3 kg 68.3 kg General appearance: PRESENT: no acute distress, well-developed, well-nourished Head exam: PRESENT: atraumatic, normocephalic Respiratory exam: PRESENT: clear to auscultation pedro. ABSENT: rales, rhonchi, wheezes Cardiovascular exam: PRESENT: RRR, tachycardia. ABSENT: diastolic murmur, rubs, systolic murmur GI/Abdominal exam: PRESENT: guarding, normal bowel sounds, soft, tenderness - Epigastric. ABSENT: distended, mass, organolmegaly, rebound Neurological exam: PRESENT: alert, awake, oriented to person, oriented to place, oriented to time, oriented to situation, CN II-XII grossly intact. ABSENT: motor sensory deficit Skin exam: PRESENT: dry, intact, warm. ABSENT: cyanosis, rash Results Laboratory Results: 10/15/19 05:47 10/15/19 05:47 10/15/19 10/15/19 05:47 05:47 WBC 24.4 H RBC 5.42 Hgb 16.8 D Hct 48.5 MCV 89 MCH 31.0 MCHC 34.7 RDW 14.0 Plt Count 263 Sodium 136.4 L Potassium 3.1 L Chloride 102 Carbon Dioxide 26 Anion Gap 8 BUN 19 Creatinine 0.79 Est GFR ( Amer) > 60 Glucose 131 H Calcium 9.1 10/14/19 10/14/19 10/14/19 07:34 11:12 12:23 Troponin I 0.013 Cancelled 0.025 Impressions: Chest X-Ray 10/14/19 07:17 IMPRESSION: NO ACUTE RADIOGRAPHIC FINDING IN THE CHEST. Abdomen/Pelvis CT 10/14/19 07:50 IMPRESSION: 1. Hepatic steatosis. 2. No other evidence of acute intra-abdominal/pelvic process. 3. Stable infrarenal abdominal aortic aneurysm measuring up to 3.9 cm. Follow- up as below. 4. Stable additional incidental findings as above. Assessment and Plan - Diagnosis (1) Hypertensive urgency Is this a current diagnosis for this admission?: Yes Plan: Improving. Not optimized. No history of cocaine abuse. We will start on Coreg 25 mg p.o. twice daily and lisinopril 20 mg p.o. daily. IV PRN hydralazine. IV PRN metoprolol. Adjust meds as needed. Outpatient PCP follow-up. (2) Intractable nausea and vomiting Is this a current diagnosis for this admission?: Yes Plan: Denies any vomiting. Still complaining of nausea. Not sure if patient has cyclic vomiting or this is due to his chronic opiate dependency. Continue PRN antiemetics. D5NS maintenance fluid. Clear liquid diet. Advance as tolerated. (3) Opiate dependence, continuous Is this a current diagnosis for this admission?: Yes Plan: Home meds are MS Contin 30 mg twice daily and morphine IR 15 mg once daily at home. Resume home dose Ms-Contin and Morphine IR. Monitor for respiratory depression. Outpatient PCP and pain management follow-up. (4) Abdominal pain Qualifiers: Abdominal location: epigastric Qualified Code(s): R10.13 - Epigastric pain Is this a current diagnosis for this admission?: Yes Plan: He has had this before with severe gastritis. CT abdomen pelvis negative for any acute change except for hepatic steatosis. IV Protonix daily. Carafate before meals and at bedtime. Clear liquid diet, advance as tolerated.
[2019-10-15] MEDS ORDERED: DEXTROSE 5%-NORMAL SALINE 1,000 ML IV PRN (12:36)
[2019-10-15] MEDS ORDERED: CARVEDILOL 12.5 MG TABLET PO SCH (13:00)
[2019-10-15] MEDS: CARVEDILOL 12.5 MG TABLET PO SCH ×2 (13:17→22:07)
[2019-10-15] MEDS: LISINOPRIL 10 MG TABLET PO SCH (13:17)
[2019-10-15] MEDS: POTASSI CL 20 MEQ/NS 1L 1,000 ML IV PRN (13:18)
[2019-10-15] MEDS: ACETAMINOPHEN 325 MG TABLET PO PRN (19:38)
[2019-10-16] MEDS: MORPHINE SULFATE 10 MG/ML INJ IV PRN ×3 (02:01→19:51)
[2019-10-16] MEDS: PROMETHAZINE HCL INJ 25 MG/1 ML VIAL IV PRN ×2 (02:06→19:50)
[2019-10-16] MEDS: POTASSI CL 20 MEQ/NS 1L 1,000 ML IV PRN ×2 (03:18→18:54)
[2019-10-16 05:43] LABS: ABSOLUTE BASOPHILS # (AUTO) 0.1 10^3/uL (0.0-0.2); ABSOLUTE LYMPHOCYTES (AUTO) 2.1 10^3/uL (0.5-4.7); ABSOLUTE MONOCYTES (AUTO) 0.8 10^3/uL (0.1-1.4); ABSOLUTE NEUT (AUTO) 6.5 10^3/uL (1.7-8.2); BASOPHILS % (AUTO) 1.1 % (0-2); EOSINOPHILS % (AUTO) 0.3 % (0-6); HEMATOCRIT 39.2 % (37.9-51.0); LYMPHOCYTES % (AUTO) 21.9 % (13-45); MEAN CORPUSCULAR HEMOGLOBIN 31.2 pg (27.0-33.4); MEAN CORPUSCULAR HGB CONC 34.6 g/dL (32.0-36.0); MEAN CORPUSCULAR VOLUME 90 fl (80-97); MONOCYTES % (AUTO) 8.7 % (3-13); PLATELET COUNT 217 10^3/uL (150-450); RED BLOOD COUNT 4.34 10^6/uL (4.35-5.55); TOTAL CELLS COUNTED % (AUTO) 100 %; WHITE BLOOD COUNT 9.5 10^3/uL (4.0-10.5)
[2019-10-16 06:05] LABS: ANION GAP 6 (5-19); BLOOD UREA NITROGEN 15 mg/dL (7-20); CALCIUM 8.8 mg/dL (8.4-10.2); CARBON DIOXIDE 26 mmol/L (22-30); CHLORIDE 103 mmol/L (98-107); GLUCOSE 88 mg/dL (75-110); POTASSIUM 3.3 mmol/L (3.6-5.0)
[2019-10-16 06:14] LABS: HEMOGLOBIN 13.6 g/dL (13.5-17.0)
[2019-10-16 06:17] LABS: FREE T4 (FREE THYROXINE) 0.83 ng/dL (0.78-2.19)
[2019-10-16 06:31] LABS: THYROID STIMULATING HORMONE 2.94 uIU/mL (0.47-4.68)
[2019-10-16] MEDS: SUCRALFATE 1 GM TABLET PO SCH ×4 (07:52→22:22)
[2019-10-16] MEDS ORDERED: POTASSIUM CHLORIDE 10 MEQ TABLET.ER PO ONE (08:00)
[2019-10-16] MEDS: MORPHINE SULFATE SR 30 MG TABLET PO SCH ×2 (09:26→22:22)
[2019-10-16] MEDS: LISINOPRIL 10 MG TABLET PO SCH (09:26)
[2019-10-16] MEDS: CARVEDILOL 12.5 MG TABLET PO SCH ×2 (09:27→22:22)
[2019-10-16] MEDS: ENOXAPARIN SODIUM INJ 40 MG/0.4 ML DISP.SYRIN SUBCUT SCH (09:28)
[2019-10-16] MEDS: NICOTINE 21 MG/24 HR PATCH.TD24 TD SCH (09:29)
[2019-10-16] MEDS: ONDANSETRON HCL INJ/PF 4 MG/2 ML SDV IV PRN ×2 (09:29→18:41)
[2019-10-16] MEDS: PANTOPRAZOLE SODIUM 40 MG VIAL IV SCH ×2 (09:29→22:23)
--- NOTE | 2019-10-16 17:27 | PDOC PROGRESS REPORT ---
Subjective Progress Note for:: 10/16/19 Subjective:: LIZ PAGE JR is a 58 year old male with a past medical history of opiate dependent chronic pain, hypertension, and tobacco use with continuous use who presented to the emergency department today with a complaint of 3 days of nausea and vomiting, no longer tolerating p.o. fluids, and severe abdominal pain. Patient reports that he has been unable to hold down any of his medications for the past 3 days. Evaluation in the emergency department found hypertensive urgency (BP 210/114), tachycardia (110), leukocytosis (WBCs 25), unremarkable chemistry other than a slightly elevated calcium (11.1) negative urinalysis, UDS positive for opiates, EKG showing sinus arrhythmia, benign chest x-ray, and an abdominal/pelvic CT noted to have hepatic steatosis without evidence of acute findings. The emergency department provider provided multiple doses of IV hydralazine with minimal and brief effect on blood pressure but resulting in reflex tachycardia, IV lopressor was provided with slight improvement. Oil Well Service Operator Helper consultation was obtained; recommended continuing PRN IV beta-blockers and monitoring on IMC. Therefore, patient is referred to the hospitalist service for admission management of the above-stated positive findings. 10/15/2019. Patient still complaining of nausea versus abdominal pain, otherwise denies any fever, chills, chest pain, shortness of breath, diarrhea, constipation or any urinary symptoms. 10/16/2019. No acute events overnight. Patient has significant improvement of his blood pressure, abdominal pain improving, p.o. tolerant, denies any fever, chills, nausea, vomiting, diarrhea, constipation or any urinary symptoms. Possible discharge home tomorrow. Reason For Visit: HYPERTENSIVE URGENCY Physical Exam Vital Signs: Temp Pulse Resp BP Pulse Ox 97.8 F 71 17 154/86 H 97 10/16/19 15:51 10/16/19 16:22 10/16/19 16:22 10/16/19 15:51 10/16/19 15:51 Intake & Output 10/15/19 10/16/19 10/17/19 06:59 06:59 06:59 Intake Total 3169 1598 Output Total 350 950 Balance 2819 648 Weight 68.3 kg 69.6 kg General appearance: PRESENT: no acute distress, well-developed, well-nourished Head exam: PRESENT: atraumatic, normocephalic Respiratory exam: PRESENT: clear to auscultation pedro. ABSENT: rales, rhonchi, wheezes Cardiovascular exam: PRESENT: RRR. ABSENT: diastolic murmur, rubs, systolic murmur GI/Abdominal exam: PRESENT: normal bowel sounds, soft, tenderness. ABSENT: distended, guarding, mass, organolmegaly, rebound Extremities exam: PRESENT: full ROM. ABSENT: calf tenderness, clubbing, pedal edema Neurological exam: PRESENT: alert, awake, oriented to person, oriented to place, oriented to time, oriented to situation, CN II-XII grossly intact. ABSENT: motor sensory deficit Results Laboratory Results: 10/16/19 05:17 10/16/19 05:17 10/16/19 10/16/19 10/16/19 05:17 05:17 05:17 WBC 9.5 RBC 4.34 L Hgb 13.6 D Hct 39.2 MCV 90 MCH 31.2 MCHC 34.6 RDW 14.0 Plt Count 217 Seg Neutrophils % 68.0 Sodium 135.4 L Potassium 3.3 L Chloride 103 Carbon Dioxide 26 Anion Gap 6 BUN 15 Creatinine 0.71 Est GFR ( Amer) > 60 Glucose 88 Calcium 8.8 Magnesium 1.7 TSH 2.94 Free T4 0.83 10/14/19 10/14/19 10/14/19 07:34 11:12 12:23 Troponin I 0.013 Cancelled 0.025 Impressions: Chest X-Ray 10/14/19 07:17 IMPRESSION: NO ACUTE RADIOGRAPHIC FINDING IN THE CHEST. Abdomen/Pelvis CT 10/14/19 07:50 IMPRESSION: 1. Hepatic steatosis. 2. No other evidence of acute intra-abdominal/pelvic process. 3. Stable infrarenal abdominal aortic aneurysm measuring up to 3.9 cm. Follow- up as below. 4. Stable additional incidental findings as above. Assessment and Plan - Diagnosis (1) Hypertensive urgency Is this a current diagnosis for this admission?: Yes Plan: Moderate improvement. Optimized. No history of cocaine abuse. Continue Coreg 25 mg p.o. twice daily. Lisinopril 40 mg p.o. daily. IV PRN hydralazine. IV PRN metoprolol. Adjust meds as needed. Outpatient PCP follow-up. (2) Intractable nausea and vomiting Is this a current diagnosis for this admission?: Yes Plan: Denies any vomiting. Still complaining of nausea. P.o. tolerant. Not sure if patient has cyclic vomiting or this is due to his chronic opiate dependency. Continue PRN antiemetics. Clear liquid diet. Advance as tolerated. (3) Opiate dependence, continuous Is this a current diagnosis for this admission?: Yes Plan: Home meds are MS Contin 30 mg twice daily and morphine IR 15 mg once daily at home. Resume home dose Ms-Contin and Morphine IR. Monitor for respiratory depression. Outpatient PCP and pain management follow-up. (4) Abdominal pain Qualifiers: Abdominal location: epigastric Qualified Code(s): R10.13 - Epigastric pain Is this a current diagnosis for this admission?: Yes Plan: Moderate improvement. Complaining epigastric abdominal pain. He has had this before with severe gastritis. Likely a component of chronic pancreatitis given history of alcohol abuse. CT abdomen pelvis negative for any acute change except for hepatic steatosis. IV Protonix daily. Carafate before meals and at bedtime. Pending H. pylori antigen. Clear liquid diet, advance as tolerated.
[2019-10-16] MEDS ORDERED: LISINOPRIL 10 MG TABLET PO ONE (18:00)
[2019-10-16] MEDS: METOPROLOL TARTRATE PF/INJ 5 MG/5 ML SDV IV PRN (19:50)
[2019-10-16] MEDS: ACETAMINOPHEN 325 MG TABLET PO PRN (22:21)
[2019-10-17] MEDS: MORPHINE SULFATE 10 MG/ML INJ IV PRN ×5 (04:28→21:51)
[2019-10-17] MEDS: PROMETHAZINE HCL INJ 25 MG/1 ML VIAL IV PRN ×2 (04:29→12:59)
[2019-10-17 05:37] LABS: ANION GAP 6 (5-19); BLOOD UREA NITROGEN 9 mg/dL (7-20); CALCIUM 9.1 mg/dL (8.4-10.2); CARBON DIOXIDE 23 mmol/L (22-30); CHLORIDE 107 mmol/L (98-107); GLUCOSE 111 mg/dL (75-110); POTASSIUM 3.6 mmol/L (3.6-5.0)
[2019-10-17] MEDS: POTASSI CL 20 MEQ/NS 1L 1,000 ML IV PRN (06:45)
[2019-10-17] MEDS ORDERED: LISINOPRIL 10 MG TABLET PO SCH (10:00)
[2019-10-17] MEDS: ENOXAPARIN SODIUM INJ 40 MG/0.4 ML DISP.SYRIN SUBCUT SCH (10:43)
[2019-10-17] MEDS: PANTOPRAZOLE SODIUM 40 MG VIAL IV SCH ×2 (10:43→21:54)
[2019-10-17] MEDS: SUCRALFATE 1 GM TABLET PO SCH ×4 (10:43→21:52)
[2019-10-17] MEDS: MORPHINE SULFATE SR 30 MG TABLET PO SCH ×2 (10:44→21:52)
[2019-10-17] MEDS: NICOTINE 21 MG/24 HR PATCH.TD24 TD SCH (10:44)
[2019-10-17] MEDS: CARVEDILOL 12.5 MG TABLET PO SCH ×2 (10:44→21:53)
--- NOTE | 2019-10-17 12:04 | PDOC PROGRESS REPORT ---
Subjective Progress Note for:: 10/17/19 Subjective:: LIZ PAGE JR is a 58 year old male with a past medical history of opiate dependent chronic pain, hypertension, and tobacco use with continuous use who presented to the emergency department today with a complaint of 3 days of nausea and vomiting, no longer tolerating p.o. fluids, and severe abdominal pain. Patient reports that he has been unable to hold down any of his medications for the past 3 days. Evaluation in the emergency department found hypertensive urgency (BP 210/114), tachycardia (110), leukocytosis (WBCs 25), unremarkable chemistry other than a slightly elevated calcium (11.1) negative urinalysis, UDS positive for opiates, EKG showing sinus arrhythmia, benign chest x-ray, and an abdominal/pelvic CT noted to have hepatic steatosis without evidence of acute findings. The emergency department provider provided multiple doses of IV hydralazine with minimal and brief effect on blood pressure but resulting in reflex tachycardia, IV lopressor was provided with slight improvement. Senior It Business Analyst consultation was obtained; recommended continuing PRN IV beta-blockers and monitoring on IMC. Therefore, patient is referred to the hospitalist service for admission management of the above-stated positive findings. 10/15/2019. Patient still complaining of nausea versus abdominal pain, otherwise denies any fever, chills, chest pain, shortness of breath, diarrhea, constipation or any urinary symptoms. 10/16/2019. No acute events overnight. Patient has significant improvement of his blood pressure, abdominal pain improving, p.o. tolerant, denies any fever, chills, nausea, vomiting, diarrhea, constipation or any urinary symptoms. Possible discharge home tomorrow. 10/17/2019. No acute events overnight. Unfortunately patient still complaining of abdominal pain, is p.o. tolerant, has not had any bowel movement, blood pressure not optimized. Denies any fever, chills, chest pain or shortness of breath. Reason For Visit: HYPERTENSIVE URGENCY Physical Exam Vital Signs: Temp Pulse Resp BP Pulse Ox 97.9 F 70 16 184/108 H 98 10/17/19 08:00 10/17/19 08:00 10/17/19 08:00 10/17/19 08:00 10/17/19 08:00 Intake & Output 10/16/19 10/17/19 10/18/19 06:59 06:59 06:59 Intake Total 1598 4616 Output Total 950 2450 Balance 648 2166 Weight 69.6 kg 70.5 kg General appearance: PRESENT: no acute distress, well-developed, well-nourished Head exam: PRESENT: atraumatic, normocephalic Respiratory exam: PRESENT: clear to auscultation pedro. ABSENT: rales, rhonchi, wheezes Cardiovascular exam: PRESENT: RRR. ABSENT: diastolic murmur, rubs, systolic murmur GI/Abdominal exam: PRESENT: normal bowel sounds, soft, tenderness. ABSENT: distended, guarding, mass, organolmegaly, rebound Extremities exam: PRESENT: full ROM. ABSENT: calf tenderness, clubbing, pedal e chanel Neurological exam: PRESENT: alert, awake, oriented to person, oriented to place, oriented to time, oriented to situation, CN II-XII grossly intact. ABSENT: motor sensory deficit Results Laboratory Results: 10/16/19 05:17 10/17/19 04:48 10/17/19 04:48 Sodium 136.1 L Potassium 3.6 Chloride 107 Carbon Dioxide 23 Anion Gap 6 BUN 9 Creatinine 0.73 Est GFR ( Amer) > 60 Glucose 111 H Calcium 9.1 10/14/19 10/14/19 10/14/19 07:34 11:12 12:23 Troponin I 0.013 Cancelled 0.025 Impressions: Chest X-Ray 10/14/19 07:17 IMPRESSION: NO ACUTE RADIOGRAPHIC FINDING IN THE CHEST. Abdomen/Pelvis CT 10/14/19 07:50 IMPRESSION: 1. Hepatic steatosis. 2. No other evidence of acute intra-abdominal/pelvic process. 3. Stable infrarenal abdominal aortic aneurysm measuring up to 3.9 cm. Follow- up as below. 4. Stable additional incidental findings as above. Assessment and Plan - Diagnosis (1) Hypertensive urgency Is this a current diagnosis for this admission?: Yes Plan: Improving. Not optimized. No history of cocaine abuse. Continue Coreg 25 mg p.o. twice daily. Increase lisinopril to 40 mg p.o. twice daily. IV PRN hydralazine. IV PRN metoprolol. Adjust meds as needed. Outpatient PCP follow-up. (2) Intractable nausea and vomiting Is this a current diagnosis for this admission?: Yes Plan: Denies any vomiting. Still complaining of nausea. P.o. tolerant. Not sure if patient has cyclic vomiting or this is due to his chronic opiate dependency. Continue PRN antiemetics. Clear liquid diet. Advance as tolerated. (3) Opiate dependence, continuous Is this a current diagnosis for this admission?: Yes Plan: Home meds are MS Contin 30 mg twice daily and morphine IR 15 mg once daily at home. Resume home dose Ms-Contin and Morphine IR. Monitor for respiratory depression. Outpatient PCP and pain management follow-up. (4) Abdominal pain Qualifiers: Abdominal location: epigastric Qualified Code(s): R10.13 - Epigastric pain Is this a current diagnosis for this admission?: Yes Plan: Moderate improvement. Complaining epigastric abdominal pain. He has had this before with severe gastritis. Likely a component of chronic pancreatitis given history of alcohol abuse. CT abdomen pelvis negative for any acute change except for hepatic steatosis. IV Protonix daily. Carafate before meals and at bedtime. Pending H. pylori antigen. Clear liquid diet, advance as tolerated.
[2019-10-17] MEDS: HYDRALAZINE HCL INJ/PF 20 MG/1 ML SDV IV PRN (12:10)
[2019-10-17] MEDS: ONDANSETRON HCL INJ/PF 4 MG/2 ML SDV IV PRN ×2 (12:10→19:35)
[2019-10-17] MEDS: LISINOPRIL 10 MG TABLET PO SCH ×2 (15:48→21:53)
[2019-10-17] MEDS: ACETAMINOPHEN 325 MG TABLET PO PRN (16:08)
[2019-10-18] MEDS: MORPHINE SULFATE 10 MG/ML INJ IV PRN ×2 (00:19→04:57)
[2019-10-18] MEDS: PROMETHAZINE HCL INJ 25 MG/1 ML VIAL IV PRN (04:58)
[2019-10-18] MEDS: SUCRALFATE 1 GM TABLET PO SCH ×2 (07:45→11:42)
[2019-10-18] MEDS: HYDRALAZINE HCL INJ/PF 20 MG/1 ML SDV IV PRN (08:38)
[2019-10-18] MEDS: CARVEDILOL 12.5 MG TABLET PO SCH (09:46)
[2019-10-18] MEDS: MORPHINE SULFATE SR 30 MG TABLET PO SCH (09:47)
[2019-10-18] MEDS: ENOXAPARIN SODIUM INJ 40 MG/0.4 ML DISP.SYRIN SUBCUT SCH (09:47)
[2019-10-18] MEDS: LISINOPRIL 10 MG TABLET PO SCH (09:48)
[2019-10-18] MEDS: NICOTINE 21 MG/24 HR PATCH.TD24 TD SCH (09:48)
[2019-10-18] MEDS: PANTOPRAZOLE SODIUM 40 MG VIAL IV SCH (09:48)
[2019-10-18] MEDS ORDERED: AMLODIPINE BESYLATE 5 MG TABLET PO SCH (10:00)
--- NOTE | 2019-10-18 11:22 | RADIOLOGY REPORT (SQ) ---
EXAM DESCRIPTION: [facility] DUPLEX ART/JUDY FLOW IMAGES COMPLETED DATE/TIME: 10/18/2019 11:07 am REASON FOR STUDY: Difficult to control HTN. r/o Renal A stenosis I16.0 HYPERTENSIVE URGENCY COMPARISON: None. TECHNIQUE: Realtime and static grayscale images acquired. Selected color Doppler, velocities and spe ctral images recorded. LIMITATIONS: None. FINDINGS: RIGHT KIDNEY: RENAL ARTERY VELOCITIES: 128- 228 cm/sec. Segmental artery velocity 72 cm/sec. RENAL VEIN: Color doppler flow present, patent. VELOCITY RATIO: 2.3. Normal waveforms. KIDNEY: Normal size. No significant pathology. LEFT KIDNEY: RENAL ARTERY VELOCITIES: 146- 184 cm/sec. Segmental artery velocity 48 cm/sec. RENAL VEIN: Color doppler flow present, patent. VELOCITY RATIO: 1.86. Normal waveforms. KIDNEY: Normal size. No significant pathology. BLADDER: Normal. OTHER: The aorta looks dilated distally, aneurysmal at 3.8 cm. Mild echogenic potential dissection f lap. Recent CT from several days ago shows irregular plaque through this area, no clear dissection h owever. IMPRESSION: 1. Renal artery velocities are within normal limits, no suggestion of renal artery stenosis. 2. Irregular distal aorta, see recent CT abdomen and pelvis. COMMENT: NORMAL RENAL ARTERY/AORTA VELOCITY RATIO IS LESS THAN OR EQUAL TO 3.5. TECHNICAL DOCUMENTATION: JOB ID: [id number] 2010 [employer]- All Rights Reserved Reading location - IP/workstation name: [email or web address]
[2019-10-18] MEDS ORDERED: BISACODYL 5 MG TABEC PO ONE (11:36)
[2019-10-18 11:52] VITALS: BP 148/85
[2019-10-18 12:08] LABS: CHOLESTEROL 165.39 mg/dL (0-200); TRIGLYCERIDES 205 mg/dL (<150)
[2019-10-18 12:19] LABS: DIRECT LDL 115 mg/dL (<100)
--- NOTE | 2019-10-19 15:37 | PDOC DISCHARGE SUMMARY ---
Impression - Admit/DC Date/PCP Admission Date/Primary Care Provider: 10/15/19 16:11 KASEY ANDRES PA-C Discharge Date: 10/18/19 - Discharge Diagnosis (1) Hypertensive urgency Is this a current diagnosis for this admission?: Yes (2) Intractable nausea and vomiting Is this a current diagnosis for this admission?: Yes (3) Opiate dependence, continuous Is this a current diagnosis for this admission?: Yes (4) Abdominal pain Is this a current diagnosis for this admission?: Yes (5) AAA (abdominal aortic aneurysm) Is this a current diagnosis for this admission?: Yes (6) Tobacco abuse Is this a current diagnosis for this admission?: Yes - Additional Information Resuscitation Status: Full Code Discharge Diet: As Tolerated, Cardiac Discharge Activity: Activity As Tolerated Referrals: KASEY ANDRES PA-C [Primary Care Provider] - 10/25/19 9:00 am Prescriptions: Carvedilol 25 mg PO BID 30 Days #60 tablet Amlodipine Besylate [Norvasc 5 mg Tablet] 5 mg PO DAILY 30 Days #30 tablet Pantoprazole Sodium 40 mg PO BID 28 Days #42 tablet. Lisinopril [Zestril] 40 mg PO BID 30 Days #60 tablet Home Medications: Morphine Sulfate [Morphine Ir 15 mg Tablet] 15 mg PO DAILYP PRN MDD 2 TABS 11/13/17 Morphine Sulfate [Morphine Sulfate ER] 30 mg PO Q12 10/14/19 Amlodipine Besylate [Norvasc 5 mg Tablet] 5 mg PO DAILY 30 Days #30 tablet 10/18/19 Carvedilol 25 mg PO BID 30 Days #60 tablet 10/18/19 Lisinopril [Zestril] 40 mg PO BID 30 Days #60 tablet 10/18/19 Pantoprazole Sodium 40 mg PO BID 28 Days #42 tablet. 10/18/19 History of Present Illiness History of Present Illness: LIZ PAGE JR is a 58 year old male with a past medical history of opiate dependent chronic pain, hypertension, and tobacco use with continuous use who presented to the emergency department today with a complaint of 3 days of nausea and vomiting, no longer tolerating p.o. fluids, and severe abdominal pain. Patient reports that he has been unable to hold down any of his medications for the past 3 days. Evaluation in the emergency department found hypertensive urgency (BP 210/114), tachycardia (110), leukocytosis (WBCs 25), unremarkable chemistry other than a slightly elevated calcium (11.1) negative urinalysis, UDS positive for opiates, EKG showing sinus arrhythmia, benign chest x-ray, and an abdominal/pelvic CT noted to have hepatic steatosis without evidence of acute findings. The emergency department provider provided multiple doses of IV hydralazine with minimal and brief effect on blood pressure but resulting in reflex tachycardia, IV lopressor was provided with slight improvement. Threader consultation was obtained; recommended continuing PRN IV beta-blockers and monitoring on IM. Therefore, patient is referred to the hospitalist service for admission management of the above-stated positive findings. Hospital Course Hospital Course: (1) Hypertensive urgency Resistant hypertension. Improved however not optimized. No history of cocaine abuse. Renal Doppler negative for renal artery stenosis. Was started on multiple medications and his medication lower adjusted daily. Discharged on Coreg 25 mg p.o. twice daily. Lisinopril 40 mg p.o. twice daily. Amlodipine 5 mg p.o. daily. Patient extensively advised on importance of controlling his BP. An appointment with his PCP was obtained on 10/25/2019. (2) Intractable nausea and vomiting Moderate improvement. Nausea vomiting resolved. P.o. tolerant. Not sure if patient has cyclic vomiting or this is due to his chronic opiate dependency. Was a started on continue PRN antiemetics and diet advance as tolerated. Abdominal ultrasound negative for pancreatitis or any acute abnormality except for hepatic encephalopathy and abdominal aortic aneurysm 3.5 cm. (3) Opiate dependence, continuous Home meds are MS Contin 30 mg twice daily and morphine IR 15 mg once daily at home. Resumed home dose Ms-Contin and Morphine IR. Patient was advised to follow-up with his pain management doctor and possibly taper down his opiates if possible. (4) Abdominal pain Resolved. He has had this before with severe gastritis. Likely a component of chronic pancreatitis given history of alcohol abuse however CT abdomen negative for chronic pancreatitis. CT abdomen pelvis negative for any acute change except for hepatic steatosis. Was a started on IV Protonix IV twice daily. H. pylori antigen obtained. Was discharged on pantoprazole 40 mg p.o. daily for another 4 weeks. (5) AAA (abdominal aortic aneurysm) Segmental finding. Abdominal aortic aneurysm 3.9 cm. Patient was counseled on importance of BP control and tobacco cessation. Patient was advised to follow-up with PCP for continuous monitoring of his AAA. Renal artery Doppler did not show extension of aneurysm to the renal arteries. (6) Tobacco abuse Patient extensively advised on tobacco cessation as patient has AAA and uncontrolled hypertension. Patient voiced understanding. Physical Exam Vital Signs: Temp Pulse Resp BP Pulse Ox 98.2 F 96 18 148/85 H 97 10/18/19 11:54 10/18/19 11:54 10/18/19 11:54 10/18/19 11:54 10/18/19 11:54 Intake & Output 10/18/19 10/19/19 10/20/19 06:59 06:59 06:59 Intake Total 1950 Output Total 2800 Balance -850 Weight 69.7 kg General appearance: PRESENT: no acute distress, well-developed, well-nourished Head exam: PRESENT: atraumatic, normocephalic Teeth exam: PRESENT: poor dentation Respiratory exam: PRESENT: clear to auscultation pedro. ABSENT: rales, rhonchi, wheezes GI/Abdominal exam: PRESENT: normal bowel sounds, soft, tenderness. ABSENT: distended, guarding, mass, organolmegaly, rebound Extremities exam: PRESENT: full ROM. ABSENT: calf tenderness, clubbing, pedal edema Neurological exam: PRESENT: alert, awake, oriented to person, oriented to place, oriented to time, oriented to situation, CN II-XII grossly intact. ABSENT: motor sensory deficit Skin exam: PRESENT: dry, intact, warm. ABSENT: cyanosis, rash Results Laboratory Results: WBC 9.5 10^3/uL (4.0-10.5) 10/16/19 05:17 RBC 4.34 10^6/uL (4.35-5.55) L 10/16/19 05:17 Hgb 13.6 g/dL (13.5-17.0) D 10/16/19 05:17 Hct 39.2 % (37.9-51.0) 10/16/19 05:17 MCV 90 fl (80-97) 10/16/19 05:17 MCH 31.2 pg (27.0-33.4) 10/16/19 05:17 MCHC 34.6 g/dL (32.0-36.0) 10/16/19 05:17 RDW 14.0 % (11.5-14.0) 10/16/19 05:17 Plt Count 217 10^3/uL (150-450) 10/16/19 05:17 Lymph % (Auto) 21.9 % (13-45) 10/16/19 05:17 [place] % (Auto) 8.7 % (3-13) 10/16/19 05:17 Eos % (Auto) 0.3 % (0-6) 10/16/19 05:17 Baso % (Auto) 1.1 % (0-2) 10/16/19 05:17 Absolute Neuts (auto) 6.5 10^3/uL (1.7-8.2) 10/16/19 05:17 Absolute Lymphs (auto) 2.1 10^3/uL (0.5-4.7) 10/16/19 05:17 Absolute Monos (auto) 0.8 10^3/uL (0.1-1.4) 10/16/19 05:17 Absolute Eos (auto) 0.0 10^3/uL (0.0-0.6) 10/16/19 05:17 Absolute Basos (auto) 0.1 10^3/uL (0.0-0.2) 10/16/19 05:17 Total Counted 100 10/14/19 06:10 Seg Neutrophils % 68.0 % (42-78) 10/16/19 05:17 Seg Neuts % (Manual) 94 % (42-78) H 10/14/19 06:10 Band Neutrophils % 1 % (3-5) L 10/14/19 06:10 Lymphocytes % (Manual) 2 % (13-45) L 10/14/19 06:10 Monocytes % (Manual) 3 % (3-13) 10/14/19 06:10 Eosinophils % (Manual) 0 % (0-6) 10/14/19 06:10 Basophils % (Manual) 0 % (0-2) 10/14/19 06:10 Abs Neuts (Manual) 23.8 10^3/uL (1.7-8.2) H 10/14/19 06:10 Abs Lymphs (Manual) 0.5 10^3/uL (0.5-4.7) 10/14/19 06:10 Abs Monocytes (Manual) 0.8 10^3/uL (0.1-1.4) 10/14/19 06:10 Absolute Eos (Manual) 0.0 10^3/uL (0.0-0.6) 10/14/19 06:10 Abs Basophils (Manual) 0.0 10^3/uL (0.0-0.2) 10/14/19 06:10 Platelet Comment ADEQUATE 10/14/19 06:10 RBC Morph Comment NORMO-CYTIC/CHROMIC 10/14/19 06:10 Sodium 136.1 mmol/L (137-145) L 10/17/19 04:48 Potassium 3.6 mmol/L (3.6-5.0) 10/17/19 04:48 Chloride 107 mmol/L (98-107) 10/17/19 04:48 Carbon Dioxide 23 mmol/L (22-30) 10/17/19 04:48 Anion Gap 6 (5-19) 10/17/19 04:48 BUN 9 mg/dL (7-20) 10/17/19 04:48 Creatinine 0.73 mg/dL (0.52-1.25) 10/17/19 04:48 Est GFR ( Amer) > 60 (>60) 10/17/19 04:48 Est GFR (MDRD) Non-Af > 60 (>60) 10/17/19 04:48 Glucose 111 mg/dL (75-110) H 10/17/19 04:48 Calcium 9.1 mg/dL (8.4-10.2) 10/17/19 04:48 Magnesium 1.7 mg/dL (1.6-2.3) 10/16/19 05:17 Total Bilirubin 1.4 mg/dL (0.2-1.3) H 10/14/19 06:10 Direct Bilirubin 0.4 mg/dL (0.0-0.4) 10/14/19 06:10 Neonat Total Bilirubin Not Reportable 10/14/19 06:10 Neonat Direct Bilirubin Not Reportable 10/14/19 06:10 Neonat Indirect Bili Not Reportable 10/14/19 06:10 AST 39 U/L (17-59) 10/14/19 06:10 ALT 22 U/L (<50) 10/14/19 06:10 Alkaline Phosphatase 132 U/L (38-126) H 10/14/19 06:10 Troponin I 0.025 ng/mL 10/14/19 12:23 Total Protein 9.2 g/dL (6.3-8.2) H 10/14/19 06:10 Albumin 4.9 g/dL (3.5-5.0) 10/14/19 06:10 Triglycerides 205 mg/dL (<150) H 10/17/19 04:48 Cholesterol 165.39 mg/dL (0-200) 10/17/19 04:48 LDL Cholesterol Direct 115 mg/dL (<100) H 10/17/19 04:48 VLDL Cholesterol 41.0 mg/dL (10-31) H 10/17/19 04:48 HDL Cholesterol 32 mg/dL (>40) L 10/17/19 04:48 Lipase 37.9 U/L (23-300) 10/14/19 06:10 TSH 2.94 uIU/mL (0.47-4.68) 10/16/19 05:17 Free T4 0.83 ng/dL (0.78-2.19) 10/16/19 05:17 Urine Color YELLOW 10/14/19 09:27 Urine Appearance CLEAR 10/14/19 09:27 Urine pH 8.0 (5.0-9.0) 10/14/19 09:27 Ur Specific [place] 1.033 10/14/19 09:27 Urine Protein NEGATIVE mg/dL (NEGATIVE) 10/14/19 09:27 Urine Glucose (UA) NEGATIVE mg/dL (NEGATIVE) 10/14/19 09:27 Urine Ketones NEGATIVE mg/dL (NEGATIVE) 10/14/19 09:27 Urine Blood NEGATIVE (NEGATIVE) 10/14/19 09:27 Urine Nitrite NEGATIVE (NEGATIVE) 10/14/19 09:27 Urine Bilirubin NEGATIVE (NEGATIVE) 10/14/19 09:27 Urine Urobilinogen NEGATIVE mg/dL (<2.0) 10/14/19 09:27 Ur Leukocyte Esterase NEGATIVE (NEGATIVE) 10/14/19 09:27 Urine WBC (Auto) 0 /HPF 10/14/19 09:27 Urine RBC (Auto) 1 /HPF 10/14/19 09:27 U Hyaline Cast (Auto) 1 /LPF 10/14/19 09:27 Squamous Epi Cells Auto <1 /HPF 10/14/19 09:27 Urine Mucus (Auto) RARE /LPF 10/14/19 09:27 Urine Ascorbic Acid NEGATIVE (NEGATIVE) 10/14/19 09:27 Urine Opiates Screen UNCONFIRMED POSITIVE 10/14/19 09:27 Urine Methadone Screen NEGATIVE 10/14/19 09:27 Ur Barbiturates Screen NEGATIVE 10/14/19 09:27 Ur Phencyclidine Scrn NEGATIVE 10/14/19 09:27 Ur Amphetamines Screen NEGATIVE 10/14/19 09:27 U Benzodiazepines Scrn NEGATIVE 10/14/19 09:27 Urine Cocaine Screen NEGATIVE 10/14/19 09:27 U Marijuana (THC) Screen NEGATIVE 10/14/19 09:27 10/14/19 10/14/19 10/14/19 07:34 11:12 12:23 Troponin I 0.013 Cancelled 0.025 Impressions: Chest X-Ray 10/14/19 07:17 IMPRESSION: NO ACUTE RADIOGRAPHIC FINDING IN THE CHEST. Abdomen/Pelvis CT 10/14/19 07:50 IMPRESSION: 1. Hepatic steatosis. 2. No other evidence of acute intra-abdominal/pelvic process. 3. Stable infrarenal abdominal aortic aneurysm measuring up to 3.9 cm. Follow- up as below. 4. Stable additional incidental findings as above. Vascular Ultrasound 10/18/19 09:56 IMPRESSION: 1. Renal artery velocities are within normal limits, no suggestion of renal artery stenosis. 2. Irregular distal aorta, see recent CT abdomen and pelvis. Stroke Is this a Stroke Patient?: No Acute Heart Failure - Is this a Heart Failure Patient?: No
== END 2019-10-18 14:17 | disposition home or self-care (01) | DRG 305 ==
LOC: ER 06:01 → INTOOBSV 14:01 → EH 14:01 → 3W 15:52 → OBSVTOIN 10-15 16:11
PROVIDERS: ADMIT Internal Medicine; ATTEND Internal Medicine
DX: I16.0 Hypertensive urgency (principal); F11.20 Opioid dependence, uncomplicated; M19.90 Unspecified osteoarthritis, unspecified site; G89.29 Other chronic pain; F17.210 Nicotine dependence, cigarettes, uncomplicated; I71.4 Abdominal aortic aneurysm, without rupture; Z82.49 Family history of ischemic heart disease and other diseases of the circulatory system; Z83.3 Family history of diabetes mellitus; Z90.49 Acquired absence of other specified parts of digestive tract; Z79.899 Other long term (current) drug therapy
CPT/HCPCS: 36415; 71045; 74177; 80048; 80053; 80061; 80307; 81001; 83690; 83735; 84439; 84443; 84484; 85025; 85027; 87040; 93005; 93010; 93976; 94640; 96361; 96374; 96375; 96376; 99285; C9113; G0378; J0360; J0780; J1170; J1644; J1650; J2270; J2405; J2550; J3480; J3490; J7030